=== PATIENT | female | born 1995 | race Caucasian/White ===

== ENCOUNTER → 2016-07-25 | Outpatient (CLI) | payer MEDICAID ==
[~2016-07-25] MED LIST: BUPR-42 PO; HYDR-3730 PO; HYDR-3812 PO; IBUP-30 PO
--- OUTSIDE RECORDS SUMMARY | 2016-07-25 13:53 | XMS REPORT ---
Author Author ROMYSCOOTER EMANUEL Organization [facility] Address [address] [place] [address] Care Team Providers Care Plumbing Mechanic Name Role Phone SCOOTER STANTON Unavailable PROBLEMS Type Condition ICD9-CM Code BGU08-RP Code Onset Dates Condition Status SNOMED Code Problem Severe episode of recurrent major depressive disorder, without psychotic features F33.2 Active 67958855 Assessment Severe episode of recurrent major depressive disorder, without psychotic features F33.2 Apr, Active [id number] Assessment STD exposure Z20.2 Apr, Active [id number] ALLERGIES Substance Reaction Event Type Date Status Amoxicillin Unknown Drug Allergy Apr, Active Pertussis, Acellular Unknown Non Drug Allergy Apr, Active SOCIAL HISTORY No smoking Hx information available PLAN OF CARE Activity Details Pending Test GC/CHLAM PROBE (STATE) 2 - 3 Days (Saturday),Reason: VITAL SIGNS Height 64 in 2016-04-27 Weight 148.4 lbs 2016-04-27 Heart Rate 74 bpm 2016-04-27 Respiratory Rate 16 2016-04-27 BMI 25.47 kg/m2 2016-04-27 Blood pressure systolic 121 mmHg 2016-04-27 Blood pressure diastolic 67 mmHg 2016-04-27 MEDICATIONS Medication Instructions Dosage Frequency Start Date End Date Duration Status Fluoxetine HCl 20 mg Orally Once a day 1 tablet in the morning 24h Apr, 30 day(s) Active Mirena 20 MCG/24HR as directed Feb, Active RESULTS Name Result Date Reference Range TRICHOMONAS (IN HOUSE) 2016-04-27 TRICHOMONAS Negative Control + Lot # [id number] Exp date BACTERIAL VAGINOSIS (IN HOUSE) 2016-04-27 RESULTS Negative Control + Lot # [id number] Exp date GC/CHLAM PROBE (STATE) 2016-04-27 CHLAMYDIA Neg GC Neg PROCEDURES Procedure Date Ordered Related Diagnosis Body Site No Charge Apr 27, 2016 LAB NOT BILLED BY [facility] Apr 27, 2016 Office Visit, Est Pt., Level 3 Apr 27, 2016 ANDRES VAG, DNA, DIR PROBE Apr 27, 2016 IMMUNIZATIONS No Known Immunizations
--- NOTE | 2016-07-25 20:37 | Diagnostic Imaging Report ---
INDICATION: Right breast mass. EXAMINATION: Ultrasound of the right breast. COMPARISON: No prior study is available for comparison. FINDINGS: By history, the patient has a palpable mass in the 6 o'clock position of the right breast. According to the patient, this has been there for approximately one year but is increasing in size. Ultrasound examination of the area of concern shows that there is a fairly well-circumscribed 3.3 x 1.6 x 1.9 cm solid mass. Just lateral to this mass, there is a much smaller 1.0 x 0.7 x 1.1 cm similar appearing solid mass. 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 If further evaluation is desired, then either ultrasound-guided biopsy or excisional biopsy would be recommended. No other abnormality is identified. According to patient, her mother was diagnosed with breast cancer at age 25. In my conversation with the patient, the patient stated that neither she nor her mother had been tested for breast cancer gene. I do feel it would be worthwhile for the patient to undergo testing for the breast cancer gene. Also, in lieu of a mammogram, a baseline MRI should also be performed. IMPRESSION: 1. There is a solid mass near the patient's palpable abnormality. There is a second much smaller mass in this same region. 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 Recommendations as above. 2. Given the patient's very strong family history for breast cancer, testing for the breast cancer Gene and a baseline MRI would also be recommended. 3. These results were were discussed with Dr. Lorraine Zhang.. ACR BI-RADS Category 4A: Low suspicion of malignancy. Result letter will be mailed to the patient. Note: At least 10% of breast cancer is not imaged by mammography. CRITICAL FINDINGS Dictated by: Dictated on workstation # [id number]
== END ==
LOC: RAD 13:50
PROVIDERS: ATTEND Nurse Practitioner Family
DX: N63 Unspecified lump in breast (principal)
CPT/HCPCS: 76641

== ENCOUNTER → 2016-08-02 | Outpatient (CLI) | payer MEDICAID ==
[~2016-08-02] MED LIST changes: +GADOBUTROL 7.5 MMOL/7.5 ML (GADAVIST) VIAL IV ONE
--- NOTE | 2016-08-06 13:50 | Diagnostic Imaging Report ---
TECHNIQUE: Utilizing 1.5 Alia magnet, patient was placed in a prone position with 8-channel dual breast coil utilized. Axial STIR precontrasted image and axial T1 fat-sat postcontrast high-resolution images obtained. Sagittal T2-weighted images precontrast, bilaterally, as well. Sagittal vibrant temporal images were obtained pre and post contrast with bolus technique utilized of gadolinium. Images are postcontrast immediately and subsequently for 7 minutes. Pre and post contrasted images are then evaluated with [employer] for evaluation of possible angiogenesis. INDICATION: Palpable abnormality, breast mass. COMPARISON: Ultrasound dated 07/25/2016. FINDINGS: The bilateral breasts demonstrate moderate background glandularity. The bilateral breasts demonstrate mild background enhancement. No significant axillary or internal mammary adenopathy. Visualized portions of the upper abdomen are unremarkable. There is a lobulated T2 hyperintense mass with internal low signal intensity septations within the right breast at 6 o'clock within the retroareolar region. This demonstrates progressive kinetics. This measures 2.7 x 1.9 1.7 cm. This corresponds to the sonographically visualized mass as well as the palpable abnormality. Additionally, within the middle to posterior depth of the right breast near 7 o'clock, there is an ovoid circumscribed mass which is T2 hyperintense which measures 1.2 x 1.0 cm. This demonstrates progressive kinetics. No additional suspicious mass or non-mass enhancement within the right breast. No suspicious mass or non-mass enhancement within the left breast. IMPRESSION: 1. 2.7 cm mass within the right retroareolar region at 6 o'clock corresponding to the palpable abnormality and corresponding to the previously noted sonographic mass is of low suspicion of malignancy. This likely relates to a fibroadenoma. However, given size and patient's family history, an ultrasound-guided biopsy is recommended. 2. Circumscribed T2 hyperintense mass within the right breast at 7 o'clock, corresponding to the additional sonographically visualized mass. This likely relates to a fibroadenoma. If the biopsy of the dominant mass within the right breast demonstrates a fibroadenoma, then a followup ultrasound in six months would be recommended for this mass. However, if the biopsy from the dominant mass within the right breast within the retroareolar region demonstrates malignancy or a high-risk lesion, then ultrasound-guided biopsy of this second mass should also be performed. BI-RADS category 4: Low suspicion of malignancy, ultrasound-guided biopsy is recommended. FOLLOWUP: 1. Ultrasound-guided biopsy of the dominant mass within the right breast at 6 o'clock within the retroareolar region is recommended. 2. Management of the second smaller mass within the right breast at 7 o'clock as described above. 3. Given provided family history of breast cancer, consideration for genetic counseling is recommended. Dictated by: Dictated on workstation # [id number]
== END ==
LOC: RAD 15:06
PROVIDERS: ATTEND Nurse Practitioner Family
DX: N63 Unspecified lump in breast (principal); Z80.3 Family history of malignant neoplasm of breast
CPT/HCPCS: 77059

== ENCOUNTER 2016-09-17 14:49 | Outpatient (CLI) | payer MEDICAID ==
[~2016-09-17] VITALS: Ht 165.1 cm; Wt 66.7 kg
[~2016-09-17 14:49] MED LIST changes: -GADOBUTROL 7.5 MMOL/7.5 ML (GADAVIST) VIAL IV ONE; -HYDR-3730 PO
[2016-09-17 14:55] VITALS: BP 114/66
[2016-09-20] MEDS ORDERED: HYDR-3730 PO (10:44)
== END 2016-09-17 15:05 | disposition home or self-care (01) ==
LOC: PREOP 14:49
PROVIDERS: ATTEND Surgery Pediatric Surgery
DX: Z01.812 Encounter for preprocedural laboratory examination (principal); Z11.2 Encounter for screening for other bacterial diseases; N63 Unspecified lump in breast
CPT/HCPCS: 84703; 87081

== ENCOUNTER 2016-09-20 08:45 | Day surgery (SDC) | payer MEDICAID ==
[~2016-09-20] VITALS: Ht 165.1 cm; Wt 66.7 kg
[2016-09-20] MEDS ORDERED: ceFAZolin 1,000 MG (ANCEF) VIAL ONE (09:08)
[2016-09-20] MEDS ORDERED: NS (IVPB) 50 ML ONE (09:09)
[2016-09-20 09:10] VITALS: BP 109/61
[2016-09-20] MEDS ORDERED: BUP/EPI 0.5% 1:200,000 (SENSORCAINE) 30 ML VIAL ONE (09:16)
[2016-09-20] MEDS ORDERED: DEXAMETHASONE PF 10 MG/ML (DECADRON) VIAL ONE (09:23)
[2016-09-20] MEDS ORDERED: fentaNYL INJECTION 100 MCG/2 ML AMP ONE (09:23)
[2016-09-20] MEDS ORDERED: LIDOCAINE PF 2% 10 ML (XYLOCAINE) AMP ONE (09:23)
[2016-09-20] MEDS ORDERED: proPOfol 200 MG/20 ML (DIPRIVAN) VIAL IV ONE (09:23)
[2016-09-20] MEDS ORDERED: SEVOFLURANE (ULTANE) 15 ML INHAL SOLN ONE (09:23)
[2016-09-20] MEDS ORDERED: ONDANSETRON 4 MG/2 ML (SDV) Z0FRAN ONE ×2 (09:23→11:07)
[2016-09-20] MEDS ORDERED: MIDAZOLAM 2 MG/2 ML (VERSED) VIAL ONE (09:23)
[2016-09-20] MEDS ORDERED: LACTATED RINGERS 1,000 ML IV PRN (09:24)
--- NOTE | 2016-09-20 09:29 | Progress Note-Pre Operative ---
Pre-Operative Progress Note H&P Reviewed The H&P was reviewed, patient examined and no changes noted. Date H&P Reviewed: September 20, 2016 Time H&P Reviewed: 09:20 Pre-Operative Diagnosis: symptomatic palpable right breast mass VANDANA SALAZAR MD September 20, 2016 9:29 am
[2016-09-20] MEDS ORDERED: ACETAMINOPHEN 325 MG TABLET/CAPLET (TYLENOL) PO PRN (09:30)
[2016-09-20] MEDS ORDERED: morphine INJ 10 MG/ML 1ML (SYR OR VIAL) IVP PRN ×2 (09:30→11:00)
[2016-09-20] MEDS ORDERED: HYDROcodone/APAP 5 MG/325 MG (LORTAB) TAB PO ONE (09:30)
[2016-09-20] MEDS ORDERED: ceFAZolin 1 GM/NS 50 ML IVPB IV ONE ×2 (09:30)
[2016-09-20] MEDS ORDERED: ONDANSETRON 4 MG/2 ML (SDV) Z0FRAN IVP PRN ×2 (09:30→11:00)
--- NOTE | 2016-09-20 10:42 | Progress Note-Post Operative ---
Post-Operative Progess Note Surgeon (s)/Wharf Tender Head (s) Surgeon VANDANA SALAZAR MD Wharf Tender Head: bean vigil APRN Pre-Operative Diagnosis symptomatic palpable right breast mass Post-Operative Diagnosis same Post-Op Procedure Note Date of Procedure: September 20, 2016 Name of Procedure Performed: excsional biopsy breast mass (4cm) Description of the Procedure: excsional biopsy breast mass (4cm) Findings of the Procedure . Anesthesia Type general LMA Estimated blood loss (mL): minimal Specimen(s) collected/removed right breast mass VANDANA SALAZAR MD September 20, 2016 10:42 am
[2016-09-20] MEDS ORDERED: HYDR-3730 PO (10:44)
--- NOTE | 2016-09-20 10:45 | Discharge Inst-Surgical ---
D/C Lap Instructions-MARIE New, Converted, or Re-Newed RX: RX on Chart Follow Up Appt in 2 weeks Activity as tolerated No driving for 24 hours No driving while on pain medications Regular Diet Symptoms to Report: Fever over 101 degree F, Nausea/Vomiting Infection Signs and Symptoms to report: Increased redness, Foul odor of wound, Increased drainage Bathing instructions: May shower Operative Area Clean/Dry; Keep incision clean/dry If any problems/questions: Contact your physician or go to Emergency Room VANDANA SALAZAR MD September 20, 2016 10:45 am
[2016-09-20] MEDS ORDERED: MEPERIDINE (DEMEROL) INJ 50 MG/ML IVP PRN (11:00)
[2016-09-20] MEDS ORDERED: morphine INJ 10 MG/ML 1ML (SYR OR VIAL) ONE (11:07)
[2016-09-20] MEDS ORDERED: MEPERIDINE (DEMEROL) INJ 50 MG/ML ONE (11:19)
[2016-09-20 11:50] VITALS: BP 103/78
[2016-09-20 12:20] VITALS: BP 103/68
[2016-09-20 12:50] VITALS: BP 108/71
--- NOTE | 2016-09-21 03:23 | OPERATIVE REPORT ---
DATE OF SERVICE: 09/20/2016 ATTENDING PRIMARY CARE PHYSICIAN: Dr. Lorraine Zhang. PREOPERATIVE DIAGNOSIS: Symptomatic palpable right breast lesion. POSTOPERATIVE DIAGNOSIS: Symptomatic palpable right breast lesion with the dimensions of the lesion approximately 4 cm in size. PROCEDURE: Excisional right breast biopsy. SURGEON: Dr. Salazar. PHARMACY OPERATIONS SPECIALIST: [place] APRN. ANESTHESIA: General laryngeal mask airway. ESTIMATED BLOOD LOSS: Minimal. 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 DISPOSITION: The patient tolerated the procedure well. INDICATION: The patient is a 21-year-old female who is referred over to us for a symptomatic right breast lesion. She reports that the lesion has been around for approximately one year and did notice this more after being and giving . Overall, this lesion has been noticeable for the past 2-1/2 years. She has noticed increase in the size of the lesion and the lesion has become painful. An ultrasound was performed, which did show a solid mass. She then underwent an MRI which did show approximately a 3 cm lesion as well as another lesion adjacent or connected to it. Upon further questioning, she reports that she began menarche at around age 12 and has been twice with one miscarriage and 1 live . She has not had any previous breast biopsies. She also does not report any breast changes including no asymmetries or skin dimpling as well as no abnormal nipple discharge. She does report a remote family history of breast cancer with her maternal grandmother having the disease. Her mother also had benign disease; however, did undergo what sounds to be a simple right mastectomy. DESCRIPTION OF PROCEDURE: The patient was brought to the operating room, laid supine on the table. After adequate IV pain and sedative medications and general laryngeal mask airway intubation, the chest and neck were prepped and draped in standard surgical fashion. Then, 0.5% Marcaine with epinephrine was used to anesthetize the overlying skin at the nipple areolar complex. A crescent-shaped skin incision along the nipple areolar complex was then made using a 15 blade. The lesion was then identified and completely dissected out. The lesion appeared to be well-encapsulated, large and very hard in consistency and easily movable. 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 The lesion was then completely excised with a rim of normal appearing tissue approximately 1 cm using electrocautery. Good hemostasis was observed. The specimen was sent to pathology. The breast tissue was then loosely approximated using interrupted 3-0 Vicryl sutures. The skin was closed using 4-0 Monocryl running subcuticular suture. The wound was then cleaned and covered with Dermabond. The patient tolerated the procedure well. We will start IV and oral pain medication as well as a clear liquid diet. Once she is tolerating clears and has good pain control with oral pain medications and ambulating well, we will discharge her home. We will have her follow up in the office as well. Job ID: [id number] DocumentID: [id number] Dictated Date: 09/20/2016 10:51:12 Program Management Analyst Date: 09/21/2016 00:08:22 Dictated By: VANDANA SALAZAR MD MTDD
== END 2016-09-20 13:00 | disposition home or self-care (01) ==
LOC: SDC 08:45
PROVIDERS: ATTEND Surgery Pediatric Surgery
DX: N60.91 Unspecified benign mammary dysplasia of right breast (principal); Z80.3 Family history of malignant neoplasm of breast; Z87.891 Personal history of nicotine dependence
CPT/HCPCS: 88305

== ENCOUNTER 2016-10-16 14:56 | Emergency (ER) | payer MEDICAID ==
[~2016-10-16] VITALS: Ht 165.1 cm; Wt 68.0 kg
[~2016-10-16 14:56] MED LIST changes: +HYDR-3730 PO
[2016-10-16 15:22] LABS: BILIRUBIN,URINE NEGATIVE (NEGATIVE); KETONES,URINE NEGATIVE (NEGATIVE); LEUKOCYTE ESTERASE ,URINE 1+ (NEGATIVE); NITRITE,URINE NEGATIVE (NEGATIVE); PH,URINE 6.5 (5-9); PROTEIN,URINE NEGATIVE (NEGATIVE); UROBILINOGEN,URINE NORMAL (NORMAL)
[2016-10-16 15:36] LABS: MEAN PLATELET VOLUME 9.5 FL (7.4-10.4); RED BLOOD COUNT 5.06 10^6/uL (4.35-5.85); WHITE BLOOD COUNT 7.7 10^3/uL (4.3-11.0)
--- NOTE | 2016-10-16 17:15 | ED GU-Female ---
General Chief Complaint: -Female Stated Complaint: CRAMPING/BLEEDING DURING Nursing Triage Note: PT STATED SHE IS APPROX 7 WEEKS AND APPROX 30 MIN AGO HAD HEAVY BLEEDING AND CRAMPING. Nursing Sepsis Screen: No Definite Risk Source: patient, old records Exam Limitations: no limitations History of Present Illness Time seen by provider: 15:05 Initial Comments This 21-year-old woman presents to the emergency room at an estimated 7 weeks gestational age with complaints of vaginal bleeding. LMP was September 01. She had a positive test at home and at Dr. HUDSON's office. She has some mild cramping pain associated with the bleeding. This started about 30 minutes prior to arrival. She denies any recent intercourse or anything else vaginally. She has had a thin whitish discharge last couple of days but nothing unusual. She denies any dysuria. She has no significant pain. Allergies and Home Medications Allergies Coded Allergies: amoxicillin (Unverified Allergy, Mild, rash, 09/20/16) pertussis vaccine,adsorbed (Unverified Allergy, Unknown, 10/14/15) Home Medications Hydrocodone/Acetaminophen 1 Each Tablet, 1-2 EACH PO Q6H, #35 Prescribed by: VANDANA SALAZAR on 09/20/16 1044 Constitutional: no symptoms reported EENTM: no symptoms reported Respiratory: no symptoms reported Cardiovascular: no symptoms reported Gastrointestinal: no symptoms reported Genitourinary: see HPI : Yes LMP: Sep 01, 2016 Musculoskeletal: no symptoms reported Skin: no symptoms reported Psychiatric/Neurological: No Symptoms Reported Endocrine: No Symptoms Reported Past Udrkhzq-Rsuags-Ymqtkj Hx Patient Social History Alcohol Use: Denies Use Recreational Drug Use: No Smoking Status: Never a Smoker 2nd Hand Smoke Exposure: No Recent Foreign Travel: No Contact w/Someone Who Travel: No Recent Infectious Disease Expo: No Recent Hopitalizations: Yes (September TUMOR REMOVAL ON BREAST) Immunizations Up To Date Tetanus Booster (TDap): More than 5yrs PED Vaccines UTD: No Seasonal Allergies Seasonal Allergies: No Surgeries HX Surgeries: Yes Surgeries: Breast (lumpectomy) Respiratory Hx Respiratory Disorders: No Cardiovascular Hx Cardiac Disorders: No Neurological Hx Neurological Disorders: No Reproductive System Hx Reproductive Disorders: No Sexually Transmitted Disease: Yes (chlamydia 02/2015) HIV/AIDS: No Genitourinary Hx Genitourinary Disorders: No Gastrointestinal Hx Gastrointestinal Disorders: Yes Gastrointestinal Disorders: Gastroesophageal Reflux Musculoskeletal Hx Musculoskeletal Disorders: No Endocrine Hx Endocrine Disorders: No HEENT HX ENT Disorders: No Cancer Hx Cancer: No Psychosocial Hx Psychiatric Problems: Yes Behavioral Health Disorders: Depression Integumentary HX Skin/Integumentary Disorder: No Blood Transfusions Hx Blood Disorders: No Adverse Reaction to a Blood Tr: No Family Medical History Family Medial History: Patient reports no known family medical history. Physical Exam Vital Signs Vital Sign - Last 12Hours 10/16/16 15:03 Temp 97.9 Pulse 94 Resp 20 B/P (MAP) 134/65 Pulse Ox 98 O2 Delivery Room Air Capillary Refill : Less Than 3 Seconds General Appearance: WD/WN, no apparent distress HEENT: PERRL/EOMI, normal ENT inspection Neck: normal inspection Cardiovascular: regular rate, rhythm, no edema, no murmur Respiratory: lungs clear, normal breath sounds, no respiratory distress, no accessory muscle use Gastrointestinal: normal bowel sounds, soft, tenderness (minimal in the suprapubic region) Extremities: normal inspection, no pedal edema Neurologic/Psychiatric: patient representative II-XII nml as tested, no motor/sensory deficits, alert, normal mood/affect, oriented x 3 Skin: normal color, warm/dry Progress/Results/Core Measures Results/Orders Lab Results My Orders Vital Signs/I&O Blood Pressure Mean: 88 Point of Care Testing Urine -Bedside: Positive Progress Note : Progress Note Viable could not be confirmed, likely due to early gestational age. Discharge instructions discussed with patient. Expectations reviewed. Patient instructed to follow-up with Dr. HUDSON. Diagnostic Imaging Diagonstic Imaging: Ultrasound Plain Films/CT/US/NM/MRI: pelvis Comments NAME: BETTY BERNAL [facility] REC#: [id number] PT STATUS: DEP ER : 1995 PHYSICIAN: ERNESTO TORRES MD ADMIT DATE: 10/16/16/ER Signed Date of Exam: 10/16/16 US OB<14 WKS SNGLE W/TRANSVAG INDICATION: . Vaginal bleeding. Cramping. COMPARISON: None. TECHNIQUE: Transpelvic and transvaginal sonogram was performed. FINDINGS: There is a single intrauterine gestational sac, which measures approximately 1.4 cm in diameter. Within the gestational sac, a yolk sac is identified. There is also suggestion of a small pole. Possible pole measures approximately 2 mm in length consistent with 5 weeks and 6 days old gestation. heartbeat cannot be identified, but this may be related to early gestation. Ovaries cannot be adequately identified on either side, but no adnexal masses or free fluid is seen. CLINICAL DATES: Gestational age 6 weeks and 3 days. MUSHTAQ is 06/08/2017. IMPRESSION: 1. Single intrauterine gestational sac containing a yolk sac and possible pole. Based on size measurements of the gestational sac and potential pole, estimated gestational age is 6 weeks and 0 days with estimated date delivery of 06/11/2017. 2. heartbeat cannot be identified. This however may be related to early gestation. Correlation with serial beta-hCG is recommended. If indicated, short interval sonographic follow-up could be performed. Dictated by: Dictated on workstation # [id number] Dict: 10/16/16 1727 Trans: 10/17/1612 Interpreted by: RUSS WEBB Electronically signed by: RUSS WEBB 10/17/16 09 Departure Impression Impression: Primary Impression: Threatened miscarriage in early Disposition: HOME, SELF-CARE Condition: Stable Departure-Patient Inst. Decision time for Depature: 17:05 Referrals: PARUL HUDSON DO (PCP/Family) Primary Care Physician Patient Instructions: Threatened Miscarriage Add. Discharge Instructions: Follow-up with Dr. HUDSON as soon as possible. Contact his office in the morning for further instructions. For pain and cramping you may take Tylenol ( acetaminophen) up to 1000 g every 6 hours as needed. Stay well-hydrated. You should observe vaginal rest (nothing vaginally) until cleared by Dr. HUDSON. Return to the ER if you develop additional symptoms such as severe pain, severe bleeding, or fever greater than 100. All discharge instructions reviewed with patient and/or family. Voiced understanding. Copy Copies To 1: PARUL HUDSON JOSHUA T MD October 16, 2016 17:15
--- NOTE | 2016-10-16 17:34 | Diagnostic Imaging Report ---
INDICATION: . Vaginal bleeding. Cramping. COMPARISON: None. TECHNIQUE: Transpelvic and transvaginal sonogram was performed. FINDINGS: There is a single intrauterine gestational sac, which measures approximately 1.4 cm in diameter. Within the gestational sac, a yolk sac is identified. There is also suggestion of a small pole. Possible pole measures approximately 2 mm in length consistent with 5 weeks and 6 days old gestation. heartbeat cannot be identified, but this may be related to early gestation. Ovaries cannot be adequately identified on either side, but no adnexal masses or free fluid is seen. CLINICAL DATES: Gestational age 6 weeks and 3 days. MUSHTAQ is 06/08/2017. IMPRESSION: 1. Single intrauterine gestational sac containing a yolk sac and possible pole. Based on size measurements of the gestational sac and potential pole, estimated gestational age is 6 weeks and 0 days with estimated date delivery of 06/11/2017. 2. heartbeat cannot be identified. This however may be related to early gestation. Correlation with serial beta-hCG is recommended. If indicated, short interval sonographic follow-up could be performed. Dictated by: Dictated on workstation # [id number]
[2016-10-16 17:42] VITALS: BP 111/55
== END 2016-10-16 17:42 | disposition home or self-care (01) ==
LOC: EDUNIT# 14:56 → ER 14:58
DX: O20.0 Threatened abortion (principal); Z3A.01 Less than 8 weeks gestation of pregnancy
CPT/HCPCS: 36415; 76801; 76817; 81000; 84702; 84703; 85027; 99282

== ENCOUNTER → 2017-01-23 | Outpatient (CLI) | payer MEDICAID ==
--- NOTE | 2017-01-23 19:35 | Diagnostic Imaging Report ---
INDICATION: survey. TECHNIQUE: Multiple real-time grayscale images were obtained over the gravid uterus. COMPARISON: 10/16/2016. FINDINGS: The previous OB ultrasound exam of 10/16/2016 suggested an intrauterine gestational sac and raised the question of a pole. The gestational sac measurements were felt to correspond to a 6 week +/- 1-1/2 week. On this exam, there is a single live fetus in transverse presentation. heart motion is noted and a rate of 155 bpm is recorded. There are no abnormalities visualized, but the four-chamber heart view is less than optimal due to lie. The growth parameters are fairly uniform and have progressed as expected since the prior exam. The placenta is anterior and there is no previa. The amniotic fluid volume is within normal limits. IMPRESSION: 1. There is single live fetus of approximately 20 weeks gestation +/- 1 week. The EDC is June 12, 2017. 2. There are no abnormalities identified, but the four-chamber heart view is less than optimal. A short-term (4-6 weeks) follow-up ultrasound exam will be recommended for further study. 3. The growth parameters are fairly uniform. Biometrical measurements are as follows: Biparietal 4.53 cm, age 19 weeks 5 days. Head circumference 17.3 cm, age 19 weeks 6 days. Abdominal circumference 14.14 cm, age 19 weeks 4 days. Femur length 3.32 cm, age 20 weeks 3 days. Sonographic estimate age: 20 weeks 0 days. Sonographic estimated date of delivery: 06/12/2017. Estimated Weight: 320 gm (+/- 47 gm). LMP percentile: 40%. heart rate: 155 beats per minute. number: 1 of 1. Dictated by: Dictated on workstation # [id number]
== END ==
LOC: RAD 13:02
PROVIDERS: ATTEND Obstetrics & Gynecology
DX: Z36 Encounter for antenatal screening of mother (principal); Z3A.20 20 weeks gestation of pregnancy
CPT/HCPCS: 76805

== ENCOUNTER 2017-02-12 09:50 | Outpatient (CLI) | payer MEDICAID ==
[~2017-02-12] VITALS: Ht 165.1 cm; Wt 72.1 kg
[2017-02-12 10:30] VITALS: BP 113/62
[2017-02-12 11:34] LABS: BILIRUBIN,URINE NEGATIVE (NEGATIVE); KETONES,URINE NEGATIVE (NEGATIVE); LEUKOCYTE ESTERASE ,URINE 1+ (NEGATIVE); NITRITE,URINE NEGATIVE (NEGATIVE); PH,URINE 7 (5-9); PROTEIN,URINE NEGATIVE (NEGATIVE); UROBILINOGEN,URINE NORMAL (NORMAL)
[2017-02-12 11:40] LABS: WBC,URINE RARE /HPF
--- NOTE | 2017-02-13 15:04 | Physician Query-Final Dx ---
CLEMENCIA DUEÑAS 02/13/17 1504: Clinic Account Progress/Dx Physician Query: Please give diagnosis Date of Service Feb 12, 2017 at 09:50 JOSE MARIA HANKINS DO 03/01/17 1834: Clinic Account Progress/Dx DIAGNOSIS: Diagnosis fall in CLEMENCIA DUEÑAS Feb 13, 2017 15:04 JOSE MARIA HANKINS DO Mar 01, 2017 18:34
== END 2017-02-12 11:35 | disposition home or self-care (01) ==
LOC: LDRP 09:50 → WSo 09:50
PROVIDERS: ATTEND Obstetrics & Gynecology
DX: Z33.1 Pregnant state, incidental (principal); W10.9XXA Fall (on) (from) unspecified stairs and steps, initial encounter; Y92.018 Other place in single-family (private) house as the place of occurrence of the external cause
CPT/HCPCS: 81000; 87088; 99212

== ENCOUNTER → 2017-02-25 | Outpatient (CLI) | payer MEDICAID | LOC: CARD 12:35 | PROVIDERS: ATTEND Internal Medicine Cardiovascular Disease | DX: O99.89 Other specified diseases and conditions complicating pregnancy, childbirth and the puerperium (principal); R55 Syncope and collapse | CPT/HCPCS: 93306 ==

== ENCOUNTER 2017-04-15 12:09 | Observation (INO) | payer MEDICAID ==
[2017-04-15 12:15] VITALS: BP 130/66
[2017-04-15] MEDS ORDERED: BETAMETHASONE ACE/NA PHOS 6 MG/ML (CELESTONE SOLUSPAN) ONE (13:23)
--- NOTE | 2017-04-15 13:29 | Diagnostic Imaging Report ---
INDICATION: Vaginal bleeding. TECHNIQUE: Multiple real-time grayscale images were obtained over the gravid uterus. COMPARISON: 01/23/2017. FINDINGS: There is a single living intrauterine in cephalic presentation. The biometry correlates with gestational age of 32 weeks 3 days. The placenta is anterior. There is no previa. There is no evidence of abruption. Amniotic fluid index is 8.3. Heart rate is 143 beats per minute. The anatomical survey is grossly unremarkable. Biometrical measurements are as follows: Biparietal 8.3 cm, age 33 weeks 4 days. Head circumference 29.0 cm, age 32 weeks 0 days. Abdominal circumference 28.3 cm, age 32 weeks 3 days. Femur length 6.0 cm, age 31 weeks 3 days. Sonographic estimate age: 32 weeks 3 days. Sonographic estimated date of delivery: 06/07/17. Estimated Weight: 1908 gm (+/- 279 gm). LMP percentile: 52%. heart rate: 143 beats per minute. number: 1 of 1. IMPRESSION: Single living intrauterine with sonographically estimated gestational age of 32 weeks 3 days and estimated date of confinement of 06/07/2017. Dictated by: Dictated on workstation # [id number]
[2017-04-15] MEDS ORDERED: INFLUENZA TRIvalent 2017-2018 0.5 ML/45 MCG SYR IM ONE (13:30)
[2017-04-15] MEDS ORDERED: MAGNESIUM 4 GM/100 ML IVPB 100 ML IV ONE (15:26)
[2017-04-15] MEDS ORDERED: MAGNESIUM SULFATE DRIP 500 ML IV ONE (15:26)
[2017-04-15] MEDS ORDERED: D5 LR IV SOLUTION 1,000 ML IV ONE (15:26)
[2017-04-15] MEDS ORDERED: D5 LR IV SOLUTION 1,000 ML IV SCH (15:29)
[2017-04-15] MEDS ORDERED: CALCIUM GLUC. 10% 4.65 MEQ/10 ML VIAL IV PRN (15:30)
[2017-04-15] MEDS ORDERED: MAGNESIUM 4 GM/100 ML IVPB 100 ML IV NR (15:30)
[2017-04-15 15:50] VITALS: BP 125/62
[2017-04-15] MEDS ORDERED: MAGNESIUM SULFATE DRIP 500 ML IV SCH (15:59)
--- OUTSIDE RECORDS SUMMARY | 2017-04-15 16:04 | XMS REPORT ---
Author Author MILADY NG Organization [facility] Address [address] [place] [address] Care Team Providers Care Medical Assistant Supervisor Name Role Phone MILADY NG Unavailable PROBLEMS Type Condition ICD9-CM Code [id number] Code Onset Dates Condition Status SNOMED Code Problem Dental examination Z01.20 Active 995076444 Problem Severe episode of recurrent major depressive disorder, without psychotic features F33.2 Active [id number] ALLERGIES Substance Reaction Event Type Date Status Amoxicillin Unknown Drug Allergy Jun, Active Pertussis, Acellular Unknown Non Drug Allergy Jun, Active SOCIAL HISTORY Never Assessed PLAN OF CARE Activity Details Follow Up F/U mammogram, sooner prn Reason: VITAL SIGNS Height 64 in 2016-07-17 Weight 140.5 lbs 2016-07-17 Temperature 98.6 degrees Fahrenheit 2016-07-17 Heart Rate 68 bpm 2016-07-17 Respiratory Rate 18 2016-07-17 BMI 24.11 kg/m2 2016-07-17 Blood pressure systolic 112 mmHg 2016-07-17 Blood pressure diastolic 72 mmHg 2016-07-17 MEDICATIONS Medication Instructions Dosage Frequency Start Date End Date Duration Status Fluoxetine HCl 40 MG Orally Once a day 1 capsule in the morning 24h Apr 30 days Active Mirena 20 MCG/24HR as directed Feb, Active RESULTS No Results PROCEDURES No Known procedures IMMUNIZATIONS No Known Immunizations MEDICAL (GENERAL) HISTORY Type Description Date Medical History Depression Medical History Jun 12 2017 due date for this Hospitalization History child 2016
--- OUTSIDE RECORDS SUMMARY | 2017-04-15 16:04 | XMS REPORT ---
Author Author SCOOTER STANTON Organization [facility] Address [address] [place] [address] Care Team Providers Care Fan Engine Engineer Name Role Phone SCOOTER STANTON Unavailable PROBLEMS Type Condition ICD9-CM Code [id number] Code Onset Dates Condition Status SNOMED Code Problem Dental examination Z01.20 Active [id number] Problem Severe episode of recurrent major depressive disorder, without psychotic features F33.2 Active [id number] ALLERGIES Substance Reaction Event Type Date Status Amoxicillin Unknown Drug Allergy May, Active Pertussis, Acellular Unknown Non Drug Allergy May, Active SOCIAL HISTORY No smoking Hx information available PLAN OF CARE Activity Details Follow Up 6 Months Reason:Depression VITAL SIGNS Height 64 in 2016-05-24 Weight 145 lbs 2016-05-24 Temperature 98.3 degrees Fahrenheit 2016-05-24 Heart Rate 70 bpm 2016-05-24 Respiratory Rate 20 2016-05-24 BMI 24.89 kg/m2 2016-05-24 Blood pressure systolic 118 mmHg 2016-05-24 Blood pressure diastolic 76 mmHg 2016-05-24 MEDICATIONS Medication Instructions Dosage Frequency Start Date End Date Duration Status Mirena 20 MCG/24HR as directed Feb, Active Fluoxetine HCl 40 MG Orally Once a day 1 capsule in the morning 24h Apr 30 days Active RESULTS No Results PROCEDURES Procedure Date Ordered Related Diagnosis Body Site Office Visit, Est Pt., Level 3 May 24, 2016 IMMUNIZATIONS No Known Immunizations
--- OUTSIDE RECORDS SUMMARY | 2017-04-15 16:04 | XMS REPORT ---
Author Author SCOOTER STANTON [facility] Address [address] [place] [address] Care Team Providers Care Cake Decorator Name Role Phone SCOOTER STANTON Unavailable PROBLEMS Type Condition ICD9-CM Code [id number]-SD Code Onset Dates Condition Status SNOMED Code Problem Dental examination Z01.20 Active 609340244 Problem Severe episode of recurrent major depressive disorder, without psychotic features F33.2 Active [id number] ALLERGIES No Information SOCIAL HISTORY Never Assessed PLAN OF CARE VITAL SIGNS MEDICATIONS No Known Medications RESULTS No Results PROCEDURES No Known procedures IMMUNIZATIONS No Known Immunizations MEDICAL (GENERAL) HISTORY Type Description Date Medical History Depression Medical History Jun 12 2017 due date for this Hospitalization History child 2016
--- OUTSIDE RECORDS SUMMARY | 2017-04-15 16:04 | XMS REPORT ---
Author Author JEREMIAS RESENDIZ Organization [facility] Address [address] [place] [address] Care Team Providers Care Outside Rigger Name Role Phone JEREMIAS RESENDIZ Unavailable PROBLEMS Type Condition ICD9-CM Code YXZ75-DS Code Onset Dates Condition Status SNOMED Code Problem Dental examination Z01.20 Active [id number] Problem Severe episode of recurrent major depressive disorder, without psychotic features F33.2 Active 09004948 ALLERGIES Substance Reaction Event Type Date Status Amoxicillin Unknown Drug Allergy May, Active Pertussis, Acellular Unknown Non Drug Allergy May, Active SOCIAL HISTORY No smoking Hx information available PLAN OF CARE Activity Details Follow Up 2 - 3 Days, prn Reason: VITAL SIGNS Height 64 in 2016-06-05 Weight 141.3 lbs 2016-06-05 Temperature 98.5 degrees Fahrenheit 2016-06-05 Heart Rate 66 bpm 2016-06-05 Respiratory Rate 20 2016-06-05 Oximetry 96 % 2016-06-05 BMI 24.25 kg/m2 2016-06-05 Blood pressure systolic 102 mmHg 2016-06-05 Blood pressure diastolic 68 mmHg 2016-06-05 MEDICATIONS Medication Instructions Dosage Frequency Start Date End Date Duration Status Robitussin Chest Congestion 100 MG/5ML Orally every 4 hrs 10 ml as needed 4h May, Active Fluoxetine HCl 40 MG Orally Once a day 1 capsule in the morning 24h Apr 30 days Active PredniSONE 10 mg Orally twice a day 1 tablet 12h May, May, 05 days Active Mirena 20 MCG/24HR as directed Feb, Active RESULTS No Results PROCEDURES Procedure Date Ordered Related Diagnosis Body Site MEASURE BLOOD OXYGEN LEVEL Jun 05, 2016 Office Visit, Est Pt., Level 3 Jun 05, 2016 IMMUNIZATIONS No Known Immunizations
--- OUTSIDE RECORDS SUMMARY | 2017-04-15 16:04 | XMS REPORT ---
Author Author SCOOTER STANTON [facility] Address [address] [place] [address] Care Team Providers Care Applied Computer Science Professor Name Role Phone SCOOTER TSANTON Unavailable PROBLEMS Type Condition ICD9-CM Code [id number] Code Onset Dates Condition Status SNOMED Code Problem Dental examination Z01.20 Active 509745579 Problem Severe episode of recurrent major depressive disorder, without psychotic features F33.2 Active 83254559 ALLERGIES No Known Allergies SOCIAL HISTORY No smoking Hx information available PLAN OF CARE VITAL SIGNS MEDICATIONS Medication Instructions Dosage Frequency Start Date End Date Duration Status Fluoxetine HCl 40 MG Orally Once a day 1 capsule in the morning 24h Apr 30 days Active RESULTS No Results PROCEDURES No Known procedures IMMUNIZATIONS No Known Immunizations
--- OUTSIDE RECORDS SUMMARY | 2017-04-15 16:05 | XMS REPORT ---
Author Author MILADY NG [facility] Address [address] [place] [address] Care Team Providers Care Asphalt Spreader Name Role Phone MILADY NG Unavailable PROBLEMS Type Condition ICD9-CM Code QOO47-AV Code Onset Dates Condition Status SNOMED Code Problem Dental examination Z01.20 Active 183705485 Problem Severe episode of recurrent major depressive disorder, without psychotic features F33.2 Active [id number] ALLERGIES No Information SOCIAL HISTORY Never Assessed PLAN OF CARE VITAL SIGNS MEDICATIONS No Known Medications RESULTS Name Result Date Reference Range MRI : Breast, Bilateral 2016-08-02 PROCEDURES No Known procedures IMMUNIZATIONS No Known Immunizations MEDICAL (GENERAL) HISTORY Type Description Date Medical History Depression Medical History Jun 12 2017 due date for this Hospitalization History child 2015
[2017-04-15 16:15] VITALS: BP 120/62
[2017-04-15 16:30] VITALS: BP 106/59
[2017-04-15 16:40] VITALS: BP 116/66
--- NOTE | 2017-04-15 16:40 | History & Physical-OB ---
OB - Chief Complaint & HPI Date/Time Date of Admission: Date of Admission: Apr 15, 2017 at 3:00 pm Time Seen by Provider: 15:00 Chief Complaint/History OB-Reason for Admission/Chief: Labor Hx : 3 Hx Para: 1 Expected Date of Delivery: Jun 12, 2017 Gestational Age in Weeks: 31 Gestational Age in Days: 5 Other reason for admission: Patient presents with light vaginal bleeding and found to make cervical change Admission Nurse Assessment Rev: Yes History of Labs Apos Antibody neg RI RPR NR HBsAg NR HIV NR GC neg GBS unknown Allergies and Home Medications Allergies Coded Allergies: amoxicillin (Unverified Allergy, Mild, rash, 09/20/16) pertussis vaccine,adsorbed (Unverified Allergy, Unknown, 10/14/15) Home Medications No Active Prescriptions or Reported Meds OB - History Hx of Present Care: Yes Ultrasounds: Normal mid trimester US Obstetrical Complications: None Medical Complications: None Obstetrical History Hx Termination: Yes Hx Multiple Gestation: No Hx Stillbirth: No Hx Complication: No Hx Induced Hypertens: No Hx Maternal Gestational Diabet: No Delivery History Hx Dystocia: No Hx Large For Gestational Age I: No Hx Small for Gestational Age I: No Hx Section: No Hx Vaginal Delivery Post C-Sec: No Hx Blood Disorders: No Adverse Rxn to Tranfusion: No Patient Past Medical History PMHx: depression Social History/Family History HIV/AIDS: No Recent Infectious Disease Expo: No Sexually Transmitted Disease: Yes (chlamydia 02/2015) 2nd Hand Smoke Exposure: No Immunizations Hepatitis A: Yes Hepatitis B: Yes Tetanus Booster (TDap): More than 5yrs OB - Admission Exam Physical Exam Vitals: Vital Signs 04/15/17 16:15 Temp 98.0 Pulse 89 Resp 18 B/P (MAP) 120/62 O2 Delivery Room Air HEENT: NCAT Heart: Rhythm Normal Lungs: Clear Abdomen: Gravid Extremities: Normal Reflexes: Normal Cervical Dilatation: 4cm Effacement: 75% Station: -2 Membranes: Intact Heart Rate: 130's Accelerations: Accelerations Present Decelerations: Variable Decelerations Short Term Variability: Present Pneumatic Jacketer Variability: Average (6-25) Contractions on Admission: 6-10 Minutes Apart Intensity: Moderate Labs Laboratory Tests Test 04/15/17 16:00 Range/Units Magnesium Level 2.3 1.8-2.4 MG/DL OB - Assessment/Plan/Diagnosis Assessment Assessment: labor Plan Other Plan Spoke with Dr. Jones at [place] who accepted transfer due to PTL Starting MgSO4 for tocolysis Ancef given for GBS prophylaxis(PCN allergy) Transfer pending Discharge Diagnosis Diagnosis: 21 yo @ 31.5 labor GBS unknown PARUL HUDSON DO Apr 15, 2017 4:40 pm
[2017-04-15] MEDS ORDERED: ceFAZolin INJECTION 1,000 MG in NS (IVPB) 50 ML IV SCH (18:00)
[2017-04-16] MEDS ORDERED: BETAMETHASONE ACE/NA PHOS 6 MG/ML (CELESTONE SOLUSPAN) IM SCH (13:30)
== END 2017-04-15 16:55 | disposition designated cancer center or children's hospital (05) ==
LOC: WSo 12:09 → LDRP 12:10 → WSo 15:00
PROVIDERS: ADMIT Obstetrics & Gynecology; ATTEND Obstetrics & Gynecology
DX: O60.03 Preterm labor without delivery, third trimester (principal); Z3A.31 31 weeks gestation of pregnancy
CPT/HCPCS: 36415; 76816; 83735

== ENCOUNTER 2017-04-29 20:50 | Outpatient (CLI) | payer MEDICAID ==
[~2017-04-29] VITALS: Ht 165.1 cm; Wt 76.4 kg
[2017-04-29 21:30] VITALS: BP 128/62
[2017-04-29 22:00] VITALS: BP 118/57
--- NOTE | 2017-04-29 22:07 | Discharge Instructions ---
JOSEFA SAXENA MD Apr 29, 2017 10:07 pm
[2017-04-29 22:15] VITALS: BP 127/67
[2017-04-29 22:17] LABS: BASOPHILS % (AUTO) 0 % (0-10); EOSINOPHILS # (AUTO) 0.1 10^3/uL (0.0-0.3); EOSINOPHILS % (AUTO) 1 % (0-10); LYMPHOCYTES # (AUTO) 2.4 X 10^3 (1.0-4.0); LYMPHOCYTES % (AUTO) 21 % (12-44); MEAN CORPUSCULAR HEMOGLOBIN 29 PG (25-34); MEAN CORPUSCULAR HGB CONC 35 G/DL (32-36); MEAN CORPUSCULAR VOLUME 82 FL (80-99); MEAN PLATELET VOLUME 9.9 FL (7.4-10.4); MONOCYTES % (AUTO) 9 % (0-12); NEUTROPHILS # (AUTO) 7.7 X 10^3 (1.8-7.8); NEUTROPHILS % (AUTO) 69 % (42-75); PLATELET COUNT 203 10^3/uL (130-400); RED BLOOD COUNT 4.25 10^6/uL (4.35-5.85); RED CELL DISTRIBUTION WIDTH 13.6 % (10.0-14.5); WHITE BLOOD COUNT 11.2 10^3/uL (4.3-11.0)
--- NOTE | 2017-04-29 22:21 | History & Physical ---
History and Physical Date Seen by Provider: Apr 29, 2017 Time Seen by Provider: 22:10 THIS NOTE WILL SERVE ADMIT H&P, DISCHARGE AND TRANSFER NOTE this patient is a 21-year-old white female patient of Dr. Brand. She is currently 33-5/7 weeks gestation. She has had 1 prior vaginal delivery at 39 weeks gestation. Her history is unclear as to other she has had somewhere between 2 and 4 or 5 miscarriages all before 12 weeks gestation. She complains of spontaneous rupture membranes at 8 p.m. today with a large gush of clear fluid and has continued to leak fluid. She reports no contractions. She reports no bleeding. Indicates that one week ago she was evaluated for some vaginal bleeding and was found to be for half centimeters dilated. She apparently was given betamethasone on April 15 and April 16. She also apparently was treated with magnesium for some period of time as well. She does feel baby moving.. Patient was evaluated on presentation and found to be grossly ruptured. Cervix is 5 cm to 5-1/2 cm dilated and is stable over 45 minutes. The monitor shows no contractions and shows a normal heart rate pattern. Patient is afebrile. I have discussed the plan for stabilization with IV magnesium IV antibiotics oral antibiotics and IM steroids and plan for transfer to the have access to a NICU for her baby which likely would deliver in the short-term. Patient understands and agrees. I have discussed this patient's status with Dr. Lee at [facility] except the patient and transfer. Allergies are to amoxicillin which causes a rash Medications are none Past medical history, past surgical history, obstetric history, family history, and social histories are per the antepartum record. HEENT exam is normal Neck is supple with no lymphadenopathy or thyromegaly Abdomen is gravid soft nontender nondistended Extremities show no clubbing or cyanosis. There is no Homans sign pelvic exam per the labor and delivery nurse shows a cervix 5-5-1/2 cm dilated on presentation. Gross rupture membranes. Nitrazine positive. Vertex presentation. Recheck of the cervix after approximately 45 minutes shows no change. monitor shows no contractions monitor shows normal heart rate pattern with accelerations and no decelerations and better than average variability Lab work is pending including CBC and a UA and UDS Assessment and plan 33-5/7 weeks' gestation in patient with P PROM - Dr. Lee has agreed to accept this patient in transfer. She will be shipped via ground ambulance to [facility]. Patient has been started on IV magnesium with a 4 g bolus and then we'll run it 2 g an hour, she has a CBC pending she has a UDS pending she has a UA pending, she has been started on Ancef 2 g IV for empiric coverage. And a Escobar catheter has been placed. she has also been given an oral dose of azithromycin 500 mg and an IM dose of betamethasone [address] Brand is aware of this patient and agrees with her transfer as well. PPROM at 33-5/7 weeks' gestation Allergies and Home Medications Allergies Coded Allergies: amoxicillin (Unverified Allergy, Mild, rash, 09/20/16) pertussis vaccine,adsorbed (Unverified Allergy, Unknown, 10/14/15) Home Medications No Active Prescriptions or Reported Meds JOSEFA SAXENA MD Apr 29, 2017 10:21 pm
[2017-04-29 22:27] LABS: ALANINE AMINOTRANSFERASE 12 U/L (0-55); ALBUMIN 3.2 GM/DL (3.2-4.5); ANION GAP 13 MMOL/L (5-14); ASPARTATE AMINO TRANSFERASE 15 U/L (5-34); BILIRUBIN,TOTAL 0.3 MG/DL (0.1-1.0); BLOOD UREA NITROGEN 9 MG/DL (7-18); BUN/CREATININE RATIO 16; CALCIUM 8.9 MG/DL (8.5-10.1); CARBON DIOXIDE 16 MMOL/L (21-32); CHLORIDE 108 MMOL/L (98-107); CREATININE SERUM 0.55 MG/DL (0.60-1.30); GFR ESTIMATED > 60; GLUCOSE 108 MG/DL (70-105); POTASSIUM 3.6 MMOL/L (3.6-5.0); SODIUM 137 MMOL/L (135-145); TOTAL PROTEIN 5.7 GM/DL (6.4-8.2)
[2017-04-29 22:27] LABS: BILIRUBIN,URINE NEGATIVE (NEGATIVE); KETONES,URINE NEGATIVE (NEGATIVE); LEUKOCYTE ESTERASE ,URINE NEGATIVE (NEGATIVE); NITRITE,URINE NEGATIVE (NEGATIVE); PH,URINE 6.5 (5-9); PROTEIN,URINE NEGATIVE (NEGATIVE); UROBILINOGEN,URINE NORMAL (NORMAL)
[2017-04-29 22:30] VITALS: BP 109/58
[2017-04-30] MEDS ORDERED: BETAMETHASONE ACE/NA PHOS 6 MG/ML (CELESTONE SOLUSPAN) IM SCH (02:00)
[2017-04-30] MEDS ORDERED: MAGNESIUM 4 GM/100 ML IVPB 100 ML IV ONE (02:00)
[2017-04-30] MEDS ORDERED: AZITHROMYCIN 250 MG TAB (ZITHROMAX) PO ONE (02:00)
[2017-04-30] MEDS ORDERED: ceFAZolin 2 GM/50 ML NS 50 ML IV ONE (02:00)
[2017-04-30] MEDS ORDERED: MAGNESIUM SULFATE DRIP 500 ML IV SCH (02:00)
[2017-04-30] MEDS ORDERED: D5 LR IV SOLUTION 1,000 ML IV SCH (02:15)
[2017-04-30] MEDS ORDERED: INFLUENZA TRIvalent 2017-2018 0.5 ML/45 MCG SYR IM ONE (07:00)
== END 2017-04-29 22:57 | disposition short-term general hospital (02) ==
LOC: WSo 20:50 → LDRP 20:50 → WSo 22:57
PROVIDERS: ATTEND Obstetrics & Gynecology
DX: O42.913 Preterm premature rupture of membranes, unspecified as to length of time between rupture and onset of labor, third trimester (principal); Z3A.33 33 weeks gestation of pregnancy
CPT/HCPCS: 36415; 80053; 80306; 81000; 85025

== ENCOUNTER 2017-05-28 16:20 | Observation (INO) | payer MEDICAID ==
[~2017-05-28 16:20] MED LIST changes: +ACHD5005 PO; -HYDR-3812 PO
[2017-05-28] MEDS ORDERED: ACET325T38 PO (17:12)
[2017-05-28] MEDS ORDERED: VENlafaxine XR 75 MG (EFFEXOR XR) CAP PO NR (18:00)
[2017-05-28 19:20] VITALS: BP 121/73
[2017-05-29 04:00] VITALS: BP 117/75
[2017-05-29] MEDS ORDERED: VENL75CA PO (09:15)
--- OUTSIDE RECORDS SUMMARY | 2017-05-29 11:37 | XMS REPORT | Continuity of Care Document ---
Author Author [facility] Address Unknown Phone Unavailable Allergies Active Description Code Type Severity Reaction Onset Reported/Identified Relationship to Patient Clinical Status Yes pertussis, acellular Drug Allergy 05/25/2011 Yes pertussis vaccine,adsorbed [id number] Drug Allergy Unknown N/A 2015 Yes amoxicillin [id number] Drug Allergy Mild rash 09/20/2016 Medications There is no data. Problems Date Dx Coded Attending Type Code Diagnosis Diagnosed By 04/10/2010 726.90 ENTHESOPATHY OF UNSPECIFIED SITE 04/10/2010 726.90 ENTHESOPATHY OF UNSPECIFIED SITE 04/10/2010 726.90 ENTHESOPATHY OF UNSPECIFIED SITE 04/10/2010 AUDREY RITTER APRN 726.90 ENTHESOPATHY OF UNSPECIFIED SITE 04/10/2010 726.90 ENTHESOPATHY OF UNSPECIFIED SITE 05/14/2010 Ot 462 ACUTE PHARYNGITIS 06/13/2010 V05.8 GARDASIL 06/13/2010 V05.8 GARDASIL 06/13/2010 V05.8 GARDASIL 06/13/2010 AUDREY RITTER APRN V05.8 GARDASIL 06/13/2010 V05.8 GARDASIL 05/25/2011 078.19 WARTS, COMMON 05/25/2011 078.19 WARTS, COMMON 05/25/2011 078.19 WARTS, COMMON 05/25/2011 AUDREY RITTER APRN 078.19 WARTS, COMMON 05/25/2011 078.19 WARTS, COMMON 04/17/2012 V25.09 CONTRACEPTIVE COUNSELING - GENERAL 04/17/2012 V25.09 CONTRACEPTIVE COUNSELING - GENERAL 04/17/2012 V25.09 CONTRACEPTIVE COUNSELING - GENERAL 04/17/2012 AUDREY RITTER APRN V25.09 CONTRACEPTIVE COUNSELING - GENERAL 04/17/2012 V25.09 CONTRACEPTIVE COUNSELING - GENERAL 07/02/2012 V25.49 CONTRACEPTION SURVEILLANCE (REPEAT RX) 07/02/2012 V25.49 CONTRACEPTION SURVEILLANCE (REPEAT RX) 07/02/2012 V25.49 CONTRACEPTION SURVEILLANCE (REPEAT RX) 07/02/2012 ANGIE RITTER APRNIDI Rober V25.49 CONTRACEPTION SURVEILLANCE (REPEAT RX) 04/20/2013 ANGIE RITTER APRNIDI Rober 611.71 MASTODYNIA 04/20/2013 ANGIE RITTER APRNIDI Rober 611.72 LUMP OR MASS IN BREAST 04/20/2013 ANGIE RITTER APRNIDI Rober V25.9 CONTRACEPTION MANAGEMENT 04/20/2013 ANGIE RITTER APRNIDI Rober V74.5 STD SCREEN 10/16/2015 SCOOTER STANTON MD Ot F17.210 NICOTINE DEPENDENCE, CIGARETTES, UNCOMPL 10/16/2015 SCOOTER STANTON MD, Ot O32.6XX0 MATERNAL CARE FOR COMPOUND PRESENTATION, 10/16/2015 SCOOTER STANTON MD Ot O70.0 FIRST DEGREE PERINEAL LACERATION DURING 10/16/2015 SCOOTER STANTON MD Ot O71.82 OTHER SPECIFIED TRAUMA TO PERINEUM AND V 10/16/2015 SCOOTER STANTON MD Ot O76 ABNLT IN HEART RATE AND RHYTHM COM 10/16/2015 SCOOTER STANTON MD Ot O99.334 SMOKING (TOBACCO) COMPLICATING CHILDBIRT 10/16/2015 SCOOTER STANTON MD Ot O99.344 OTHER MENTAL DISORDERS COMPLICATING CHIL 10/16/2015 SCOOTER STANTON MD Ot Z37.0 SINGLE LIVE 10/16/2015 SCOOTER STANTON MD Ot Z3A.39 39 WEEKS GESTATION OF 07/26/2016 MILADY NG FOUR SLIDE MACHINE SETTER Ot N63 UNSPECIFIED LUMP IN BREAST 07/27/2016 MILADY NG FOUR SLIDE MACHINE SETTER Ot N63 UNSPECIFIED LUMP IN BREAST 08/02/2016 MILADY NG FOUR SLIDE MACHINE SETTER Ot N63 UNSPECIFIED LUMP IN BREAST 08/02/2016 MILADY NG FOUR SLIDE MACHINE SETTER Ot N63 UNSPECIFIED LUMP IN BREAST 08/02/2016 MILADY NG FOUR SLIDE MACHINE SETTER Ot Z80.3 FAMILY HISTORY OF MALIGNANT NEOPLASM OF 08/03/2016 MILADY NG FOUR SLIDE MACHINE SETTER Ot N63 UNSPECIFIED LUMP IN BREAST 08/03/2016 MILADY NG L FOUR SLIDE MACHINE SETTER Ot Z80.3 FAMILY HISTORY OF MALIGNANT NEOPLASM OF 08/08/2016 CHARLES NGCY L FOUR SLIDE MACHINE SETTER Ot N63 UNSPECIFIED LUMP IN BREAST 08/08/2016 CHARLES NGCY L FOUR SLIDE MACHINE SETTER Ot Z80.3 FAMILY HISTORY OF MALIGNANT NEOPLASM OF 08/09/2016 MILADY NG L FOUR SLIDE MACHINE SETTER Ot N63 UNSPECIFIED LUMP IN BREAST 08/16/2016 CHARLES NGCY L FOUR SLIDE MACHINE SETTER Ot N63 UNSPECIFIED LUMP IN BREAST 08/16/2016 MILADY NG L FOUR SLIDE MACHINE SETTER Ot Z80.3 FAMILY HISTORY OF MALIGNANT NEOPLASM OF 09/17/2016 VANDANA SALAZAR MD, Ot N63 UNSPECIFIED LUMP IN BREAST 09/17/2016 VANDANA SALAZAR MD, Ot Z01.812 ENCOUNTER FOR PREPROCEDURAL LABORATORY E 09/17/2016 VANDANA SALAZAR MD, Ot Z11.2 ENCOUNTER FOR SCREENING FOR OTHER BACTER 09/20/2016 VANDANA SALAZAR MD, Ot N60.91 UNSPECIFIED BENIGN MAMMARY DYSPLASIA OF 09/20/2016 VANDANA SALAZAR MD, Ot Z80.3 FAMILY HISTORY OF MALIGNANT NEOPLASM OF 09/20/2016 VANDANA SALAZAR MD, Ot Z87.891 PERSONAL HISTORY OF NICOTINE DEPENDENCE 09/24/2016 VANDANA SALAZAR MD, Ot N60.91 UNSPECIFIED BENIGN MAMMARY DYSPLASIA OF 09/24/2016 VANDANA SALAZAR MD, Ot Z80.3 FAMILY HISTORY OF MALIGNANT NEOPLASM OF 09/24/2016 VANDANA SALAZAR MD, Ot Z87.891 PERSONAL HISTORY OF NICOTINE DEPENDENCE 10/16/2016 ERNESTO TORRES MD Ot O20.0 THREATENED 10/16/2016 ERNESTO TORRES MD Ot Z3A.01 LESS THAN 8 WEEKS GESTATION OF 01/23/2017 MILADY NG FOUR SLIDE MACHINE SETTER Ot N63 UNSPECIFIED LUMP IN BREAST 01/23/2017 MILADY NG FOUR SLIDE MACHINE SETTER Ot N63 UNSPECIFIED LUMP IN BREAST 01/23/2017 MILADY NG FOUR SLIDE MACHINE SETTER Ot Z80.3 FAMILY HISTORY OF MALIGNANT NEOPLASM OF 02/07/2017 PARUL HUDSON DO Ot Z36 ENCOUNTER FOR SCREENING OF MOT 02/07/2017 PARUL HUDSON DO Ot Z3A.20 20 WEEKS GESTATION OF 02/12/2017 PARUL HUDSON DO Ot W10.9XXA FALL (ON) (FROM) UNSPECIFIED STAIRS AND 02/12/2017 PARUL HUDSON DO Ot Y92.[address] IN SINGLE-FAMILY (PRIVATE) KATIE 02/12/2017 PARUL HUDSON DO Ot Z33.1 STATE, INCIDENTAL 03/06/2017 PARUL HUDSON DO Ot W10.9XXA FALL (ON) (FROM) UNSPECIFIED STAIRS AND 03/06/2017 PARUL HUDSON DO Ot Y92.[address] IN SINGLE-FAMILY (PRIVATE) KATIE 03/06/2017 PARUL HUDSON DO Ot Z33.1 STATE, INCIDENTAL 03/14/2017 DANIEL BRITT MD Ot O99.89 OTH DISEASES AND CONDITIONS COMPL PREG/C 03/14/2017 DANIEL BRITT MD Ot R55 SYNCOPE AND COLLAPSE 04/15/2017 PARUL HUDSON DO Ot O60.03 LABOR WITHOUT DELIVERY, THIRD TR 04/15/2017 PARUL HUDSON DO Ot Z3A.31 31 WEEKS GESTATION OF 04/29/2017 JOSEFA SAXENA MD, Ot O42.913 PRETRM PADMINI ROM, UNSP TIME BETW RUPT AND 04/29/2017 JOSEFA SAXENA MD, Ot Z3A.33 33 WEEKS GESTATION OF Procedures Code Description [place] [address] THERAPUTIC INJ SQ/IM 04/17/2012 J1055 DEPO-PROVERA INJ 150 MG 04/17/2012 81636 URINE TEST (IN- HOUSE) 04/17/2012 45384 URINE TEST (IN- HOUSE) 07/02/2012 J1055 DEPO-PROVERA INJ 150 MG 07/02/2012 78845 THERAPUTIC INJ SQ/IM 07/02/2012 19954 THERAPUTIC INJ SQ/IM 09/29/2012 J1050 DEPO PROVERA 09/29/2012 20330 URINE TEST (IN- HOUSE) 09/29/2012 01984 URINE TEST (IN- HOUSE) 12/29/2012 J1050 DEPO PROVERA 12/29/2012 03818 GC/CHLAM URINE (STATE) 04/20/2013 79447 URINE TEST (IN- HOUSE) 04/20/2013 J1050 DEPO PROVERA 04/20/2013 69112 THERAPUTIC INJ SQ/IM 04/20/2013 [id number] INTRODUCE OTH THERAP SUBST IN PERIPH VEI 10/14/2015 [id number] REPAIR PERINEUM SKIN, EXTERNAL APPROACH 10/15/2015 [id number] REPAIR VULVA, EXTERNAL APPROACH 10/15/2015 [id number] DELIVERY OF PRODUCTS OF CONCEPTION, EXTE 10/15/2015 Results Test Result Range Methicillin resistant Staphylococcus aureus (MRSA) screening culture - 15:00 Methicillin resistant Staphylococcus aureus (MRSA) screening culture NEG NRG Urine beta human chorionic gonadotropin (hCG) measurement - 09/17/16 15:01 Urine beta human chorionic gonadotropin (hCG) measurement NEGATIVE NEGATIVE Complete urinalysis with reflex to culture - 10/16/16 15:03 Urine color determination YELLOW NRG Urine clarity determination CLEAR NRG Urine pH measurement by test strip 6.5 5-9 Specific gravity of urine by test strip 1.015 1.016- 1.022 Urine protein assay by test strip, semi-quantitative NEGATIVE NEGATIVE Urine glucose detection by automated test strip NEGATIVE NEGATIVE Erythrocytes detection in urine sediment by light microscopy 5+ NEGATIVE Urine ketones detection by automated test strip NEGATIVE NEGATIVE Urine nitrite detection by test strip NEGATIVE NEGATIVE Urine total bilirubin detection by test strip NEGATIVE NEGATIVE Urine urobilinogen measurement by automated test strip (mass/volume) NORMAL NORMAL Urine leukocyte esterase detection by dipstick 1+ NEGATIVE Automated urine sediment erythrocyte count by microscopy (number/high power field) [HPF] NRG Automated urine sediment leukocyte count by microscopy (number/high power field ) [HPF] NRG Bacteria detection in urine sediment by light microscopy TRACE NRG Squamous epithelial cells detection in urine sediment by light microscopy 10-25 NRG Crystals detection in urine sediment by light microscopy NONE NRG Casts detection in urine sediment by light microscopy NONE NRG Mucus detection in urine sediment by light microscopy NEGATIVE NRG Complete urinalysis with reflex to culture NO NRG Automated blood complete blood count (hemogram) panel - 10/16/16 15:19 Blood leukocytes automated count (number/volume) 7.7 10*3/uL 4.3-11.0 Blood erythrocytes automated count (number/volume) 5.06 10*6/uL 4.35-5.85 Venous blood hemoglobin measurement (mass/volume) 14.1 g/dL 11.5-16.0 Blood hematocrit (volume fraction) 41 % 35-52 Automated erythrocyte mean corpuscular volume 81 [foz_us] 80-99 Automated erythrocyte mean corpuscular hemoglobin (mass per erythrocyte) 28 pg 25-34 Automated erythrocyte mean corpuscular hemoglobin concentration measurement ( mass/volume) 35 g/dL 32-36 Automated erythrocyte distribution width ratio 13.0 % 10.0-14.5 Automated blood platelet count (count/volume) 263 10*3/uL 130-400 Automated blood platelet mean volume measurement 9.5 [foz_us] 7.4-10.4 Serum or plasma choriogonadotropin measurement (units/volume) - 10/16/16 15:19 Serum or plasma choriogonadotropin measurement (units/volume) 33978 m[iU]/mL <5 Complete urinalysis with reflex to culture - 02/12/17 11:00 Urine color determination YELLOW NRG Urine clarity determination CLEAR NRG Urine pH measurement by test strip 7 5-9 Specific gravity of urine by test strip 1.010 1.016- 1.022 Urine protein assay by test strip, semi-quantitative NEGATIVE NEGATIVE Urine glucose detection by automated test strip 1+ NEGATIVE Erythrocytes detection in urine sediment by light microscopy NEGATIVE NEGATIVE Urine ketones detection by automated test strip NEGATIVE NEGATIVE Urine nitrite detection by test strip NEGATIVE NEGATIVE Urine total bilirubin detection by test strip NEGATIVE NEGATIVE Urine urobilinogen measurement by automated test strip (mass/volume) NORMAL NORMAL Urine leukocyte esterase detection by dipstick 1+ NEGATIVE Automated urine sediment erythrocyte count by microscopy (number/high power field) NONE NRG Automated urine sediment leukocyte count by microscopy (number/high power field ) RARE NRG Bacteria detection in urine sediment by light microscopy NEGATIVE NRG Squamous epithelial cells detection in urine sediment by light microscopy 10-25 NRG Crystals detection in urine sediment by light microscopy NONE NRG Casts detection in urine sediment by light microscopy NONE NRG Mucus detection in urine sediment by light microscopy NEGATIVE NRG Complete urinalysis with reflex to culture NO NRG Bacterial urine culture - 02/12/17 11:00 URINE CULTURE RESULTS <10,000/ML NRG Magnesium - 04/15/17 16:00 Magnesium 2.3 mg/dL 1.8-2.4 Complete blood count (CBC) with automated white blood cell (WBC) differential - 04/29/17 21:20 Blood leukocytes automated count (number/volume) 11.2 10*3/uL 4.3-11.0 Blood erythrocytes automated count (number/volume) 4.25 10*6/uL 4.35-5.85 Venous blood hemoglobin measurement (mass/volume) 12.1 g/dL 11.5-16.0 Blood hematocrit (volume fraction) 35 % 35-52 Automated erythrocyte mean corpuscular volume 82 [foz_us] 80-99 Automated erythrocyte mean corpuscular hemoglobin (mass per erythrocyte) 29 pg 25-34 Automated erythrocyte mean corpuscular hemoglobin concentration measurement ( mass/volume) 35 g/dL 32-36 Automated erythrocyte distribution width ratio 13.6 % 10.0-14.5 Automated blood platelet count (count/volume) 203 10*3/uL 130-400 Automated blood platelet mean volume measurement 9.9 [foz_us] 7.4-10.4 Automated blood neutrophils/100 leukocytes 69 % 42-75 Automated blood lymphocytes/100 leukocytes 21 % 12-44 Blood monocytes/100 leukocytes 9 % 0-12 Automated blood eosinophils/100 leukocytes 1 % 0-10 Automated blood basophils/100 leukocytes 0 % 0-10 Blood neutrophils automated count (number/volume) 7.7 10*3 1.8-7.8 Blood lymphocytes automated count (number/volume) 2.4 10*3 1.0-4.0 Blood monocytes automated count (number/volume) 1.0 10*3 0.0-1.0 Automated eosinophil count 0.1 10*3/uL 0.0-0.3 Automated blood basophil count (count/volume) 0.0 10*3/uL 0.0-0.1 [id number] - 04/29/17 21:20 [id number] SPECIMEN AVAILABLE [facility] Comprehensive metabolic panel - 04/29/17 21:20 Serum or plasma sodium measurement (moles/volume) 137 mmol/L 135-145 Serum or plasma potassium measurement (moles/volume) 3.6 mmol/L 3.6-5.0 Serum or plasma chloride measurement (moles/volume) 108 mmol/L 98-107 Carbon dioxide 16 mmol/L 21-32 Serum or plasma anion gap determination (moles/volume) 13 mmol/L 5-14 Serum or plasma urea nitrogen measurement (mass/volume) 9 mg/dL 7-18 Serum or plasma creatinine measurement (mass/volume) 0.55 mg/dL 0.60-1.30 Serum or plasma urea nitrogen/creatinine mass ratio 16 NRG Serum or plasma creatinine measurement with calculation of estimated glomerular filtration rate > NRG Serum or plasma glucose measurement (mass/volume) 108 mg/dL 70-105 Serum or plasma calcium measurement (mass/volume) 8.9 mg/dL 8.5-10.1 Serum or plasma total bilirubin measurement (mass/volume) 0.3 mg/dL 0.1-1.0 Serum or plasma alkaline phosphatase measurement (enzymatic activity/volume) 107 U/L 40-136 Serum or plasma aspartate aminotransferase measurement (enzymatic activity/ volume) 15 U/L 5-34 Serum or plasma alanine aminotransferase measurement (enzymatic activity/volume ) 12 U/L 0-55 Serum or plasma protein measurement (mass/volume) 5.7 g/dL 6.4-8.2 Serum or plasma albumin measurement (mass/volume) 3.2 g/dL 3.2-4.5 Complete urinalysis with reflex to culture - 04/29/17 22:20 Urine color determination YELLOW NRG Urine clarity determination CLEAR NRG Urine pH measurement by test strip 6.5 5-9 Specific gravity of urine by test strip 1.020 1.016- 1.022 Urine protein assay by test strip, semi-quantitative NEGATIVE NEGATIVE Urine glucose detection by automated test strip NEGATIVE NEGATIVE Erythrocytes detection in urine sediment by light microscopy 1+ NEGATIVE Urine ketones detection by automated test strip NEGATIVE NEGATIVE Urine nitrite detection by test strip NEGATIVE NEGATIVE Urine total bilirubin detection by test strip NEGATIVE NEGATIVE Urine urobilinogen measurement by automated test strip (mass/volume) NORMAL NORMAL Urine leukocyte esterase detection by dipstick NEGATIVE NEGATIVE Automated urine sediment erythrocyte count by microscopy (number/high power field) [HPF] NRG Automated urine sediment leukocyte count by microscopy (number/high power field ) NONE NRG Bacteria detection in urine sediment by light microscopy NONE NRG Crystals detection in urine sediment by light microscopy PRESENT NRG Casts detection in urine sediment by light microscopy NONE NRG Mucus detection in urine sediment by light microscopy NEGATIVE NRG Complete urinalysis with reflex to culture NO NRG Amorphous sediment detection in urine sediment by light microscopy FEW NAVEEN URATES NRG Urine drug screening test - 04/29/17 22:20 Urine phencyclidine detection by screening method NEGATIVE NEGATIVE Urine benzodiazepines detection by screening method NEGATIVE NEGATIVE Urine cocaine detection NEGATIVE NEGATIVE Urine amphetamines detection by screening method NEGATIVE NEGATIVE Urine methamphetamine detection by screening method NEGATIVE NEGATIVE Urine cannabinoids detection by screening method NEGATIVE NEGATIVE Urine opiates detection by screening method NEGATIVE NEGATIVE Urine barbiturates detection NEGATIVE NEGATIVE Screening urine tricyclic antidepressants detection NEGATIVE NEGATIVE Urine methadone detection by screening method NEGATIVE NEGATIVE Urine oxycodone detection NEGATIVE NEGATIVE Urine propoxyphene detection NEGATIVE NEGATIVE Encounters ACCT No. Visit Date/Time Discharge Status Pt. Type Provider Facility Loc./Unit Complaint [id number] 04/20/2013 17:28:00 04/20/2013 23:59:59 CLS Outpatient AUDREY RITTER APRN [id number] 07/02/2012 12:00:00 07/02/2012 23:59:59 CLS Outpatient [id number] 04/17/2012 14:54:00 04/17/2012 23:59:59 CLS Outpatient [id number] 12/29/2012 16:29:00 Document Registration [id number] 09/29/2012 12:52:00 Document Registration [id number] 04/29/2017 20:50:00 04/29/2017 22:57:00 DIS Outpatient HEMANTH AVALOS, JOSEFA Mak [facility] WSo LEAKING FLUID [id number] 04/15/2017 12:05:00 04/15/2017 16:42:00 DIS Inpatient PARUL HUDSON DO [facility] LDRP LABOR 31 WEEKS [id number] 02/25/2017 12:35:00 02/25/2017 23:59:59 CLS Outpatient LORENZA AVALOS, DANIEL Linda [facility] CARD SYNCOPE R55, Z33.1 [id number] 02/12/2017 09:50:00 02/12/2017 11:35:00 DIS Outpatient PARUL HUDSON DO [facility] WSo FELL AT HOME [id number] 01/23/2017 13:02:00 01/23/2017 23:59:59 CLS Outpatient TRISTAN WATERS PARUL Adalgisa [facility] RAD ANATOMY SCAN [id number] 10/16/2016 14:58:00 10/16/2016 17:42:00 DIS Emergency BRIAN AVALOS, ERNESTO Edgar [facility] ER CRAMPING/BLEEDING DURING [id number] 09/20/2016 08:45:00 09/20/2016 13:00:00 DIS Outpatient VANDANA SALAZAR MD [facility] RIGHT BREAST MASS [id number] 09/17/2016 14:49:00 09/17/2016 15:05:00 DIS Outpatient VANDANA SALAZAR MD [facility] PREOP RIGHT BREAST MASS [id number] 08/02/2016 15:06:00 08/02/2016 23:59:59 CLS Outpatient MILADY NG [facility] RAD RT BREAST LUMP, FAM HX BREAST CA [id number] 07/25/2016 13:50:00 07/25/2016 23:59:59 CLS Outpatient MILADY NG [facility] RAD MASS OF RIGHT BREAST [id number] 10/14/2015 07:14:00 10/16/2015 11:10:00 DIS Inpatient SCOOTER STANTON MD [facility] LDRP LABOR INDUCTION [id number] 05/14/2010 11:15:00 Document Registration
== END 2017-05-29 09:14 | disposition home or self-care (01) ==
LOC: LDRP 16:20
PROVIDERS: ADMIT Obstetrics & Gynecology; ATTEND Obstetrics & Gynecology
DX: F53 Mental and behavioral disorders associated with the puerperium, not elsewhere classified (principal)
CPT/HCPCS: 99211; G0378

== ENCOUNTER 2018-06-30 03:16 | Emergency (ER) | payer MEDICAID ==
[~2018-06-30] VITALS: Ht 165.1 cm; Wt 79.4 kg
[~2018-06-30 03:16] MED LIST changes: +ACET325T38 PO; +VENL75CA PO
--- NOTE | 2018-06-30 03:33 | NUR ---
pt refused straight cath.
[2018-06-30 03:42] LABS: BILIRUBIN,URINE NEGATIVE (NEGATIVE); CLARITY,URINE SLIGHTLY CLOUDY; COLOR,URINE YELLOW; GLUCOSE, URINE (UA) NEGATIVE (NEGATIVE); KETONES,URINE NEGATIVE (NEGATIVE); LEUKOCYTE ESTERASE ,URINE 2+ (NEGATIVE); NITRITE,URINE NEGATIVE (NEGATIVE); PH,URINE 8 (5-9); PROTEIN,URINE 1+ (NEGATIVE); UROBILINOGEN,URINE NORMAL (NORMAL)
[2018-06-30 03:57] LABS: BACTERIA,URINE MODERATE /HPF
[2018-06-30] MEDS ORDERED: NS IV 1000 ML 1,000 ML IV ONE (04:14)
[2018-06-30] MEDS ORDERED: ONDANSETRON 4 MG/2 ML (SDV) Z0FRAN IVP ONE (04:15)
[2018-06-30 04:26] LABS: BASOPHILS % (AUTO) 0 % (0-10); EOSINOPHILS % (AUTO) 0 % (0-10); HEMATOCRIT 39 % (35-52); HEMOGLOBIN 13.6 G/DL (11.5-16.0); LYMPHOCYTES # (AUTO) 1.3 X 10^3 (1.0-4.0); LYMPHOCYTES % (AUTO) 10 % (12-44); MEAN CORPUSCULAR HEMOGLOBIN 28 PG (25-34); MEAN CORPUSCULAR HGB CONC 35 G/DL (32-36); MEAN CORPUSCULAR VOLUME 80 FL (80-99); MEAN PLATELET VOLUME 9.4 FL (7.4-10.4); MONOCYTES # (AUTO) 0.9 X 10^3 (0.0-1.0); MONOCYTES % (AUTO) 7 % (0-12); NEUTROPHILS # (AUTO) 10.5 X 10^3 (1.8-7.8); NEUTROPHILS % (AUTO) 82 % (42-75); PLATELET COUNT 225 10^3/uL (130-400); RED CELL DISTRIBUTION WIDTH 13.2 % (10.0-14.5); WHITE BLOOD COUNT 12.7 10^3/uL (4.3-11.0)
--- NOTE | 2018-06-30 04:32 | ED General ---
General Chief Complaint: -Female Stated Complaint: VAGINAL BLEEDING,POSS Nursing Triage Note: pt presents to ed with complaints of lower abdominal cramping starting 1 hr ago and spotting and vomiting starting yesterday. pt lmp was 04/03/18. pt has had positive preg test at home but has not seen her ob yet. Nursing Sepsis Screen: No Definite Risk Source of Information: Patient Exam Limitations: Other (PT CHANGES STORY DURING COURSE OF HISTORY AND DURING ER STAY--BECOMES MORE ELABORATE WITH TIME) History of Present Illness Date Seen by Provider: Jun 30, 2018 Time Seen by Provider: 03:24 Initial Comments PT ARRIVES VIA POV FROM HOME INITIALLY PRESENTED STATING SHE WAS HAVING VAGINAL BLEEDING AND "THOUGHT SHE MIGHT BE " AND NO HOME TEST STORY THEN CHANGES TO : KNOWN LMP OF 04/03/18 AND HAD POSITIVE HOME TEST THE FIRST PART OF APRIL, AND HAS FIRST OB APPOINTMENT WITH DR. HUDSON THIS Saturday07/02/18 PT INITIALLY STATED SHE WAS HAVING ALOT OF BLEEDING, THEN STATES "I'M NOT REALLY EVEN BLEEDING--JUST A LITTLE SPOTTING" --STATES BLOOD ON TISSUE WITH WIPING, AND HAS NOT USED A FULL PANTY LINER STATES SPOTTING BEGAN AT 1700 YESTERDAY AFTERNOON STATES SHE BEGAN HAVING LOWER ABDOMINAL CRAMPING 2 HOURS AGO PT LATER STATES SHE IS "PUKING BLOOD" "ALL DAY" --THEN STATES IT ALSO BEGAN AT 1700 CLAIMS SHE HAS VOMITED "TOO MANY TIMES TO COUNT" AND WHEN ASKED HOW MUCH BLOOD SHE WAS VOMITING, SHE COULD NOT STATE. ON FURTHER QUESTIONING TO WHETHER IT WAS FLECKS OR SMALL SPECKS OF BLOOD OR CLOTS --SHE STATES SHE DID NOT UNDERSTAND WHAT "FLECKS OR SPECKS" OF BLOOD WAS, AND THEN I DIRECTLY ASKED HER IF SHE WAS THROWING UP CLOTS, AND HAD TO EXPLAIN WHAT CLOTS WERE, AND SHE STATED SHE WAS THROWING UP CLOTS. NO UPPER ABDOMINAL PAIN NO DIARRHEA NO PAIN ON URINATION AND IS VOIDING FREQUENTLY ON DIRECT QUESTIONING IF SHE HAS HAD FEVER, SHE STATES "YES" AND WHEN ASKED HOW HIGH, SHE REPORTS "102" THEN ASKED HER IF SHE TOOK ANYTHING FOR HER FEVER, SHE CLAIMS SHE TOOK TYLENOL AT 2000 TONIGHT FOR THIS FEVER--PT DOES NOT VOLUNTEER ANY OF THIS INFORMATION/DID NOT MENTION ANY OF IT UNTIL DIRECTLY QUESTIONED DURING REVIEW OF SYSTEMS. PT CLAIMS SHE IS AB 8 DELIVERED 04/2017. NO CONTROL PCP: ANA SECURITY FLEX UTILITY OFFICER: DR. HUDSON Allergies and Home Medications Allergies Coded Allergies: amoxicillin (Unverified Allergy, Mild, rash, 09/20/16) pertussis vaccine,adsorbed (Unverified Allergy, Unknown, 10/14/15) Home Medications Acetaminophen 325 Mg Tablet, 325 MG PO PRN, (Reported) Doxylamine/Pyridoxine HCl 1 Each Tablet.dr, 2 EACH PO HS Prescribed by: PATTI SHIPMAN on 06/30/18521 Nitrofurantoin Monohyd/M-Cryst 100 Mg Capsule, 100 MG PO BID Prescribed by: PATTI SHIPMAN on 06/30/18521 Sucralfate 1 Gm Tablet, 1 GM PO QIDACHS Prescribed by: PATTI SHIPMAN on 06/30/18521 Venlafaxine HCl 75 Mg Cap.er.24h, 75 MG PO DAILY Prescribed by: OLIMPIA PULLIAM on 05/29/17 0915 Patient Home Medication List Home Medication List Reviewed: Yes Review of Systems Review of Systems Constitutional: see HPI, fever Respiratory: No cough Cardiovascular: No chest pain Gastrointestinal: abdominal pain; No constipation, No diarrhea; hematemesis, nausea, vomiting Genitourinary: frequency : Yes LMP: Apr 03, 2018 Musculoskeletal: No back pain Psychiatric/Neurological: No Symptoms Reported Hematologic/Lymphatic: See HPI Past Wzgqdwm-Eqqztb-Yldgna Hx Patient Social History Alcohol Use: Occasionally Uses (IN PAST) Recreational Drug Use: No Smoking Status: Never a Smoker 2nd Hand Smoke Exposure: No Recent Foreign Travel: No Contact w/Someone Who Travel: No Recent Infectious Disease Expo: No Recent Hopitalizations: Yes (September TUMOR REMOVAL ON BREAST) Physical Abuse: No Sexual Abuse: No Mistreated: No Fear: No Immunizations Up To Date Tetanus Booster (TDap): More than 5yrs PED Vaccines UTD: No Seasonal Allergies Seasonal Allergies: No Past Medical History Surgeries: Yes (RIGHT BREAST BIOPSY) Breast Respiratory: No Cardiac: No Neurological: No : Yes Last Menstrual Period: Apr 03, 2018 Hx : 11 Hx Para: 2 Hx Total # of Abortions (Sp): 8 Reproductive Disorders: Yes Sexually Transmitted Disease: Yes (chlamydia 02/2015) HIV/AIDS: No Genitourinary: No Gastrointestinal: Yes Gastroesophageal Reflux Musculoskeletal: No Endocrine: No HEENT: No Cancer: No Psychosocial: Yes Anxiety, Depression Integumentary: No Blood Disorders: No Adverse Reaction/Blood Tranf: No Family Medical History Patient reports no known family medical history. Physical Exam Vital Signs Vital Signs - First Documented 06/30/18 03:26 Temp 97.8 Pulse 113 Resp 20 B/P (MAP) 110/73 (85) Pulse Ox 98 Capillary Refill : Less Than 3 Seconds Height, Weight, BMI Height: 5'5.00" Weight: 175lbs. 6.0oz. [id number]; 28.0 BMI Method:Stated General Appearance: No Apparent Distress, WD/WN, Other (SMILING, SITTING BURKINAN - STYLE DURING EXAM) HEENT: PERRL/EOMI Neck: Normal Inspection Respiratory: Normal Breath Sounds, No Accessory Muscle Use, No Respiratory Distress Cardiovascular: Regular Rate, Rhythm, No Edema, No JVD, No Murmur, Normal Peripheral Pulses Gastrointestinal: Normal Bowel Sounds, No Organomegaly, No Pulsatile Mass, Non Tender, Soft Genital/Rectal: Normal Genital Exam, Normal Vaginal Exam, Other (NO BLOOD IN VAGINAL CANAL OR FROM CERVIX--NO EVIDENCE OF ANY RECENT BLEEDING ) Extremity: Normal Range of Motion, No Pedal Edema Neurologic/Psychiatric: Alert, Oriented x3, No Motor/Sensory Deficits, Normal Mood/Affect, carousel attendant II-XII Norm as Tested Skin: Normal Color, Warm/Dry, Tattoos/Piercings (MULTIPLE TATTOOS) Progress/Results/Core Measures Suspected Sepsis Recent Fever Within 48 Hours: No Infection Criteria Present: None New/Unexplained Altered Menta: No Sepsis Screen: No Definite Risk SIRS Temperature:97.8 Pulse: 113 Respiratory Rate: 20 Laboratory Tests 06/30/18 04:08: White Blood Count 12.7H Blood Pressure 110 /73 Mean: 85 Laboratory Tests 06/30/18 04:08: Creatinine 0.65, INR Comment 1.1, Platelet Count 225, Total Bilirubin 0.8 Results/Orders Lab Results Laboratory Tests Test 06/30/18 03:36 06/30/18 03:39 06/30/18 04:08 Range/Units Urine Color YELLOW Urine Clarity SLIGHTLY CLOUDY Urine pH 8 5-9 Urine Specific [place] 1.010 L 1.016-1.022 Urine Protein 1+ H NEGATIVE Urine Glucose (UA) NEGATIVE NEGATIVE Urine Ketones NEGATIVE NEGATIVE Urine Nitrite NEGATIVE NEGATIVE Urine Bilirubin NEGATIVE NEGATIVE Urine Urobilinogen NORMAL NORMAL MG/DL Urine Leukocyte Esterase 2+ H NEGATIVE Urine RBC (Auto) 1+ H NEGATIVE Urine RBC NONE /HPF Urine WBC 2-5 /HPF Urine Squamous Epithelial Cells 10-25 H /HPF Urine Crystals NONE /LPF Urine Bacteria MODERATE H /HPF Urine Casts NONE /LPF Urine Mucus NEGATIVE /LPF Urine Culture Indicated YES Urine Opiates Screen NEGATIVE NEGATIVE Urine Oxycodone Screen NEGATIVE NEGATIVE Urine Methadone Screen NEGATIVE NEGATIVE Urine Propoxyphene Screen NEGATIVE NEGATIVE Urine Barbiturates Screen NEGATIVE NEGATIVE Ur Tricyclic Antidepressants Screen NEGATIVE NEGATIVE Urine Phencyclidine Screen NEGATIVE NEGATIVE Urine Amphetamines Screen NEGATIVE NEGATIVE Urine Methamphetamines Screen NEGATIVE NEGATIVE Urine Benzodiazepines Screen NEGATIVE NEGATIVE Urine Cocaine Screen NEGATIVE NEGATIVE Urine Cannabinoids Screen NEGATIVE NEGATIVE Urine Test POSITIVE NEGATIVE White Blood Count 12.7 H 4.3-11.0 10^3/uL Red Blood Count 4.84 4.35-5.85 10^6/uL Hemoglobin 13.6 11.5-16.0 G/DL Hematocrit 39 35-52 % Mean Corpuscular Volume 80 80-99 FL Mean Corpuscular Hemoglobin 28 25-34 PG Mean Corpuscular Hemoglobin Concent 35 32-36 G/DL Red Cell Distribution Width 13.2 10.0-14.5 % Platelet Count 225 130-400 10^3/uL Mean Platelet Volume 9.4 7.4-10.4 FL Neutrophils (%) (Auto) 82 H 42-75 % Lymphocytes (%) (Auto) 10 L 12-44 % Monocytes (%) (Auto) 7 0-12 % Eosinophils (%) (Auto) 0 0-10 % Basophils (%) (Auto) 0 0-10 % Neutrophils # (Auto) 10.5 H 1.8-7.8 X 10^3 Lymphocytes # (Auto) 1.3 1.0-4.0 X 10^3 Monocytes # (Auto) 0.9 0.0-1.0 X 10^3 Eosinophils # (Auto) 0.0 0.0-0.3 10^3/uL Basophils # (Auto) 0.0 0.0-0.1 10^3/uL Prothrombin Time 14.4 12.2-14.7 SEC INR Comment 1.1 0.8-1.4 Activated Partial Thromboplast Time 40 H 24-35 SEC Sodium Level 137 135-145 MMOL/L Potassium Level 3.9 3.6-5.0 MMOL/L Chloride Level 107 98-107 MMOL/L Carbon Dioxide Level 19 L 21-32 MMOL/L Anion Gap 11 5-14 MMOL/L Blood Urea Nitrogen 7 7-18 MG/DL Creatinine 0.65 0.60-1.30 MG/DL Estimat Glomerular Filtration Rate > 60 BUN/Creatinine Ratio 11 Glucose Level 108 H 70-105 MG/DL Calcium Level 8.8 8.5-10.1 MG/DL Corrected Calcium 8.8 8.5-10.1 MG/DL Magnesium Level 2.3 1.8-2.4 MG/DL Total Bilirubin 0.8 0.1-1.0 MG/DL Aspartate Amino Transf (AST/SGOT) 15 5-34 U/L Alanine Aminotransferase (ALT/SGPT) 14 0-55 U/L Alkaline Phosphatase 57 40-136 U/L Total Protein 6.3 L 6.4-8.2 GM/DL Albumin 4.0 3.2-4.5 GM/DL Amylase Level 47 25-125 U/L Lipase 20 8-78 U/L Human Chorionic Gonadotropin, Quant 85442 H <5 MIU/ML Acetaminophen Level < 10 L 10-30 UG/ML Serum Alcohol < 10 <10 MG/DL My Orders Orders - PATTI SHIPMAN DO Urine Bedside (06/30/18 03:24) Straight Cath For Spec.-Adult (06/30/18 03:24) Ua Culture If Indicated (06/30/18 03:24) Urine Culture (06/30/18 03:36) Hcg,Qualitative Urine (06/30/18 04:01) Cbc With Automated Diff (06/30/18 04:04) Hcg,Quantitative (06/30/18 04:04) Acetaminophen (06/30/18 04:14) Alcohol (06/30/18 04:14) Amylase (06/30/18 04:14) Comprehensive Metabolic Panel (06/30/18 04:14) Drug Screen Stat (Urine) (06/30/18 04:14) Lipase (06/30/18 04:14) Magnesium (06/30/18 04:14) Protime With Inr (06/30/18 04:14) Partial Thromboplastin Time (06/30/18 04:14) Ondansetron Injection (Zofran Injectio (06/30/18 04:15) Saline Lock/Iv-Start (06/30/18 04:14) Ns Iv 1000 Ml (Sodium Chloride 0.9%) (06/30/18 04:14) Medications Given in ED Current Medications Medications Dose Ordered Sig/Fouzia Route Start Time Stop Time Status Last Admin Dose Admin Ondansetron HCl 4 mg ONCE ONCE IVP 06/30/18 04:15 06/30/18 04:17 DC 06/30/18 04:24 4 MG Sodium Chloride 1,000 ml @ 0 mls/hr Q0M ONCE IV 06/30/18 04:14 06/30/18 04:17 DC 06/30/18 04:24 0 MLS/HR Vital Signs/I&O 06/30/18 03:26 Temp 97.8 Pulse 113 Resp 20 B/P (MAP) 110/73 (85) Pulse Ox 98 Capillary Refill : Less Than 3 Seconds Blood Pressure Mean: 85 Progress Note : Progress Note NO ULTRASOUND AVAILABLE HERE AT THIS TIME. PT HAD NO BLEEDING, NO NAUSEA OR VOMITING, OR ANY ABDOMINAL PAIN OR CRAMPING AND NO FEVER AT ANY TIME DURING ER STAY BLOOD TYPE IS A+ Departure Impression Primary Impression: Urinary tract infection Additional Impressions: Threatened in early Nausea and vomiting during prior to 22 weeks gestation REPORTED HEMATEMESIS Disposition: 01 HOME, SELF-CARE Condition: Stable Departure-Patient Inst. Referrals: PARUL HUDSON DO [facility] [place] Instructions: Avoiding Infections in , Bleeding With (DC), Nausea and Vomiting of (DC), Threatened Miscarriage ( DC), Urinary Tract Infection, Adult (DC) Add. Discharge Instructions: CLEAR LIQUIDS--WATER, BROTH, JELLO, GATORADE WHEN YOUR NAUSEA IS BETTER, ADD BRATS DIET TO CLEAR LIQUIDS--BANANAS, RICE, APPLESAUCE, TOAST, SALTINES FOLLOW UP WITH DR. HUDSON THIS WEEK SCHEDULED. All discharge instructions reviewed with patient and/or family. Voiced understanding. Scripts Sucralfate (Carafate) 1 Gm Tablet 1 GM PO QIDACHS, #60 TAB Prov: PATTI SHIPMAN DO 06/30/18 Doxylamine/Pyridoxine HCl (Nathalie Andrade 10-10 mg Tablet) 1 Each Tablet.dr 2 EACH PO HS, #14 TAB Prov: PATTI SHIPMAN DO 06/30/18 Nitrofurantoin Monohyd/M-Cryst (Macrobid 100 mg Capsule) 100 Mg Capsule 100 MG PO BID, #20 CAP Prov: PATTI SHIPMAN DO 06/30/18 PATTI SHIPMAN DO Jun 30, 2018 04:32
[2018-06-30 04:43] LABS: AMPHETAMINE SCREEN, URINE NEGATIVE (NEGATIVE); BARBITURATE SCREEN URINE NEGATIVE (NEGATIVE); BENZODIAZEPINES SCREEN URINE NEGATIVE (NEGATIVE); CANNABINOID SCREEN, URINE NEGATIVE (NEGATIVE); COCAINE SCREEN URINE NEGATIVE (NEGATIVE); METHADONE STAT NEGATIVE (NEGATIVE); METHAMPHETAMINE SCREEN URINE S NEGATIVE (NEGATIVE); OPIATE SCREEN URINE NEGATIVE (NEGATIVE); OXYCODONE STAT NEGATIVE (NEGATIVE); PROPOXYPHENE STAT NEGATIVE (NEGATIVE); TRICYCLIC ANTIDEPRESSANTS SCRE NEGATIVE (NEGATIVE)
[2018-06-30 04:47] LABS: ALANINE AMINOTRANSFERASE 14 U/L (0-55); ALKALINE PHOSPHATASE 57 U/L (40-136); AMYLASE 47 U/L (25-125); BILIRUBIN,TOTAL 0.8 MG/DL (0.1-1.0); BUN/CREATININE RATIO 11; CALCIUM 8.8 MG/DL (8.5-10.1); CARBON DIOXIDE 19 MMOL/L (21-32); CHLORIDE 107 MMOL/L (98-107); CREATININE SERUM 0.65 MG/DL (0.60-1.30); GFR ESTIMATED > 60; GLUCOSE 108 MG/DL (70-105); LIPASE 20 U/L (8-78); MAGNESIUM 2.3 MG/DL (1.8-2.4); POTASSIUM 3.9 MMOL/L (3.6-5.0); SODIUM 137 MMOL/L (135-145); TOTAL PROTEIN 6.3 GM/DL (6.4-8.2)
[2018-06-30 04:49] LABS: INR 1.1 (0.8-1.4); PROTHROMBIN TIME PATIENT 14.4 SEC (12.2-14.7)
[2018-06-30 04:52] LABS: ACETAMINOPHEN < 10 UG/ML (10-30)
[2018-06-30] MEDS ORDERED: DOXY1TAB3 PO ×2 (05:17→05:22)
[2018-06-30] MEDS ORDERED: NITR-65 PO ×2 (05:17→05:22)
[2018-06-30] MEDS ORDERED: SUCR1TAB36 PO ×2 (05:17→05:22)
[2018-06-30 05:25] VITALS: BP 102/69
== END 2018-06-30 05:25 | disposition home or self-care (01) ==
LOC: EDUNIT# 03:16 → ER 03:18
DX: O20.0 Threatened abortion (principal); O23.42 Unspecified infection of urinary tract in pregnancy, second trimester; O99.612 Diseases of the digestive system complicating pregnancy, second trimester; K21.9 Gastro-esophageal reflux disease without esophagitis; O99.342 Other mental disorders complicating pregnancy, second trimester; F41.9 Anxiety disorder, unspecified; F32.9 Major depressive disorder, single episode, unspecified; Z88.0 Allergy status to penicillin; Z88.7 Allergy status to serum and vaccine; Z98.890 Other specified postprocedural states; Z86.19 Personal history of other infectious and parasitic diseases; Z3A.22 22 weeks gestation of pregnancy
CPT/HCPCS: 36415; 80053; 80306; 80320; 80329; 81000; 82150; 83690; 83735; 84702; 84703; 85025; 85610; 85730; 87088

== ENCOUNTER → 2018-09-17 | Outpatient (CLI) | payer MEDICAID ==
[~2018-09-17] MED LIST changes: +DOXY1TAB3 PO; +NITR-65 PO; +SUCR1TAB36 PO
--- NOTE | 2018-09-17 17:20 | Diagnostic Imaging Report ---
INDICATION: Anatomical survey. TECHNIQUE: Multiple real-time grayscale images were obtained over the gravid uterus. COMPARISON: None. FINDINGS: Mckoy gestation is in cephalic position. The amniotic fluid volume appeared normal. The placenta is posterior. There is no abruption or previa. The measurements correlate with an age of 18 weeks 1 day. Heart rate is 158 beats per minute. The cervix is 4 cm, nondilated. No abnormality at the anatomical survey. Biometrical measurements are as follows: Biparietal 3.92 cm, age 18 weeks 0 days. Head circumference 14.94 cm, age 18 weeks 1 days. Abdominal circumference 12.29 cm, age 18 weeks 0 days. Femur length 2.69 cm, age 18 weeks 2 days. Sonographic estimate age: 18 weeks 1 days. Sonographic estimated date of delivery: 02/17/2019. Estimated Weight: 222 gm (+/- 32 gm). LMP percentile: 58%. heart rate: 158 beats per minute. number: 1 of 1. IMPRESSION: Mckoy viable IUP measures 18 weeks 1 day. Sonographic date of confinement 02/17/2019 with no pathological finding revealed. Dictated by: Dictated on workstation # [id number]
== END ==
LOC: RAD 10:20
PROVIDERS: ATTEND Obstetrics & Gynecology
DX: Z36.89 Encounter for other specified antenatal screening (principal); Z3A.18 18 weeks gestation of pregnancy
CPT/HCPCS: 76805

== ENCOUNTER 2019-01-16 20:08 | Inpatient (IN) | payer MEDICAID ==
[~2019-01-16] VITALS: Ht 165.1 cm; Wt 83.6 kg
[2019-01-16] VITALS (10 sets, daily range): BP systolic 108–151; BP diastolic 55–82
--- NOTE | 2019-01-16 20:10 | NUR ---
BETTY RUIZ presented to unit via ambulation from home, by self, with c/o spotting. BETTY RUIZ weighed, gowned, voided, and to bed. EFHM and TOCO applied, VS taken. EBTTY RUIZ oriented to bed controls, call light, TV, heat, and A/C controls. Pt. called prior to arrival.
[2019-01-16] MEDS ORDERED: D5 LR IV SOLUTION 1,000 ML IV ONE (20:41)
[2019-01-16] MEDS ORDERED: D5 LR IV SOLUTION 1,000 ML IV SCH (20:42)
[2019-01-16 20:50] LABS: BASOPHILS % (AUTO) 0 % (0-10); EOSINOPHILS # (AUTO) 0.1 10^3/uL (0.0-0.3); EOSINOPHILS % (AUTO) 1 % (0-10); HEMATOCRIT 34 % (35-52); HEMOGLOBIN 11.3 G/DL (11.5-16.0); LYMPHOCYTES # (AUTO) 2.4 X 10^3 (1.0-4.0); LYMPHOCYTES % (AUTO) 21 % (12-44); MEAN CORPUSCULAR HEMOGLOBIN 26 PG (25-34); MEAN CORPUSCULAR HGB CONC 34 G/DL (32-36); MEAN CORPUSCULAR VOLUME 78 FL (80-99); MEAN PLATELET VOLUME 9.7 FL (7.4-10.4); MONOCYTES # (AUTO) 0.9 X 10^3 (0.0-1.0); MONOCYTES % (AUTO) 8 % (0-12); NEUTROPHILS % (AUTO) 71 % (42-75); PLATELET COUNT 197 10^3/uL (130-400); RED CELL DISTRIBUTION WIDTH 14.2 % (10.0-14.5); WHITE BLOOD COUNT 11.4 10^3/uL (4.3-11.0)
[2019-01-16] MEDS ORDERED: SUFENTA 0.6MCG/ML BUPIVA 0.125 100 ML ONE (21:00)
[2019-01-16] MEDS ORDERED: LIDOCAINE/EPI 2% 1:200,00 (XYLOCAINE) 10 ML VIAL ONE (21:00)
[2019-01-16] MEDS ORDERED: OXYTOCIN/NORMAL SALINE 500 ML IV ONE (21:01)
[2019-01-16] MEDS ORDERED: BUPIVACAINE 0.25% 30 ML (SENSORCAINE) VIAL ONE (21:55)
[2019-01-16] MEDS ORDERED: fentaNYL INJECTION 100 MCG/2 ML AMP ONE (21:55)
[2019-01-16] MEDS ORDERED: CATHETER FLUSH 10 ML SYR IV SCH (22:00)
--- NOTE | 2019-01-16 22:13 | History & Physical-OB ---
OB - Chief Complaint & HPI Date/Time Date of Admission: Date of Admission: Jan 16, 2019 at 20:26 Date seen by a Provider: Jan 16, 2019 Time Seen by a Provider: 21:00 Chief Complaint/History OB-Reason for Admission/Chief: Labor Hx : 4 Hx Para: 2 Expected Date of Delivery: Feb 19, 2019 Gestational Age in Weeks: 35 Gestational Age in Days: 1 Admission Nurse Assessment Rev: Yes History of Labs GBS neg Allergies and Home Medications Allergies Coded Allergies: amoxicillin (Unverified Allergy, Mild, rash, 09/20/16) pertussis vaccine,adsorbed (Unverified Allergy, Unknown, 10/14/15) Home Medications Acetaminophen 325 Mg Tablet, 325 MG PO PRN, (Reported) Doxylamine/Pyridoxine HCl 1 Each Tablet.dr, 2 EACH PO HS Prescribed by: PATTI SHIPMAN on 06/30/18521 Nitrofurantoin Monohyd/M-Cryst 100 Mg Capsule, 100 MG PO BID Prescribed by: PATTI SHIPMAN on 06/30/18521 Sucralfate 1 Gm Tablet, 1 GM PO QIDACHS Prescribed by: PATTI SHIPMAN on 06/30/18521 Venlafaxine HCl 75 Mg Cap.er.24h, 75 MG PO DAILY Prescribed by: OLIMPIA PULLIAM on 05/29/17 0915 Patient Home Medication List Home Medication List Reviewed: Yes OB - History Hx of Present Care: Yes Ultrasounds: Normal mid trimester US Obstetrical Complications: None Medical Complications: None Obstetrical History Hx Termination: Yes Hx Multiple Gestation: No Hx Stillbirth: No Hx Complication: No Hx Induced Hypertens: No Hx Maternal Gestational Diabet: No Delivery History Hx Dystocia: No Hx Large For Gestational Age I: No Hx Small for Gestational Age I: No Hx Section: No Hx Vaginal Delivery Post C-Sec: No Hx Blood Disorders: No Adverse Rxn to Tranfusion: No Patient Past Medical History PMHx: depression Social History/Family History HIV/AIDS: No Recent Infectious Disease Expo: No Sexually Transmitted Disease: Yes (chlamydia 02/2015) Alcohol Use: Denies Use Recreational Drug Use: No 2nd Hand Smoke Exposure: No Immunizations Hepatitis A: Yes Hepatitis B: Yes Tetanus Booster (TDap): More than 5yrs OB - Admission Exam Physical Exam HEENT: NCAT Heart: Rhythm Normal Lungs: Clear Abdomen: Gravid Extremities: Normal Reflexes: Normal Cervical Dilatation: 7cm Effacement: 75% Station: -1 Membranes: Intact Heart Rate: 130's Accelerations: Accelerations Present Decelerations: No Decelerations Short Term Variability: Present Staff Mine Warfare Officer Variability: Average (6-25) Contractions on Admission: < 5 Minutes Apart Labs Laboratory Tests Test 01/16/19 20:35 Range/Units White Blood Count 11.4 H 4.3-11.0 10^3/uL Red Blood Count 4.34 L 4.35-5.85 10^6/uL Hemoglobin 11.3 L 11.5-16.0 G/DL Hematocrit 34 L 35-52 % Mean Corpuscular Volume 78 L 80-99 FL Mean Corpuscular Hemoglobin 26 25-34 PG Mean Corpuscular Hemoglobin Concent 34 32-36 G/DL Red Cell Distribution Width 14.2 10.0-14.5 % Platelet Count 197 130-400 10^3/uL Mean Platelet Volume 9.7 7.4-10.4 FL Neutrophils (%) (Auto) 71 42-75 % Lymphocytes (%) (Auto) 21 12-44 % Monocytes (%) (Auto) 8 0-12 % Eosinophils (%) (Auto) 1 0-10 % Basophils (%) (Auto) 0 0-10 % Neutrophils # (Auto) 8.0 H 1.8-7.8 X 10^3 Lymphocytes # (Auto) 2.4 1.0-4.0 X 10^3 Monocytes # (Auto) 0.9 0.0-1.0 X 10^3 Eosinophils # (Auto) 0.1 0.0-0.3 10^3/uL Basophils # (Auto) 0.0 0.0-0.1 10^3/uL OB - Assessment/Plan/Diagnosis Assessment Assessment: labor Admission Dx 23 yo @ 35 weeks labor GBS neg Admission Status: Inpatient Order (span 2 midnights) Reason for Inpatient Admission: labor 35 weeks Impending delivery Plan Plan: Expectant Management PARUL HUDSON DO Jan 16, 2019 22:13
[2019-01-16] MEDS ORDERED: DIBUCAINE (NUPERCAINAL) 1% OINT 30 GM TOP PRN (22:30)
[2019-01-16] MEDS ORDERED: MEASLES,MUMPS,RUBELLA 1 EA INJ SQ ONE (22:30)
[2019-01-16] MEDS: OXYTOCIN/NORMAL SALINE 500 ML IV SCH (22:32)
[2019-01-16] MEDS ORDERED: LACTATED RINGERS 1,000 ML IV SCH (22:33)
[2019-01-16] MEDS ORDERED: diphenhydrAMINE 50 MG/ML INJ (BENADRYL) IV PRN (22:45)
[2019-01-16] MEDS ORDERED: EPIDURAL (SUFENTA 0.6MCG/ML BUPIVA 0.125%) 100 ML BAG EPI PRN (22:45)
[2019-01-16] MEDS ORDERED: NALOXONE 0.4 MG/ML 1 ML (NARCAN) VIAL IV PRN ×2 (22:45)
[2019-01-16] MEDS ORDERED: ONDANSETRON 4 MG/2 ML (SDV) Z0FRAN IV PRN (22:45)
[2019-01-16] MEDS ORDERED: METOCLOPRAMIDE INJ 10 MG/2 ML (REGLAN) IV PRN (22:45)
[2019-01-16] MEDS ORDERED: CALCIUM CARBONATE 500 MG (TUMS) TAB.CHEW ONE (23:08)
[2019-01-17] VITALS (20 sets, daily range): BP systolic 97–135; BP diastolic 52–80
[2019-01-17] MEDS: OXYTOCIN/NORMAL SALINE 500 ML IV SCH (01:30)
[2019-01-17] MEDS ORDERED: CALCIUM CARBONATE 500 MG (TUMS) TAB.CHEW PO PRN (03:15)
--- NOTE | 2019-01-17 03:18 | NUR ---
EPIDURAL CATH REMOVED, TIP IN TACT, SITE WNL, ASYMPTOMATIC PER PT REPORT. SITE LEFT O/A.
--- NOTE | 2019-01-17 04:00 | NUR ---
Pt up standby to bathroom per Roger nogueira, first void since delivery. Pericare assist, pt to for transfer to pp unit room 309, oriented to call system info packet and surroundings. Will cont to monitor.
[2019-01-17] MEDS ORDERED: CATHETER FLUSH 10 ML SYR IV SCH (06:00)
[2019-01-17] MEDS: IBUPROFEN 600 MG (MOTRIN) TAB PO SCH ×5 (06:29→23:30)
[2019-01-17] MEDS: WITCH HAZEL(TUCKS) 40 EA JAR TOP PRN (06:36)
[2019-01-17] MEDS: BENZOCAINE/MENTHOL (DERMOPLAST) 56 ML CAN TP PRN (06:36)
[2019-01-17 06:46] LABS: BASOPHILS % (AUTO) 0 % (0-10); EOSINOPHILS # (AUTO) 0.1 10^3/uL (0.0-0.3); EOSINOPHILS % (AUTO) 0 % (0-10); HEMATOCRIT 31 % (35-52); HEMOGLOBIN 10.5 G/DL (11.5-16.0); LYMPHOCYTES # (AUTO) 2.2 X 10^3 (1.0-4.0); LYMPHOCYTES % (AUTO) 17 % (12-44); MEAN CORPUSCULAR HEMOGLOBIN 26 PG (25-34); MEAN CORPUSCULAR HGB CONC 34 G/DL (32-36); MEAN CORPUSCULAR VOLUME 78 FL (80-99); MEAN PLATELET VOLUME 10.2 FL (7.4-10.4); MONOCYTES # (AUTO) 0.9 X 10^3 (0.0-1.0); MONOCYTES % (AUTO) 7 % (0-12); NEUTROPHILS # (AUTO) 9.5 X 10^3 (1.8-7.8); NEUTROPHILS % (AUTO) 75 % (42-75); PLATELET COUNT 184 10^3/uL (130-400); RED CELL DISTRIBUTION WIDTH 14.2 % (10.0-14.5); WHITE BLOOD COUNT 12.8 10^3/uL (4.3-11.0)
--- NOTE | 2019-01-17 09:23 | OB Labor & Delivery Record ---
L&D History Date of Service Date of Service: Jan 17, 2019 History Expected Date of Delivery: Feb 19, 2019 Gestational Age in Weeks: 35 Hx : 4 Hx Para: 2 Complications Events: Labor <37 wks Operative Indications (Cesarea: N/A-Vaginal Delivery Intrapartal Events: None L&D Stage1 Stage One Onset of Labor - Date: Jan 17, 2019 Monitors and Tracing Monitor Mode: External Heart Rate: 120 Monitor Accelerations: Uniform Monitor Decelerations: None Station: -1 Wire Walker Variability: Average (6-10) Short Term Variability: Present Presentation: Vertex Vital Signs VS - Last 72 Hours, by Label 01/16/19 01/16/19 01/16/19 01/16/19 20:20 22:05 22:08 22:11 Temp 99.2 Pulse 78 113 100 91 Resp 18 18 18 18 B/P (MAP) 136/76 (96) 143/81 (101) 139/80 (99) 118/82 (94) Pulse Ox 100 100 100 98 O2 Delivery Room Air Room Air Room Air Room Air 01/16/19 01/16/19 01/16/19 01/16/19 22:16 22:18 22:23 22:25 Temp 99.0 Pulse 118 117 99 99 Resp 18 18 18 18 B/P (MAP) 151/60 (90) 139/68 (91) 120/55 (76) 108/59 (75) Pulse Ox 100 100 100 100 O2 Delivery Room Air Room Air Room Air Room Air 01/16/19 01/16/19 01/17/19 01/17/19 22:28 22:31 00:00 00:15 Pulse 91 82 75 78 Resp 18 18 18 18 B/P (MAP) 114/64 (81) 119/61 (80) 122/61 (81) 131/60 (83) Pulse Ox 100 100 100 100 O2 Delivery Room Air Room Air Room Air Room Air 01/17/19 01/17/19 01/17/19 01/17/19 00:30 00:45 01:00 01:15 Temp 98.8 Pulse 82 87 96 92 Resp 18 18 18 18 B/P (MAP) 129/80 (96) 134/57 (82) 135/69 (91) Pulse Ox 100 100 O2 Delivery Room Air Room Air Room Air Room Air 01/17/19 01/17/19 01/17/19 01/17/19 01:30 01:45 01:59 02:15 Temp 97.7 98.0 Pulse 81 78 68 72 Resp 18 18 18 18 B/P (MAP) 123/58 (79) 120/58 (78) 116/58 (77) 104/57 (73) O2 Delivery Room Air Room Air Room Air Room Air 01/17/19 01/17/19 01/17/19 01/17/19 02:30 02:44 02:59 03:15 Pulse 68 72 70 75 Resp 18 18 18 18 B/P (MAP) 97/52 (67) 99/53 (68) 101/56 (71) 101/54 (70) O2 Delivery Room Air Room Air Room Air Room Air 01/17/19 01/17/19 01/17/19 03:29 03:45 06:42 Temp 98.0 Pulse 71 87 68 Resp 18 18 18 B/P (MAP) 104/57 (73) 116/53 (74) 115/73 (87) Pulse Ox 99 O2 Delivery Room Air Room Air Room Air Rupture of Membranes Spontaneous Ruture of Membrane: No Amniotic Membrane Rupture Time: 2218 Amniotic Membrane Fluid Desc.: Clear Vaginal Bleeding Description: Normal Show Induction/Anesthesia Epidural Cath Placement - Time: 2207 Progress/Notes Patient presented 7 cm dilatation, AROM performed and low dose pitocin used and patient progressed to complete and +2 station L&D Stage2 Stage Two Stage II Date: Jan 17, 2019 Monitors and Tracing Monitor Mode: External Heart Rate: 120 Monitor Accelerations: Uniform Monitor Decelerations: Variable Wire Walker Variability: Average (6-10) Short Term Variability: Present Position: Right Occiput Anterior Presentation: Vertex Cord Descript/Complications Cord Vessel Description: 3 Vessels Delivery Type Delivery Method: Spontaneous Vaginal Anterior Shoulder: Right Episiotomy/Perineal Laceration Laceraction(s)/Extensions: Yes Episiotomy Description: Midline Degree (describe repair) midline episiotomy repaired using 30 rapide in usual fashion Condition of Infant Delivery 1 minute Comment: 9 5 minute Comment: 10 Notes Live male infant weight 6lbs 5 oz Condition of Condition of : Living Exam: No Observed Abnormalities Resuscitation Resuscitation: N/A - Spontaneous Resp L&D Stage3 Stage Three Stage III Date: Jan 17, 2019 Pictocin Pitocin Administration mu/min: 10 Pitocin ml/hr: 10 Pitocin Administration Comment: 30 mu wide open at delivery of placenta Placenta Delivery Placenta Delivery: Spontaneous Delivery Summary Summary Estimated blood loss (mL): 300 Attending at delivery: Parul Hudson DO Condition of Delivery Examined: Cervix Examined, Uterus Explored Post Hemorrhage: No Condition of Mother stable Condition of (s) stable PARUL HUDSON DO Jan 17, 2019 09:23
[2019-01-17] MEDS ORDERED: DOCU100C37 PO (09:26)
[2019-01-17] MEDS ORDERED: FERR325T18 PO (09:26)
[2019-01-17] MEDS ORDERED: IBUP-844 PO (09:26)
[2019-01-17] MEDS ORDERED: DIBU30OI TOP (09:26)
[2019-01-17] MEDS ORDERED: ACHD5005 PO (09:26)
[2019-01-17] MEDS ORDERED: Benzocaine/Menthol TP (09:26)
--- NOTE | 2019-01-17 09:28 | Discharge Inst-Women's Service ---
Discharge Inst-Women's Serv Depart Medication/Instructions New, Converted or Re-Newed RX: RX on Chart Final Diagnosis PPD 1 NVD Problems Reviewed?: Yes Consults/Follow Up Additional Follow Up: Yes Orders/Referrals Dr. Hudson in 6 weeks Activity Activity: Activity as Tolerated Driving Instructions: No Driving for 1 Week NO SMOKING: NO SMOKING Nothing Inside Vagina: No Douching, No [place], No Tampons Diet Discharge Diet: No Restrictions Symptoms to Report to : Bleeding Excessive, Pain Increased, Fever Over 101 Degrees F, Vaginal Bleeding Increase, Questions/Concerns For Any Problems or Questions: Contact Your Physician PARUL HUDSON DO Jan 17, 2019 09:28
[2019-01-17] MEDS: HYDROcodone/APAP 5 MG/325 MG (LORTAB) TAB PO PRN ×2 (09:31→16:31)
[2019-01-17] MEDS: PRENATAL VITAMIN 1 EA TAB PO SCH (09:31)
[2019-01-17] MEDS: FERROUS SULF 325 MG (IRON) TAB PO SCH (09:31)
[2019-01-17] MEDS: DOCUSATE SODIUM 100 MG (COLACE) CAP PO SCH ×2 (09:31→19:40)
--- NOTE | 2019-01-17 09:35 | NUR ---
PT IN BED. MEDS GIVEN PO; SEE EMAR FOR FURTHER. VS OBTAINED. WILL RETURN SHORTLY FOR ASSESSMENT AND TO DC IV PER REQUEST.
--- NOTE | 2019-01-17 10:20 | NUR ---
PT IN BED. INITIAL SHIFT ASSESSMENT COMPLETED; SEE INTERVENTION FOR FURTHER. IV DC'D. GAUZE AND BAND AID APPLIED. VISITORS AT THE BEDSIDE. CALL LIGHT WITHIN REACH.
--- NOTE | 2019-01-17 12:58 | NUR ---
PT IN BED, RESTING. VS OBTAINED. ROUTINE MOTRIN GIVEN PO; SEE EMAR FOR FURTHER. NO NEEDS VOICED. S/O AT THE BEDSIDE.
--- NOTE | 2019-01-17 13:30 | Anesthesia-Regional Post-Op ---
Regional Patient Condition Mental Status: Alert, Oriented x3 Circulation: Same as Pre-Op Headache: Absent Sensation: Full Recovery Motor Block: Absent Post Op Complications Complications None Follow Up Care/Instructions Patient Instructions None needed. Anesthesia/Patient Condition Patient is doing well, no complaints, stable vital signs, no apparent adverse anesthesia problems. No complications reported per nursing. MADDI STACK CRNA Jan 17, 2019 13:30
--- NOTE | 2019-01-17 15:40 | NUR ---
PT INFANT, VISITORS AT THE BEDSIDE. PT INFORMED THIS RN THAT SHE WAS SUPPOSE TO LET NURSERY RN KNOW WHEN SHE WAS FEEDING AGAIN. Syed HERNANDEZ, NURSERY RN NOTIFIED.
--- NOTE | 2019-01-17 16:31 | NUR ---
PT IN BED, VISITORS AT THE BEDSIDE. VS OBTAINED. PT C/O PAIN. (1) LORTAB GIVEN; SEE EMAR FOR FURTHER. NO FURTHER NEEDS VOICED.
--- NOTE | 2019-01-17 18:43 | NUR ---
PT SITTING UP IN BED. VISITORS AT THE BEDSIDE. ROUTINE MOTRIN GIVEN PO; SEE EMAR FOR FURTHER. NO NEEDS OR QUESTIONS VOICED AT THIS TIME.
--- NOTE | 2019-01-17 19:46 | NUR ---
Pt sitting up in bed. assessment completed. family/friends at bedside. pt denies any needs at this time. will continue to monitor.
[2019-01-18 01:33] VITALS: BP 113/68
--- NOTE | 2019-01-18 01:34 | NUR ---
Pt put video production specialist light requesting nb go to [facility]. Explained to mother that [facility]sy rn was in a delivery at this time and that we would take nb to [facility] as soon as we could. mother verbalized understanding.
--- NOTE | 2019-01-18 09:00 | NUR ---
ROOM SERVICE DELIVERING BREAKFAST TO ROOM.
--- NOTE | 2019-01-18 09:27 | Postpartum Progress Note ---
Note Note Day # 1 Subjective: Patient is without complaints. Ambulating, voiding. Tolerating a regular diet without nausea or vomiting. Normal lochia. Pain is well controlled with oral pain medications. Objective: Physical Exam: General - Alert and oriented, no apparent distress Abdomen - Soft, appropriately tender to palpation, non-distended, fundus firm at umbilicus Extremities - no edema, negative Blade's bilaterally Assessment: PPD 1 NVD Acute blood loss anemia PTL/Delivery Plan: Routine care. Encourage breast feeding. Encourage ambulation. Ferrous sulfate supplementation. Plan for discharge today Vitals - Labs Vital Signs - I&O Vital Signs Date Time Temp Pulse Resp B/P (MAP) Pulse Ox O2 Delivery O2 Flow Rate FiO2 01/18/19 01:33 97.6 71 18 113/68 (83) 98 Room Air 01/17/19 19:44 98.0 65 18 109/68 (82) 98 Room Air 01/17/19 16:27 98.2 72 18 114/78 (90) 98 Room Air 01/17/19 12:57 97.6 58 18 115/67 (83) 98 Room Air 01/17/19 09:33 97.9 78 18 102/78 (86) 98 Room Air PARUL HUDSON DO Jan 18, 2019 09:27
--- NOTE | 2019-01-18 09:29 | NUR ---
DR. HUDSON HERE, TO PT'S BEDSIDE.
[2019-01-18] MEDS: FERROUS SULF 325 MG (IRON) TAB PO SCH (09:44)
[2019-01-18] MEDS: PRENATAL VITAMIN 1 EA TAB PO SCH (09:44)
[2019-01-18] MEDS: DOCUSATE SODIUM 100 MG (COLACE) CAP PO SCH (09:44)
[2019-01-18] MEDS: IBUPROFEN 600 MG (MOTRIN) TAB PO SCH ×2 (09:44→16:05)
[2019-01-18 09:46] VITALS: BP 116/73
--- NOTE | 2019-01-18 09:47 | NUR ---
PT SITTING UP ON THE SIDE OF THE BED. MEDS GIVEN PO; SEE EMAR FOR FURTHER. VS OBTAINED. INITIAL SHIFT ASSESSMENT COMPLETED; SEE INTERVENTION FOR FURTHER. PLAN TO DISCHARGE PT TO BOARDER STATUS. PT DENIES ANY NEEDS OR QUESTIONS AT THIS TIME. S/O AT THE BEDSIDE.
--- NOTE | 2019-01-18 13:00 | NUR ---
PT SITTING IN BED, TENDING TO INFANT. VISITORS AT THE BEDSIDE. NO NEEDS VOICED.
--- NOTE | 2019-01-18 14:04 | NUR ---
DISCHARGE PAPERS PROVIDED AND REVIEWED WITH PT AND S/O; UNDERSTANDING VERBALIZED. QUESTIONS ANSWERED. PAPER SIGNED. PRESCRIPTIONS AND BOARDER MOM INFO ALSO PROVIDED AT THIS TIME.
[2019-01-18 16:04] VITALS: BP 119/66
[2019-01-18] MEDS: WITCH HAZEL(TUCKS) 40 EA JAR TOP PRN (16:06)
[2019-01-18] MEDS: BENZOCAINE/MENTHOL (DERMOPLAST) 56 ML CAN TP PRN (16:06)
--- NOTE | 2019-01-18 16:10 | NUR ---
PT DISCHARGED FROM -[facility] TO [facility] STATUS IN STABLE CONDITION. S/O AT PT'S BEDSIDE.
== END 2019-01-18 16:10 | disposition home or self-care (01) | DRG 806 ==
LOC: LDRP 20:08 → WSo 20:08 → LDRP 20:26
PROVIDERS: ADMIT Obstetrics & Gynecology; ATTEND Obstetrics & Gynecology
PROC: 10E0XZZ Delivery of Products of Conception, External Approach (ICD-10-PCS; principal; 2019-01-17)
PROC: 0W8NXZZ Division of Female Perineum, External Approach (ICD-10-PCS; 2019-01-17)
DX: O60.14X0 Preterm labor third trimester with preterm delivery third trimester, not applicable or unspecified (principal); O90.81 Anemia of the puerperium; D62 Acute posthemorrhagic anemia; Z37.0 Single live birth; Z3A.35 35 weeks gestation of pregnancy
CPT/HCPCS: 36415; 85025; 86850; 86900; 86901; 99212

== ENCOUNTER 2019-06-04 16:09 | Outpatient (RCR) | payer MEDICAID ==
[~2019-06-04 16:09] MED LIST changes: +Benzocaine/Menthol TP; +DIBU30OI TOP; +DOCU100C37 PO; +FERR325T18 PO; +IBUP-844 PO
== END 2019-06-09 | disposition home or self-care (01) ==
PROVIDERS: ATTEND Obstetrics & Gynecology
DX: Z39.2 Encounter for routine postpartum follow-up (principal); M53.3 Sacrococcygeal disorders, not elsewhere classified; R32 Unspecified urinary incontinence

== ENCOUNTER 2019-06-22 15:54 | Outpatient (RCR) | payer MEDICAID | END 2019-07-17 15:51 | disposition home or self-care (01) | PROVIDERS: ATTEND Obstetrics & Gynecology | DX: M53.3 Sacrococcygeal disorders, not elsewhere classified (principal); R32 Unspecified urinary incontinence; F32.9 Major depressive disorder, single episode, unspecified; Z98.890 Other specified postprocedural states ==

== ENCOUNTER 2019-08-14 20:21 | Emergency (ER) | payer MEDICAID ==
[~2019-08-14] VITALS: Ht 165 cm; Wt 77.2 kg
--- NOTE | 2019-08-14 21:05 | ED General ---
General Chief Complaint: Fever-Adult/Adol Stated Complaint: SOB,FEVER Nursing Triage Note: PT TO ED W/ C/O SOB ET FEVER ONSET X3 DAYS. PT REPORTS HER SON ATTENDS THE SAME PRESCHOOL A CHILD RECENTLY DX W/ COVID 19 Nursing Sepsis Screen: No Definite Risk Source of Information: Patient Exam Limitations: No Limitations History of Present Illness Date Seen by Provider: Aug 14, 2019 Time Seen by Provider: 20:18 Initial Comments This 24-year-old young lady presents to the emergency room with complaints of fever up to 102 at home, and a tickle in her throat, and shortness of breath. This is day number 3 of her illness. She reports her son and are both ill with cough. Her son reportedly attends preschool with a 4-year-old who recently tested positive for COVID-19. She denies any recent travel. She denies any use of medications or significant health history. She does not smoke and has no history of respiratory problems. She is tachycardic and visibly dyspneic. Allergies and Home Medications Allergies Coded Allergies: amoxicillin (Unverified Allergy, Mild, rash, 09/20/16) pertussis vaccine,adsorbed (Unverified Allergy, Unknown, 10/14/15) Home Medications Dibucaine 30 Gm Oint, 0 GM TOP UD PRN for PAIN- SEE INSTRUCTIONS Prescribed by: PARUL HUDSON on 01/17/19925 Docusate Sodium 100 Mg Capsule, 100 MG PO BID Prescribed by: PARUL HUDSON on 01/17/19925 Ferrous Sulfate 325 Mg Tablet, 325 MG PO DAILY Prescribed by: PARUL HUDSON on 01/17/19925 Hydrocodone Bit/Acetaminophen 1 Tab Tab, 1 TAB PO Q4H PRN for PAIN-MODERATE Prescribed by: PARUL HUDSON on 01/17/19925 Ibuprofen 600 Mg Tablet, 600 MG PO Q6HR Prescribed by: PARUL HUDSON on 01/17/19925 [Benzocaine/Menthol] 56 ML AEROSOL, 56 ML TP UD PRN for PAIN- SEE INSTRUCTIONS EXTERNAL USE ONLY Prescribed by: PARUL HUDSON on 01/17/19925 Patient Home Medication List Home Medication List Reviewed: Yes Review of Systems Review of Systems Constitutional: see HPI EENTM: see HPI Respiratory: see HPI Cardiovascular: see HPI Gastrointestinal: no symptoms reported Genitourinary: no symptoms reported : No Musculoskeletal: no symptoms reported Skin: no symptoms reported Psychiatric/Neurological: No Symptoms Reported Hematologic/Lymphatic: No Symptoms Reported Immunological/Allergic: no symptoms reported Past Qvwrsyo-Xpbzzn-Tjpviq Hx Past Med/Social Hx: Reviewed Nursing Past Med/Soc Hx Patient Social History Alcohol Use: Occasionally Uses Recreational Drug Use: No Smoking Status: Never a Smoker 2nd Hand Smoke Exposure: No Recent Foreign Travel: No Contact w/Someone Who Travel: No Recent Infectious Disease Expo: No Recent Hopitalizations: No Immunizations Up To Date Tetanus Booster (TDap): More than 5yrs PED Vaccines UTD: No Seasonal Allergies Seasonal Allergies: No Past Medical History Surgeries: Yes (RIGHT BREAST BIOPSY) Breast Respiratory: No Cardiac: No Neurological: No : No Reproductive Disorders: Yes Sexually Transmitted Disease: Yes (chlamydia 02/2015) HIV/AIDS: No Genitourinary: No Gastrointestinal: Yes Gastroesophageal Reflux Musculoskeletal: No Endocrine: No HEENT: No Cancer: No Psychosocial: Yes Anxiety, Depression Integumentary: No Blood Disorders: No Adverse Reaction/Blood Tranf: No Family Medical History Patient reports no known family medical history. Physical Exam-Suspected Sepsis Physical Exam Vital Signs Vital Signs - First Documented 08/14/19 20:35 Temp 37.8 Pulse 100 Resp 20 B/P (MAP) 127/83 (98) Pulse Ox 98 O2 Delivery Room Air Capillary Refill : Less Than 3 Seconds Blood Pressure Mean: 98 Height, Weight, BMI Height: 5'5.00" Weight: 184lbs. 6.0oz. 83.516995ax; 28.00 BMI Method:Stated General Appearance: WD/WN, Anxious HEENT: PERRL/EOMI, TMs Normal, Normal ENT Inspection, Pharynx Normal Neck: Normal Inspection Respiratory: Lungs Clear, Normal Breath Sounds, No Accessory Muscle Use, No Respiratory Distress, Other (mildly tachypneic and dyspneic) Cardiovascular: No Edema, No Murmur, Tachycardia Gastrointestinal: Normal Bowel Sounds, Non Tender, Soft Extremity: Normal Inspection, Non Tender, No Calf Tenderness, No Pedal Edema Neurologic/Psychiatric: Alert, Oriented x3, No Motor/Sensory Deficits, Normal Mood/Affect, research executive II-XII Norm as Tested Skin: normal color, warm/dry Focused Exam Lactate Level 08/14/19 20:53: Lactic Acid Level 1.25 Lactic Acid Level Progress/Results/Core Measures Suspected Sepsis Recent Fever Within 48 Hours: No Infection Criteria Present: None New/Unexplained Altered Menta: No Sepsis Screen: No Definite Risk SIRS Temperature: Pulse: 100 Respiratory Rate: 20 Laboratory Tests 08/14/19 20:53: White Blood Count 8.3 Blood Pressure 127 /83 Mean: 98 08/14/19 20:53: Lactic Acid Level 1.25 Laboratory Tests 08/14/19 20:53: Creatinine 0.78, INR Comment 0.9, Platelet Count 265, Total Bilirubin 0.3 Results/Orders Lab Results Laboratory Tests Test 08/14/19 20:43 08/14/19 20:53 08/14/19 21:08 Range/Units Group A Streptococcus Screen NEGATIVE NEGATIVE White Blood Count 8.3 4.3-11.0 10^3/uL Red Blood Count 5.50 4.35-5.85 10^6/uL Hemoglobin 15.2 11.5-16.0 G/DL Hematocrit 43 35-52 % Mean Corpuscular Volume 78 L 80-99 FL Mean Corpuscular Hemoglobin 28 25-34 PG Mean Corpuscular Hemoglobin Concent 35 32-36 G/DL Red Cell Distribution Width 13.1 10.0-14.5 % Platelet Count 265 130-400 10^3/uL Mean Platelet Volume 9.5 7.4-10.4 FL Neutrophils (%) (Auto) 54 42-75 % Lymphocytes (%) (Auto) 32 12-44 % Monocytes (%) (Auto) 11 0-12 % Eosinophils (%) (Auto) 3 0-10 % Basophils (%) (Auto) 1 0-10 % Neutrophils # (Auto) 4.5 1.8-7.8 X 10^3 Lymphocytes # (Auto) 2.6 1.0-4.0 X 10^3 Monocytes # (Auto) 0.9 0.0-1.0 X 10^3 Eosinophils # (Auto) 0.3 0.0-0.3 10^3/uL Basophils # (Auto) 0.0 0.0-0.1 10^3/uL Prothrombin Time 13.0 12.2-14.7 SEC INR Comment 0.9 0.8-1.4 Activated Partial Thromboplast Time 37 H 24-35 SEC Sodium Level 139 135-145 MMOL/L Potassium Level 3.5 L 3.6-5.0 MMOL/L Chloride Level 105 98-107 MMOL/L Carbon Dioxide Level 21 21-32 MMOL/L Anion Gap 13 5-14 MMOL/L Blood Urea Nitrogen 20 H 7-18 MG/DL Creatinine 0.78 0.60-1.30 MG/DL Estimat Glomerular Filtration Rate > 60 BUN/Creatinine Ratio 26 Glucose Level 75 70-105 MG/DL Lactic Acid Level 1.25 0.50-2.00 MMOL/L Calcium Level 9.2 8.5-10.1 MG/DL Corrected Calcium 8.5-10.1 MG/DL Total Bilirubin 0.3 0.1-1.0 MG/DL Aspartate Amino Transf (AST/SGOT) 26 5-34 U/L Alanine Aminotransferase (ALT/SGPT) 29 0-55 U/L Alkaline Phosphatase 106 40-136 U/L C-Reactive Protein High Sensitivity 0.52 H 0.00-0.50 MG/DL Total Protein 7.9 6.4-8.2 GM/DL Albumin 4.7 H 3.2-4.5 GM/DL Serum Test, Qualitative NEGATIVE NEGATIVE Urine Color YELLOW Urine Clarity SL CLOUDY Urine pH 6.0 5-9 Urine Specific [place] >=1.030 1.016-1.022 Urine Protein NEGATIVE NEGATIVE Urine Glucose (UA) NEGATIVE NEGATIVE Urine Ketones NEGATIVE NEGATIVE Urine Nitrite NEGATIVE NEGATIVE Urine Bilirubin NEGATIVE NEGATIVE Urine Urobilinogen 0.2 < = 1.0 MG/DL Urine Leukocyte Esterase NEGATIVE NEGATIVE Urine RBC (Auto) 1+ H NEGATIVE Urine RBC 5-10 H /HPF Urine WBC 2-5 /HPF Urine Squamous Epithelial Cells 2-5 /HPF Urine Crystals PRESENT H /LPF Urine Calcium Oxalate Crystals FEW H /LPF Urine Bacteria TRACE /HPF Urine Casts NONE /LPF Urine Mucus MODERATE H /LPF Urine Culture Indicated NO Micro Results Microbiology 08/14/19 Influenza Types A,B Antigen (VAUGHN) - Final, Complete My Orders Orders - ERNESTO TORRES MD Cbc With Automated Diff (08/14/19 20:48) Comprehensive Metabolic Panel (08/14/19 20:48) Blood Culture (08/14/19 20:48) Sputum Culture (08/14/19 20:48) Urinalysis (08/14/19 20:48) Urine Culture (08/14/19 20:48) Protime With Inr (08/14/19 20:48) Partial Thromboplastin Time (08/14/19 20:48) Chest 1 View, Ap/Pa Only (08/14/19 20:48) Ed Iv/Invasive Line Start (08/14/19 20:48) Ed Iv/Invasive Line Start (08/14/19 20:48) Vital Signs Adult Sepsis Patie Q15M (08/14/19 20:48) O2 (08/14/19 20:48) Remove Rings In Anticipation O (08/14/19 20:48) Lactic Acid Analyzer (08/14/19 20:48) Influenza A And B Antigens (08/14/19 20:48) Rapid Strep A Screen (08/14/19 20:48) Hs C Reactive Protein (08/14/19 20:48) Hcg,Qualitative Serum (08/14/19 20:48) Vital Signs/I&O 08/14/19 08/15/19 20:35 00:30 Temp 37.8 37.8 Pulse 100 111 Resp 20 20 B/P (MAP) 127/83 (98) 128/81 (98) Pulse Ox 98 95 O2 Delivery Room Air Room Air Capillary Refill : Less Than 3 Seconds Blood Pressure Mean: 98 Progress Note : Progress Note Workup was unremarkable. Vital signs were stable and patient exhibited no hypo idalia. Given respiratory illness in the other family members, she likely has a viral syndrome as well. Influenza and rapid strep screening were negative. [place] virus testing was therefore performed. Patient was dismissed home with instructions for home quarantine for all family members. We discussed the discharge instructions at length. Diagnostic Imaging Diagonstic Imaging: Xray Plain Films/CT/US/NM/MRI: chest Comments Chest x-ray viewed by me and report not yet available. No acute abnormalities appreciated. Departure Impression Primary Impression: Febrile illness Additional Impression: Dyspnea Qualified Codes: R06.02 - Shortness of breath Disposition: HOME, SELF-CARE Condition: Stable Departure-Patient Inst. Decision time for Depature: 23:55 Referrals: PARUL HUDSON DO (PCP) Primary Care Physician Patient Instructions: COVID19, Shortness of Breath (Dyspnea) Add. Discharge Instructions: Drink plenty of clear liquids to stay well-hydrated. You may take Tylenol (acetaminophen) up to 1000 mg every 6 hours as needed for fever or pain. Home isolated your entire family until otherwise instructed by the health department because of your recent exposures and symptoms. Please contact the [facility] Department on Saturday at [phone]. If you need more urgent information please call the emergency room or the [facility] at [phone]. If you need urgent care for you or any family members, please either return to the emergency room or call 911. If you call 911, please clearly state to the dispatcher that you are under investigation for possible coronavirus. If you presented to the emergency room, call ahead and state the same. All discharge instructions reviewed with patient and/or family. Voiced understanding. ERNESTO TORRES MD Aug 14, 2019 21:05
[2019-08-14 21:13] LABS: BASOPHILS % (AUTO) 1 % (0-10); EOSINOPHILS # (AUTO) 0.3 10^3/uL (0.0-0.3); EOSINOPHILS % (AUTO) 3 % (0-10); HEMATOCRIT 43 % (35-52); HEMOGLOBIN 15.2 G/DL (11.5-16.0); LYMPHOCYTES # (AUTO) 2.6 X 10^3 (1.0-4.0); LYMPHOCYTES % (AUTO) 32 % (12-44); MEAN CORPUSCULAR HEMOGLOBIN 28 PG (25-34); MEAN CORPUSCULAR HGB CONC 35 G/DL (32-36); MEAN CORPUSCULAR VOLUME 78 FL (80-99); MEAN PLATELET VOLUME 9.5 FL (7.4-10.4); MONOCYTES # (AUTO) 0.9 X 10^3 (0.0-1.0); MONOCYTES % (AUTO) 11 % (0-12); NEUTROPHILS # (AUTO) 4.5 X 10^3 (1.8-7.8); NEUTROPHILS % (AUTO) 54 % (42-75); PLATELET COUNT 265 10^3/uL (130-400); RED CELL DISTRIBUTION WIDTH 13.1 % (10.0-14.5); WHITE BLOOD COUNT 8.3 10^3/uL (4.3-11.0)
[2019-08-14 21:16] LABS: BILIRUBIN,URINE NEGATIVE (NEGATIVE); CLARITY,URINE SL CLOUDY; COLOR,URINE YELLOW; GLUCOSE, URINE (UA) NEGATIVE (NEGATIVE); KETONES,URINE NEGATIVE (NEGATIVE); LEUKOCYTE ESTERASE ,URINE NEGATIVE (NEGATIVE); NITRITE,URINE NEGATIVE (NEGATIVE); PROTEIN,URINE NEGATIVE (NEGATIVE)
[2019-08-14 21:31] LABS: INR 0.9 (0.8-1.4)
[2019-08-14 21:39] LABS: ALANINE AMINOTRANSFERASE 29 U/L (0-55); ALBUMIN 4.7 GM/DL (3.2-4.5); ALKALINE PHOSPHATASE 106 U/L (40-136); BILIRUBIN,TOTAL 0.3 MG/DL (0.1-1.0); BUN/CREATININE RATIO 26; CALCIUM 9.2 MG/DL (8.5-10.1); CARBON DIOXIDE 21 MMOL/L (21-32); CHLORIDE 105 MMOL/L (98-107); CREATININE SERUM 0.78 MG/DL (0.60-1.30); GFR ESTIMATED > 60; GLUCOSE 75 MG/DL (70-105); POTASSIUM 3.5 MMOL/L (3.6-5.0); SODIUM 139 MMOL/L (135-145); TOTAL PROTEIN 7.9 GM/DL (6.4-8.2)
[2019-08-14 22:01] LABS: BACTERIA,URINE TRACE /HPF; CALCIUM OXALATE CRYSTALS,UR FEW /LPF
[2019-08-15 00:30] VITALS: BP 128/81
--- NOTE | 2019-08-15 06:12 | Diagnostic Imaging Report ---
EXAM: CHEST 1 VIEW, AP/PA ONLY INDICATION: Shortness of breath. Fever. COMPARISON: None. FINDINGS: Normal heart size and pulmonary vascularity. No dense consolidation, pleural effusion or pneumothorax. No acute osseous findings. IMPRESSION: No acute cardiopulmonary findings. Dictated by: Dictated on workstation # [id number]
== END 2019-08-15 00:32 | disposition home or self-care (01) ==
LOC: EDUNIT# 20:21 → ER 20:22
DX: R50.9 Fever, unspecified (principal); R06.02 Shortness of breath; R05 Cough; K21.9 Gastro-esophageal reflux disease without esophagitis; F41.9 Anxiety disorder, unspecified; F32.9 Major depressive disorder, single episode, unspecified
CPT/HCPCS: 36415; 71045; 80053; 81000; 83605; 84703; 85025; 85610; 85730; 86141; 87040; 87088; 87430; 87635; 87804

== ENCOUNTER 2020-09-19 13:55 | Outpatient (CLI) | payer MEDICAID ==
[~2020-09-19] VITALS: Ht 165 cm; Wt 78.5 kg
[2020-09-19 14:00] VITALS: BP 143/86
[2020-09-19 15:00] VITALS: BP 143/86
--- NOTE | 2020-09-19 16:25 | Diagnostic Imaging Report ---
INDICATION: Ruptured membranes. TECHNIQUE: Multiple real-time grayscale images were obtained over the gravid uterus. COMPARISON: None FINDINGS: There are no prior studies available for comparison. There is a single live fetus in breech presentation. heart motion was noted and a rate of 169 bpm was recorded. However there is virtually no amniotic fluid present. There does seem to be at least a moderate amount of fluid in the cervix. There are no obvious abnormalities identified. The placenta is anterior and there is no clear evidence for previa. growth parameters are fairly uniform. Biometrical measurements are as follows: Biparietal 3.43 cm, age 16 weeks 5 days. Head circumference 13.12 cm, age 16 weeks 6 days. Abdominal circumference 11.76 cm, age 17 weeks 4 days. Femur length 2.42 cm, age 17 weeks 3 days. Sonographic estimate age: 17 weeks 1 days. Sonographic estimated date of delivery: 02/26/2021. Estimated Weight: 190 gm (+/- 28 gm). LMP percentile: 65%. heart rate: 169 beats per minute. number: 1 of 1. IMPRESSION: 1. There is a single live fetus in breech presentation approximately 17 weeks 1 day gestation +/- 1 week. The EDC is 02/26/2021. 2. There is virtually no amniotic fluid present. This does suggest premature rupture of membranes. Also, there does seem to be at least a moderate amount of fluid in the cervix. 3. There are no obvious abnormalities identified. 4. These results were called to Dr. Dallas Phan. Dictated by: Dictated on workstation # [id number]
[2020-09-19] MEDS ORDERED: D5 LR IV SOLUTION 1,000 ML IV SCH (16:30)
[2020-09-19] MEDS ORDERED: ACETAMINOPHEN 500 MG TAB (TYLENOL) PO ONE (16:30)
[2020-09-19 16:50] LABS: BASOPHILS % (AUTO) 0 % (0-10); EOSINOPHILS % (AUTO) 0 % (0-10); HEMATOCRIT 38 % (35-52); HEMOGLOBIN 12.9 g/dL (11.5-16.0); LYMPHOCYTES # (AUTO) 1.5 10^3/uL (1.0-4.0); LYMPHOCYTES % (AUTO) 16 % (12-44); MEAN CORPUSCULAR HEMOGLOBIN 28 pg (25-34); MEAN CORPUSCULAR HGB CONC 34 g/dL (32-36); MEAN CORPUSCULAR VOLUME 82 fL (80-99); MEAN PLATELET VOLUME 9.6 fL (9.0-12.2); MONOCYTES # (AUTO) 0.4 10^3/uL (0.0-1.0); MONOCYTES % (AUTO) 4 % (0-12); NEUTROPHILS # (AUTO) 7.6 10^3/uL (1.8-7.8); NEUTROPHILS % (AUTO) 79 % (42-75); PLATELET COUNT 241 10^3/uL (130-400); WHITE BLOOD COUNT 9.6 10^3/uL (4.3-11.0)
[2020-09-19 17:29] LABS: BAND NEUTROPHILS 1 %; EOSINOPHILS % (MANUAL) 1 %; LYMPHOCYTES % (MANUAL) 16 %; MONOCYTES % (MANUAL) 6 %; NEUTROPHILS % (MANUAL) 76 %
[2020-09-19 17:30] LABS: RBC MORPH NORMAL
--- NOTE | 2020-09-19 17:32 | History & Physical ---
History and Physical Date Seen by Provider: September 19, 2020 Time Seen by Provider: 17:23 This patient is a 25-year-old multigravid white female patient of Dr. Hudson for whom I am covering. She presents at 17 weeks gestation with complaint of rupture membranes since noon today. She also reports a 2-week history of cramps pain and pressure. She reports spotting off and on for about a week. She reports that her 3 children were all born early. She denies fever or chills. She denies bowel or bladder complaints. Initial evaluation on labor and delivery was equivocal for rupture membranes however swab from the vagina showed fern positive eventually another swab showed nitrazine positive and an ultrasound shows no amniotic fluid with a breech presentation fetus that is viable. Allergies are to amoxicillin and the pertussis vaccine Medications are vitamins Medical social and surgical history is are per Dr. Hudson's records HEENT exam is normal. Patient is tearful Neck is supple with no lymphadenopathy no thyromegaly Abdomen is soft nontender nondistended Extremities show no clubbing or cyanosis. There is no Homans' sign. Pelvic exam is deferred Pelvic exam per the nurse showed a cervix that was closed and thick. Initial nitrazine and follow-up studies are as noted above essentially confirming rupture membranes. Lab work is as follows Laboratory Tests Test 09/19/20 15:25 09/19/20 16:04 Range/Units Amniotic Fluid Ferning Test POSITIVE NEGATIVE White Blood Count 9.6 4.3-11.0 10^3/uL Red Blood Count 4.66 3.80-5.11 10^6/uL Hemoglobin 12.9 11.5-16.0 g/dL Hematocrit 38 35-52 % Mean Corpuscular Volume 82 80-99 fL Mean Corpuscular Hemoglobin 28 25-34 pg Mean Corpuscular Hemoglobin Concent 34 32-36 g/dL Red Cell Distribution Width 13.4 10.0-14.5 % Platelet Count 241 130-400 10^3/uL Mean Platelet Volume 9.6 9.0-12.2 fL Immature Granulocyte % (Auto) 1 % Neutrophils (%) (Auto) 79 H 42-75 % Lymphocytes (%) (Auto) 16 12-44 % Monocytes (%) (Auto) 4 0-12 % Eosinophils (%) (Auto) 0 0-10 % Basophils (%) (Auto) 0 0-10 % Neutrophils # (Auto) 7.6 1.8-7.8 10^3/uL Lymphocytes # (Auto) 1.5 1.0-4.0 10^3/uL Monocytes # (Auto) 0.4 0.0-1.0 10^3/uL Eosinophils # (Auto) 0.0 0.0-0.3 10^3/uL Basophils # (Auto) 0.0 0.0-0.1 10^3/uL Immature Granulocyte # (Auto) 0.1 0.0-0.1 10^3/uL Neutrophils % (Manual) 76 % Lymphocytes % (Manual) 16 % Monocytes % (Manual) 6 % Eosinophils % (Manual) 1 % Band Neutrophils 1 % Blood Morphology Comment NORMAL Ultrasound report is in the chart Essentially viable fetus In a breech presentation with no significant amniotic fluid Assessment and plan 17-week with PPROM . We had a lengthy discussion regarding the survival implications for a at this point. Patient understands that a baby born at 17 weeks would have no chance for survival. We discussed management options being observation both inpatient and at home versus inpatient observation in Trendelenburg position for hope of fluid leak sealing and fluid reaccumulating. Patient is adamant and that she feels that the is already lost and wishes no supportive intervention at all including Trendelenburg or IV fluids or other management. Patient is asserting that she would prefer to go home and let things happen at home. I have indicated to the patient that I would advise against that however if that is her decision we would have her sign AMA and would be available for her care management should she decide to return regardless of the situation at that time. Patient indicated that she may have issues with transportation at which I suggested that if she is at home and has a problem 911 would get her here. Patient is considering her options at this point I have made Dr. Hudson aware of this patient 17-week with P PROM Allergies and Home Medications Allergies Coded Allergies: amoxicillin (Verified Allergy, Mild, rash, 09/19/20) pertussis vaccine,adsorbed (Verified Allergy, Unknown, 09/19/20) Home Medications Dibucaine 30 Gm Oint, 0 GM TOP UD PRN for PAIN- SEE INSTRUCTIONS Prescribed by: PARUL HUDSON on 01/17/19 0926 Docusate Sodium 100 Mg Capsule, 100 MG PO BID Prescribed by: PARUL HUDSON on 01/17/19925 Ferrous Sulfate 325 Mg Tablet, 325 MG PO DAILY Prescribed by: PARUL HUDSON on 01/17/19925 Hydrocodone Bit/Acetaminophen 1 Tab Tab, 1 TAB PO Q4H PRN for PAIN-MODERATE Prescribed by: PAURL HUDSON on 01/17/19925 Ibuprofen 600 Mg Tablet, 600 MG PO Q6HR Prescribed by: PARUL HUDSON on 01/17/19925 [Benzocaine/Menthol] 56 ML AEROSOL, 56 ML TP UD PRN for PAIN- SEE INSTRUCTIONS EXTERNAL USE ONLY Prescribed by: PARUL HUDSON on 01/17/19925 Patient Home Medication List Home Medication List Reviewed: Yes JOSEFA SAXENA MD September 19, 2020 17:32
[2020-09-21] MEDS ORDERED: ACET-93 PO (08:14)
[2020-09-21] MEDS ORDERED: METR500T PO (08:14)
[2020-09-21] MEDS ORDERED: DCS100C PO (08:14)
[2020-09-21] MEDS ORDERED: IBUP-844 PO (08:14)
[2020-09-21] MEDS ORDERED: CEPH500T PO (08:14)
[2020-09-21] MEDS ORDERED: ALPR0.25 PO (08:27)
[2020-09-21] MEDS ORDERED: VENL75CA93 PO (08:27)
== END 2020-09-19 18:00 | disposition home or self-care (01) ==
LOC: WSo 13:55 → LDRP 13:56 → WSo 18:00 → LDRP 19:25 → WSo 19:25
PROVIDERS: ATTEND Obstetrics & Gynecology
DX: O42.912 Preterm premature rupture of membranes, unspecified as to length of time between rupture and onset of labor, second trimester (principal); Z3A.17 17 weeks gestation of pregnancy
CPT/HCPCS: 76805; 85007; 85027; 87070; 87075; 87205; Q0114; 36415; 89060

== ENCOUNTER 2020-09-20 07:48 | Inpatient (IN) | payer MEDICAID ==
[~2020-09-20] VITALS: Ht 165.1 cm; Wt 78.0 kg
[2020-09-20] VITALS (30 sets, daily range): BP systolic 72–154; BP diastolic 35–61
[2020-09-20] MEDS ORDERED: ONDANSETRON 4 MG/2 ML (SDV) Z0FRAN IVP ONE (08:00)
[2020-09-20] MEDS ORDERED: LACTATED RINGERS 1,000 ML IV ONE (08:00)
--- NOTE | 2020-09-20 08:06 | ED GU-Female ---
General Chief Complaint: OB > 20 WEEKS Stated Complaint: CONTRACTIONS Source: patient Exam Limitations: no limitations History of Present Illness Date Seen by Provider: September 20, 2020 Time Seen by Provider: 07:48 Initial Comments Patient presents ER by EMS from home with chief complaint she is continuing to have some contractions little bloody show and had a spontaneous rupture of membranes yesterday. She was seen and admitted by Dr. Phan but decided to leave AMA. She decided her contractions were worse so she want to come back and to help manage them. She is been having nausea and vomiting all day. She is not sure how far apart her contractions are they are mostly in her low back. EMS reports normal vital signs and she was able to walk to the cot. Allergies and Home Medications Allergies Coded Allergies: amoxicillin (Verified Allergy, Mild, rash, 09/19/20) pertussis vaccine,adsorbed (Verified Allergy, Unknown, 09/19/20) Home Medications Dibucaine 30 Gm Oint, 0 GM TOP UD PRN for PAIN- SEE INSTRUCTIONS Prescribed by: PARUL HUDSON on 01/17/19925 Docusate Sodium 100 Mg Capsule, 100 MG PO BID Prescribed by: PARUL HUDSON on 01/17/19925 Ferrous Sulfate 325 Mg Tablet, 325 MG PO DAILY Prescribed by: PARUL HUDSON on 01/17/19925 Hydrocodone Bit/Acetaminophen 1 Tab Tab, 1 TAB PO Q4H PRN for PAIN-MODERATE Prescribed by: PARUL HUDSON on 01/17/19925 Ibuprofen 600 Mg Tablet, 600 MG PO Q6HR Prescribed by: PARUL HUDSON on 01/17/19925 [Benzocaine/Menthol] 56 ML AEROSOL, 56 ML TP UD PRN for PAIN- SEE INSTRUCTIONS EXTERNAL USE ONLY Prescribed by: PARUL HUDSON on 01/17/19925 Patient Home Medication List Home Medication List Reviewed: Yes Review of Systems Review of Systems Constitutional: No chills, No malaise Respiratory: No cough, No short of breath Cardiovascular: No chest pain, No Hx of Intervention Gastrointestinal: abdominal pain; No constipation, No diarrhea; nausea, vomiting : Yes Musculoskeletal: back pain; No joint pain All Other Systemes Reviewed Negative Unless Noted: Yes Past Fczwrpp-Lyvmdy-Vqlowr Hx Patient Social History Alcohol Use: Denies Use Smoking Status: Never a Smoker 2nd Hand Smoke Exposure: No Recent Hopitalizations: No Immunizations Up To Date Tetanus Booster (TDap): More than 5yrs PED Vaccines UTD: No Seasonal Allergies Seasonal Allergies: No Past Medical History Surgeries: Yes (RIGHT BREAST BIOPSY) Breast Respiratory: No Cardiac: No Neurological: No Reproductive Disorders: Yes Sexually Transmitted Disease: Yes (chlamydia 02/2015) HIV/AIDS: No Genitourinary: No Gastrointestinal: Yes Gastroesophageal Reflux Musculoskeletal: No Endocrine: No HEENT: No Cancer: No Psychosocial: Yes Anxiety, Depression Integumentary: No Blood Disorders: No Adverse Reaction/Blood Tranf: No Family Medical History Patient reports no known family medical history. Physical Exam Vital Signs Capillary Refill : Height, Weight, BMI Height: 5'5.00" Weight: 184lbs. 6.0oz. 83.353723ja; 28.83 BMI Method:Stated General Appearance: WD/WN, mild distress HEENT: PERRL/EOMI; No pharynx normal (Oropharynx mild dry) Neck: full range of motion, normal inspection Cardiovascular: normal peripheral pulses, regular rate, rhythm Respiratory: no respiratory distress, no accessory muscle use Gastrointestinal: soft, other (Gravid) Neurologic/Psychiatric: alert, normal mood/affect, oriented x 3 Skin: normal color, warm/dry Progress/Results/Core Measures Suspected Sepsis SIRS Temperature: Pulse: Respiratory Rate: Blood Pressure / Mean: Results/Orders My Orders Orders - PARKER MCRAE Cbc With Automated Diff (09/20/20 07:52) Basic Metabolic Panel (09/20/20 07:52) Lactated Ringers (Lr 1000 Ml Iv Solution (09/20/20 08:00) Ed Iv/Invasive Line Start (09/20/20 07:52) Abo Rh Type (09/20/20 07:52) Ondansetron Injection (Zofran Injectio (09/20/20 08:00) Vital Signs/I&O Capillary Refill : Progress Note : Time: 08:02 Progress Note Discussed case with Dr. Hudson her primary OB provider and he agrees to observe the patient and help her manage her miscarriage. We will give her ondansetron 4 mg and a liter of lactated Ringer's and check some basic labs. Departure Communication (Admissions) Time/Spoke to Admitting Phy: 07:[address] Hudson and he agrees to observe the patient. Impression Primary Impression: 17 weeks gestation of Additional Impressions: Spontaneous rupture of membranes Incomplete miscarriage Disposition: 01 HOME, SELF-CARE Condition: Stable Admissions Decision to Admit Reason: Admit from ER (General) Decision to Admit/Date: September 20, 2020 Time/Decision to Admit Time: 07:50 Departure-Patient Inst. Referrals: PARUL HUDSON DO (PCP/Family) Primary Care Physician PARKER MCRAE September 20, 2020 08:05
[2020-09-20 08:13] LABS: BASOPHILS % (AUTO) 0 % (0-10); EOSINOPHILS % (AUTO) 0 % (0-10); HEMATOCRIT 35 % (35-52); HEMOGLOBIN 12.3 g/dL (11.5-16.0); LYMPHOCYTES # (AUTO) 0.6 10^3/uL (1.0-4.0); LYMPHOCYTES % (AUTO) 4 % (12-44); MEAN CORPUSCULAR HEMOGLOBIN 28 pg (25-34); MEAN CORPUSCULAR HGB CONC 35 g/dL (32-36); MEAN CORPUSCULAR VOLUME 80 fL (80-99); MEAN PLATELET VOLUME 9.2 fL (9.0-12.2); MONOCYTES # (AUTO) 0.9 10^3/uL (0.0-1.0); MONOCYTES % (AUTO) 6 % (0-12); NEUTROPHILS # (AUTO) 14.2 10^3/uL (1.8-7.8); NEUTROPHILS % (AUTO) 89 % (42-75); PLATELET COUNT 203 10^3/uL (130-400); WHITE BLOOD COUNT 15.9 10^3/uL (4.3-11.0)
[2020-09-20 08:20] LABS: CHLORIDE 106 MMOL/L (98-107); POTASSIUM 3.4 MMOL/L (3.6-5.0); SODIUM 135 MMOL/L (135-145)
[2020-09-20 08:21] LABS: CALCIUM 8.5 MG/DL (8.5-10.1)
[2020-09-20 08:22] LABS: GLUCOSE 103 MG/DL (70-105)
[2020-09-20 08:23] LABS: CARBON DIOXIDE 18 MMOL/L (21-32)
[2020-09-20 08:26] LABS: BUN/CREATININE RATIO 16; CREATININE SERUM 0.64 MG/DL (0.60-1.30); GFR ESTIMATED > 60
[2020-09-20 08:38] LABS: BAND NEUTROPHILS 4 %; BASOPHILS % (MANUAL) 0 %; EOSINOPHILS % (MANUAL) 0 %; LYMPHOCYTES % (MANUAL) 4 %; MONOCYTES % (MANUAL) 4 %; NEUTROPHILS % (MANUAL) 88 %; RBC MORPH NORMAL
[2020-09-20] MEDS ORDERED: AZITHROMYCIN INJECTION 500 MG in NS (IVPB) 250 ML IV SCH (09:00)
[2020-09-20] MEDS: ceFAZolin 2 GM IV Premixed 50 ML IV SCH ×2 (09:16→17:07)
[2020-09-20] MEDS ORDERED: D5 LR IV SOLUTION 1,000 ML IV SCH (10:15)
--- NOTE | 2020-09-20 10:15 | Diagnostic Imaging Report ---
INDICATION: Oligohydramnios. No heart tone recorded today. FINDINGS: There is intrauterine fetus which is in breech presentation. There is no amniotic fluid. Real-time imaging shows no cardiac activity. M-mode shows no evidence of cardiac waveform. Cervical length is 3.9 cm. Maternal adnexa not visualized. IMPRESSION: Limited exam showing demise. Dictated by: Dictated on workstation # [id number]
[2020-09-20] MEDS ORDERED: ACETAMINOPHEN 500 MG TAB (TYLENOL) PO PRN (10:30)
[2020-09-20] MEDS: HYDROmorphone 2 MG/ML VIAL (DILAUDID) IV PRN ×2 (10:45→13:58)
[2020-09-20] MEDS ORDERED: OXYTOCIN PRE-MIX DRIP 500 ML IV ONE ×2 (14:39→15:00)
--- NOTE | 2020-09-20 15:36 | History & Physical-OB ---
OB - Chief Complaint & HPI Date/Time Date of Admission: Date of Admission: September 20, 2020 at 08:00 Date seen by a Provider: September 20, 2020 Time Seen by a Provider: 15:00 Chief Complaint/History Hx : 10 Hx Para: 3 Expected Date of Delivery: Feb 26, 2021 Gestational Age in Weeks: 17 Gestational Age in Days: 2 Other reason for admission: Patient presented yesterday with SROM at 17 weeks, was admitted for Observation, however left ama. At time of yesterday evaluation, heart activity was noted. Today on readmission, no cardiac activity noted. She also report chills, and cramping. Admission Nurse Assessment Rev: Yes Allergies and Home Medications Allergies Coded Allergies: amoxicillin (Verified Allergy, Mild, rash, 09/19/20) pertussis vaccine,adsorbed (Verified Allergy, Unknown, 09/19/20) Home Medications Dibucaine 30 Gm Oint, 0 GM TOP UD PRN for PAIN- SEE INSTRUCTIONS Prescribed by: PARUL HUDSON on 01/17/19925 Docusate Sodium 100 Mg Capsule, 100 MG PO BID Prescribed by: PARUL HUDSON on 01/17/19925 Ferrous Sulfate 325 Mg Tablet, 325 MG PO DAILY Prescribed by: PARUL HUDSON on 01/17/19925 Hydrocodone Bit/Acetaminophen 1 Tab Tab, 1 TAB PO Q4H PRN for PAIN-MODERATE Prescribed by: PARUL HUDSON on 01/17/19925 Ibuprofen 600 Mg Tablet, 600 MG PO Q6HR Prescribed by: PARUL HUDSON on 01/17/19925 [Benzocaine/Menthol] 56 ML AEROSOL, 56 ML TP UD PRN for PAIN- SEE INSTRUCTIONS EXTERNAL USE ONLY Prescribed by: PARUL HUDSON on 01/17/19925 Patient Home Medication List Home Medication List Reviewed: Yes OB - History Hx of Present Care: Yes Obstetrical Complications: None Medical Complications: None Obstetrical History Hx : 10 Hx Para: 3 Hx Termination: Yes Hx Multiple Gestation: No Hx Stillbirth: No Hx Complication: No Hx Induced Hypertens: No Hx Maternal Gestational Diabet: No Delivery History Hx Dystocia: No Hx Large For Gestational Age I: No Hx Small for Gestational Age I: No Hx Section: No Hx Vaginal Delivery Post C-Sec: No Hx Blood Disorders: No Adverse Rxn to Tranfusion: No Patient Past Medical History PMHx: depression Social History/Family History Alcohol Use: Denies Use Recreational Drug Use: No 2nd Hand Smoke Exposure: No Immunizations Hepatitis A: Yes Hepatitis B: Yes Tetanus Booster (TDap): More than 5yrs OB - Admission Exam Physical Exam Vitals: Vital Signs 09/20/20 12:37 Temp 39.2 Pulse 123 Resp 22 B/P (MAP) 121/55 (77) Pulse Ox 100 O2 Delivery Room Air HEENT: NCAT Heart: Rhythm Normal Lungs: Clear Abdomen: Gravid Extremities: Normal Reflexes: Normal Cervical Dilatation: 1cm Effacement: 50% Station: -3 Membranes: Ruptured Amniotic Fluid: Clear Labs Laboratory Tests Test 09/20/20 08:00 Range/Units White Blood Count 15.9 H 4.3-11.0 10^3/uL Red Blood Count 4.38 3.80-5.11 10^6/uL Hemoglobin 12.3 11.5-16.0 g/dL Hematocrit 35 35-52 % Mean Corpuscular Volume 80 80-99 fL Mean Corpuscular Hemoglobin 28 25-34 pg Mean Corpuscular Hemoglobin Concent 35 32-36 g/dL Red Cell Distribution Width 13.2 10.0-14.5 % Platelet Count 203 130-400 10^3/uL Mean Platelet Volume 9.2 9.0-12.2 fL Immature Granulocyte % (Auto) 1 % Neutrophils (%) (Auto) 89 H 42-75 % Lymphocytes (%) (Auto) 4 L 12-44 % Monocytes (%) (Auto) 6 0-12 % Eosinophils (%) (Auto) 0 0-10 % Basophils (%) (Auto) 0 0-10 % Neutrophils # (Auto) 14.2 H 1.8-7.8 10^3/uL Lymphocytes # (Auto) 0.6 L 1.0-4.0 10^3/uL Monocytes # (Auto) 0.9 0.0-1.0 10^3/uL Eosinophils # (Auto) 0.0 0.0-0.3 10^3/uL Basophils # (Auto) 0.0 0.0-0.1 10^3/uL Immature Granulocyte # (Auto) 0.1 0.0-0.1 10^3/uL Neutrophils % (Manual) 88 % Lymphocytes % (Manual) 4 % Monocytes % (Manual) 4 % Eosinophils % (Manual) 0 % Basophils % (Manual) 0 % Band Neutrophils 4 % Blood Morphology Comment NORMAL Sodium Level 135 135-145 MMOL/L Potassium Level 3.4 L 3.6-5.0 MMOL/L Chloride Level 106 98-107 MMOL/L Carbon Dioxide Level 18 L 21-32 MMOL/L Anion Gap 11 5-14 MMOL/L Blood Urea Nitrogen 10 7-18 MG/DL Creatinine 0.64 0.60-1.30 MG/DL Estimat Glomerular Filtration Rate > 60 BUN/Creatinine Ratio 16 Glucose Level 103 70-105 MG/DL Calcium Level 8.5 8.5-10.1 MG/DL OB - Assessment/Plan/Diagnosis Assessment Admission Dx 25 yo @ 17.2 demise Acute chorioamnionitis Admission Status: Observation Reason for Inpatient Admission: 17.2 week demise Plan Other Plan Patient admitted for delivery of stillbirth 17 weeks Started on Ancef and Azithromycin Cytotec started PARUL HUDSON DO September 20, 2020 15:36
--- NOTE | 2020-09-20 15:43 | OB Labor & Delivery Record ---
L&D History Date of Service Date of Service: September 20, 2020 History Expected Date of Delivery: Feb 26, 2021 Gestational Age in Weeks: 17 Hx : 10 Hx Para: 3 Complications Operative Indications (Cesarea: demise Intrapartal Events: None L&D Stage1 Stage One Onset of Labor - Date: September 20, 2020 Monitors and Tracing Heart Rate: 0 Vital Signs VS - Last 72 Hours, by Label 09/20/20 09/20/20 09/20/20 09/20/20 07:48 08:19 08:33 08:33 Temp 36.5 38.5 38.5 Pulse 102 110 120 120 Resp 18 18 24 24 B/P (MAP) 133/81 (98) 104/45 98/54 (69) Pulse Ox 98 98 100 100 O2 Delivery Room Air Room Air Room Air Room Air 09/20/20 09/20/20 09/20/20 09/20/20 09:20 10:44 10:56 11:11 Temp 38.1 39.0 Pulse 121 113 112 Resp 24 22 22 B/P (MAP) 104/54 (71) 95/50 (65) 112/55 (74) Pulse Ox 100 O2 Delivery Room Air Room Air Room Air 09/20/20 09/20/20 09/20/20 09/20/20 11:31 11:46 11:49 12:00 Temp 39.4 Pulse 122 117 117 122 Resp 24 24 24 24 B/P (MAP) 102/50 (67) 93/44 (60) 97/51 (66) 102/51 (68) Pulse Ox 100 100 100 O2 Delivery Room Air Room Air Room Air Room Air 09/20/20 09/20/20 09/20/20 12:33 12:34 12:37 Temp 39.2 Pulse 114 122 123 Resp 24 24 22 B/P (MAP) 72/35 (47) 86/43 (57) 121/55 (77) Pulse Ox 100 O2 Delivery Room Air Room Air Room Air Rupture of Membranes Spontaneous Ruture of Membrane: Yes Vaginal Bleeding Description: Normal Show Progress/Notes Patient given 600 mcg PO misoprostol which ilicited cramping/contracton pattern to allow for vaginal delivery of intact demised 17 week fetus. L&D Stage2 Episiotomy/Perineal Laceration Laceraction(s)/Extensions: No Condition of Infant Condition of Condition of : Stillborn L&D Stage3 Stage Three Stage III Date: September 20, 2020 Pictocin Pitocin Administration Comment: 30 mu wide open IV pitocin started. Placenta Delivery Placenta Delivery: Spontaneous Delivery Summary Summary Estimated blood loss (mL): 150 Attending at delivery: Parul Hudson DO Condition of Delivery Examined: Cervix Examined, Uterus Explored Post Hemorrhage: No Condition of Mother stable PARUL HUDSON DO September 20, 2020 15:43
[2020-09-20] MEDS ORDERED: MEASLES,MUMPS,RUBELLA 1 EA INJ SQ ONE (15:45)
[2020-09-20] MEDS ORDERED: BENZOCAINE/MENTHOL (DERMOPLAST) 56 ML CAN TP PRN (15:45)
[2020-09-20] MEDS ORDERED: KETOROLAC 30 MG/ML VIAL ONE (16:17)
[2020-09-20] MEDS: KETOROLAC 30 MG/ML VIAL IVP SCH ×2 (16:28→23:02)
[2020-09-20] MEDS: ACETAMINOPHEN 500 MG TAB (TYLENOL) PO SCH (20:56)
[2020-09-20] MEDS: DOCUSATE SODIUM 100 MG (COLACE) CAP PO SCH (20:56)
[2020-09-20] MEDS ORDERED: ZOLPIDEM 5 MG (AMBIEN) TAB PO SCH (21:00)
[2020-09-20] MEDS ORDERED: CATHETER FLUSH 10 ML SYR IV SCH (22:00)
[2020-09-21] MEDS: ceFAZolin 2 GM IV Premixed 50 ML IV SCH (00:51)
[2020-09-21 00:55] VITALS: BP 107/55
[2020-09-21 05:01] VITALS: BP 86/49
[2020-09-21] MEDS: KETOROLAC 30 MG/ML VIAL IVP SCH (05:01)
[2020-09-21 06:15] LABS: BASOPHILS % (AUTO) 0 % (0-10); EOSINOPHILS # (AUTO) 0.1 10^3/uL (0.0-0.3); EOSINOPHILS % (AUTO) 1 % (0-10); HEMATOCRIT 32 % (35-52); HEMOGLOBIN 10.7 g/dL (11.5-16.0); LYMPHOCYTES # (AUTO) 1.7 10^3/uL (1.0-4.0); LYMPHOCYTES % (AUTO) 10 % (12-44); MEAN CORPUSCULAR HEMOGLOBIN 28 pg (25-34); MEAN CORPUSCULAR HGB CONC 34 g/dL (32-36); MEAN CORPUSCULAR VOLUME 84 fL (80-99); MEAN PLATELET VOLUME 9.5 fL (9.0-12.2); MONOCYTES # (AUTO) 0.8 10^3/uL (0.0-1.0); MONOCYTES % (AUTO) 5 % (0-12); NEUTROPHILS # (AUTO) 13.8 10^3/uL (1.8-7.8); NEUTROPHILS % (AUTO) 82 % (42-75); PLATELET COUNT 171 10^3/uL (130-400); WHITE BLOOD COUNT 16.8 10^3/uL (4.3-11.0)
[2020-09-21] MEDS ORDERED: METR500T PO (08:14)
[2020-09-21] MEDS ORDERED: CEPH500T PO (08:14)
[2020-09-21] MEDS ORDERED: ACET-93 PO (08:14)
[2020-09-21] MEDS ORDERED: DCS100C PO (08:14)
[2020-09-21] MEDS ORDERED: IBUP-844 PO (08:14)
--- NOTE | 2020-09-21 08:17 | Discharge Inst-Women's Service ---
Discharge Inst-Women's Serv Depart Medication/Instructions New, Converted or Re-Newed RX: RX on Chart Problems Reviewed?: Yes Consults/Follow Up Additional Follow Up: Yes Activity Activity: Activity as Tolerated Driving Instructions: No Driving for 1 Week NO SMOKING: NO SMOKING Nothing Inside Vagina: No Douching, No [place], No Tampons Diet Discharge Diet: No Restrictions Symptoms to Report to : Bleeding Excessive, Pain Increased, Fever Over 101 Degrees F, Vaginal Bleeding Increase, Questions/Concerns For Any Problems or Questions: Contact Your Physician PARUL HUDSON DO September 21, 2020 08:17
[2020-09-21] MEDS ORDERED: ALPR0.25 PO (08:27)
[2020-09-21] MEDS ORDERED: VENL75CA93 PO (08:27)
--- NOTE | 2020-09-21 08:28 | Progress Note ---
Standard Progress Note Progress Notes/Assess & Plan Date Seen by a Provider: September 21, 2020 Time Seen by a Provider: 08:15 Progress/Assessment & Plan Patient afebrile overnight, doing well this AM. She is wanting to go home this morning. Vital Signs 09/21/20 05:01 Temp 36.2 Pulse 65 Resp 18 B/P (MAP) 86/49 (61) Pulse Ox 99 O2 Delivery Room Air Laboratory Tests Test 09/21/20 06:04 Range/Units White Blood Count 16.8 H 4.3-11.0 10^3/uL Red Blood Count 3.78 L 3.80-5.11 10^6/uL Hemoglobin 10.7 L 11.5-16.0 g/dL Hematocrit 32 L 35-52 % Mean Corpuscular Volume 84 80-99 fL Mean Corpuscular Hemoglobin 28 25-34 pg Mean Corpuscular Hemoglobin Concent 34 32-36 g/dL Red Cell Distribution Width 13.8 10.0-14.5 % Platelet Count 171 130-400 10^3/uL Mean Platelet Volume 9.5 9.0-12.2 fL Immature Granulocyte % (Auto) 1 % Neutrophils (%) (Auto) 82 H 42-75 % Lymphocytes (%) (Auto) 10 L 12-44 % Monocytes (%) (Auto) 5 0-12 % Eosinophils (%) (Auto) 1 0-10 % Basophils (%) (Auto) 0 0-10 % Neutrophils # (Auto) 13.8 H 1.8-7.8 10^3/uL Lymphocytes # (Auto) 1.7 1.0-4.0 10^3/uL Monocytes # (Auto) 0.8 0.0-1.0 10^3/uL Eosinophils # (Auto) 0.1 0.0-0.3 10^3/uL Basophils # (Auto) 0.0 0.0-0.1 10^3/uL Immature Granulocyte # (Auto) 0.2 H 0.0-0.1 10^3/uL Diagnosis: PPD 1 17 week stillbirth vaginal delivery P: Continue antibiotics Follow up in one week PARUL HUDSON DO September 21, 2020 08:28
[2020-09-21] MEDS ORDERED: metroNIDAZOLE 500 MG (FLAGYL) TAB PO SCH (09:00)
[2020-09-21 09:30] VITALS: BP 103/55
[2020-09-21] MEDS ORDERED: IBUPROFEN 600 MG (MOTRIN) TAB PO ONE ×2 (10:07→10:15)
[2020-09-21] MEDS: ACETAMINOPHEN 500 MG TAB (TYLENOL) PO SCH (10:07)
[2020-09-21] MEDS: DOCUSATE SODIUM 100 MG (COLACE) CAP PO SCH (10:07)
[2020-09-21] MEDS ORDERED: IBUPROFEN 600 MG (MOTRIN) TAB PO SCH (10:15)
[2020-09-21] MEDS: CEPHALEXIN 250 MG (KEFLEX) CAP PO SCH ×2 (10:17→13:07)
[2020-09-21 13:25] VITALS: BP 103/55
[2020-09-25] MEDS ORDERED: IBUPROFEN 600 MG (MOTRIN) TAB PO SCH (16:30)
== END 2020-09-21 13:25 | disposition home or self-care (01) | DRG 805 ==
LOC: EDUNIT# 07:48 → ER 07:50 → LDRP 08:00 → OBSVTOIN 08:30 → LDRP 21:09
PROVIDERS: ADMIT Obstetrics & Gynecology; ATTEND Obstetrics & Gynecology
PROC: 10E0XZZ Delivery of Products of Conception, External Approach (ICD-10-PCS; principal; 2020-09-20)
DX: O02.1 Missed abortion (principal); O41.1220 Chorioamnionitis, second trimester, not applicable or unspecified; Z37.1 Single stillbirth; Z3A.17 17 weeks gestation of pregnancy
CPT/HCPCS: 36415; 76815; 80048; 85007; 85025; 85027; 86900; 86901; 87070; 87075; 87077; 87186; 87205

== ENCOUNTER 2021-10-27 09:51 | Outpatient (CLI) | payer SELFPAY ==
[~2021-10-27] VITALS: Ht 165.1 cm; Wt 83.1 kg
[~2021-10-27 09:51] MED LIST changes: +ACET-93 PO; +ALPR0.25 PO; +CEPH500T PO; +DOCU-239 PO; +METR500T PO; +VENL75CA93 PO
[2021-10-27 10:15] VITALS: BP 132/80
[2021-10-27 10:25] LABS: BILIRUBIN,URINE NEGATIVE (NEGATIVE); CLARITY,URINE CLEAR; COLOR,URINE YELLOW; GLUCOSE, URINE (UA) NEGATIVE (NEGATIVE); KETONES,URINE NEGATIVE (NEGATIVE); LEUKOCYTE ESTERASE ,URINE NEGATIVE (NEGATIVE); NITRITE,URINE NEGATIVE (NEGATIVE); PROTEIN,URINE TRACE (NEGATIVE)
[2021-10-27 10:35] LABS: BACTERIA,URINE TRACE /HPF; HYALINE CASTS, URINE 0-2 /LPF; WBC,URINE 0-2 /HPF
[2021-10-27] MEDS ORDERED: D5 LR IV SOLUTION 1,000 ML IV SCH (11:15)
--- NOTE | 2021-10-27 11:55 | Diagnostic Imaging Report ---
Indication: Clinical suspicion for premature rupture of membranes. FINDINGS: A Mckoy intrauterine gestation in cephalic position. The amniotic fluid index is a 8.4 cm. There was fluid within within each pocket, the largest vertical pocket measuring 3.5 cm. The placenta eccentric to the right and posterior with no abruption or previa. heart rate 130 bpm. Cervical evaluation is limited on a technical basis. The os appeared closed. The precise length cannot be ascertained. IMPRESSION: Amniotic fluid index 8.4. Mckoy viable IUP is in cephalic position measuring 35 weeks 5 days. Dictated by: Dictated on workstation # [id number]
--- NOTE | 2021-10-30 08:51 | Physician Query-Final Dx ---
Clinic Account Progress/Dx Physician Query: Please give diagnosis Please include # weeks gestation Date of Service Oct 27, 2021 at 09:51 JAVIER,MayOct 30, 2021 08:51
== END 2021-10-27 14:14 | disposition home or self-care (01) ==
LOC: WSo 09:51 → LDRP 09:51 → WSo 14:14
PROVIDERS: ATTEND Family Medicine
DX: O26.853 Spotting complicating pregnancy, third trimester (principal); Z3A.35 35 weeks gestation of pregnancy
CPT/HCPCS: 76815; 81000; 84112; 96360; 96361; G0463; 99214

== ENCOUNTER 2021-10-30 13:31 | Outpatient (CLI) | payer SELFPAY ==
[~2021-10-30] VITALS: Ht 165 cm; Wt 83.4 kg
[2021-10-30 13:30] VITALS: BP 127/73
[2021-10-30 13:45] VITALS: BP 127/73
[2021-10-30] MEDS ORDERED: PREN1TAB19 PO (15:08)
[2021-10-30] MEDS ORDERED: ACET-3075 PO (15:08)
[2021-10-30] MEDS ORDERED: MINERAL OIL 30 ML TOP PRN (16:00)
[2021-10-30] MEDS ORDERED: D5 LR IV SOLUTION 1,000 ML IV SCH (16:00)
[2021-10-30 16:40] LABS: BASOPHILS % (AUTO) 0 % (0-10); EOSINOPHILS # (AUTO) 0.1 10^3/uL (0.0-0.3); EOSINOPHILS % (AUTO) 1 % (0-10); HEMATOCRIT 36 % (35-52); HEMOGLOBIN 12.2 g/dL (11.5-16.0); LYMPHOCYTES # (AUTO) 2.1 10^3/uL (1.0-4.0); LYMPHOCYTES % (AUTO) 19 % (12-44); MEAN CORPUSCULAR HEMOGLOBIN 28 pg (25-34); MEAN CORPUSCULAR HGB CONC 34 g/dL (32-36); MEAN CORPUSCULAR VOLUME 83 fL (80-99); MEAN PLATELET VOLUME 9.5 fL (9.0-12.2); MONOCYTES # (AUTO) 0.6 10^3/uL (0.0-1.0); MONOCYTES % (AUTO) 6 % (0-12); NEUTROPHILS % (AUTO) 74 % (42-75); PLATELET COUNT 196 10^3/uL (130-400); WHITE BLOOD COUNT 10.8 10^3/uL (4.3-11.0)
[2021-10-30] MEDS ORDERED: BETAMETHASONE ACE/NA PHOS 6 MG/ML (CELESTONE SOLUSPAN) IM SCH (17:00)
[2021-10-30 17:30] VITALS: BP 119/57
[2021-10-30] MEDS ORDERED: CATHETER FLUSH 10 ML SYR IV SCH (22:00)
--- NOTE | 2021-10-31 08:34 | Physician Query-Final Dx ---
Clinic Account Progress/Dx Physician Query: Please give diagnosis Please include # weeks gestation Date of Service Oct 30, 2021 at 13:31 ,MayOct 31, 2021 08:34
== END 2021-10-30 19:20 | disposition home or self-care (01) ==
LOC: WSo 13:31 → LDRP 13:32 → WSo 19:20
PROVIDERS: ATTEND Family Medicine
DX: O62.9 Abnormality of forces of labor, unspecified (principal); Z3A.36 36 weeks gestation of pregnancy
CPT/HCPCS: 36415; 85025; 86850; 86900; 86901; 96360; 96372; 99213

== ENCOUNTER 2021-10-31 16:31 | Outpatient (CLI) | payer SELFPAY ==
[~2021-10-31 16:31] MED LIST changes: +ACET-3075 PO; +PREN1TAB19 PO
[2021-10-31] MEDS ORDERED: BETAMETHASONE ACE/NA PHOS 6 MG/ML (CELESTONE SOLUSPAN) IM ONE ×2 (17:00→17:30)
[2021-11-04] MEDS ORDERED: IBUP-844 PO (11:44)
[2021-11-04] MEDS ORDERED: DOCU100C37 PO (11:44)
== END 2021-10-31 18:00 | disposition home or self-care (01) ==
LOC: WSo 16:31
PROVIDERS: ATTEND Family Medicine
DX: O47.03 False labor before 37 completed weeks of gestation, third trimester (principal)
CPT/HCPCS: 96372

== ENCOUNTER 2021-11-02 12:16 | Inpatient (IN) | payer SELFPAY ==
[2021-11-02] VITALS (36 sets, daily range): BP systolic 101–144; BP diastolic 52–96
[~2021-11-02] VITALS: Ht 165.1 cm; Wt 84.0 kg
[2021-11-02] MEDS ORDERED: MINERAL OIL 30 ML TOP PRN (13:45)
[2021-11-02] MEDS ORDERED: D5 LR IV SOLUTION 1,000 ML IV SCH (13:45)
[2021-11-02] MEDS ORDERED: OXYTOCIN PRE-MIX DRIP 500 ML IV SCH ×2 (13:45→21:00)
[2021-11-02] MEDS ORDERED: CATHETER FLUSH 10 ML SYR IV SCH ×2 (14:00→22:00)
[2021-11-02 14:15] LABS: BASOPHILS % (AUTO) 0 % (0-10); EOSINOPHILS % (AUTO) 0 % (0-10); HEMATOCRIT 38 % (35-52); HEMOGLOBIN 12.7 g/dL (11.5-16.0); LYMPHOCYTES # (AUTO) 2.4 10^3/uL (1.0-4.0); LYMPHOCYTES % (AUTO) 21 % (12-44); MEAN CORPUSCULAR HEMOGLOBIN 28 pg (25-34); MEAN CORPUSCULAR HGB CONC 34 g/dL (32-36); MEAN CORPUSCULAR VOLUME 83 fL (80-99); MEAN PLATELET VOLUME 9.8 fL (9.0-12.2); MONOCYTES # (AUTO) 0.9 10^3/uL (0.0-1.0); MONOCYTES % (AUTO) 8 % (0-12); NEUTROPHILS % (AUTO) 70 % (42-75); PLATELET COUNT 204 10^3/uL (130-400); WHITE BLOOD COUNT 11.5 10^3/uL (4.3-11.0)
--- NOTE | 2021-11-02 15:03 | History & Physical-OB ---
OB - Chief Complaint & HPI Date/Time Date of Admission: Date of Admission: Nov 02, 2021 at 13:30 Date seen by a Provider: Nov 02, 2021 Time Seen by a Provider: 15:00 Chief Complaint/History OB-Reason for Admission/Chief: Rupture of Membranes Hx : 3 Hx Para: 2 Expected Date of Delivery: Nov 27, 2021 Gestational Age in Weeks: 36 Gestational Age in Days: 3 Admission Nurse Assessment Rev: Yes History of Labs GBS negative Allergies and Home Medications Allergies Coded Allergies: amoxicillin (Verified Allergy, Mild, rash, 09/19/20) pertussis vaccine,adsorbed (Verified Allergy, Unknown, 09/19/20) Patient Home Medication List Home Medication List Reviewed: Yes Acetaminophen/Diphenhydramine (Tylenol Pm Ex-Strength Caplet) 500 Mg-25 Mg Tablet, 1 EACH PO PRN, (Reported) Entered as Reported by: KEITH KITCHEN on 10/30/211507 Last Action: Converted Vit/Iron Fumarate/FA ( Vitamins Tablet) 28 Mg Iron-800 Mcg Tablet, 1 EACH PO DAILY, (Reported) Entered as Reported by: KEITH KITCHEN on 10/30/211507 Last Action: Converted Discontinued Medications Acetaminophen (Acetaminophen) 500 Mg Tablet, 1,000 MG PO Q8HR Discontinued Reason: No Longer Taking Prescribed by: PARUL HUDSON on 09/21/20813 Alprazolam (Xanax) 0.25 Mg Tablet, 0.25 MG PO TID PRN for ANXIETY Discontinued Reason: No Longer Taking Prescribed by: PARUL HUDSON on 09/21/20826 Cephalexin (Cephalexin) 500 Mg Tablet, 500 MG PO QID Discontinued Reason: No Longer Taking Prescribed by: PARUL HUDSON on 09/21/20813 Docusate Sodium (Dok) 100 Mg Capsule, 100 MG PO BID PRN for CONSTIPATION-1ST LINE Discontinued Reason: No Longer Taking Prescribed by: PARUL HUDSON on 09/21/20813 Ibuprofen (Ibu) 600 Mg Tablet, 600 MG PO Q6H Discontinued Reason: No Longer Taking Prescribed by: PARUL HUDSON on 09/21/20813 Metronidazole (Flagyl) 500 Mg Tablet, 500 MG PO BID Discontinued Reason: No Longer Taking Prescribed by: PARUL HUDSON on 09/21/20813 Venlafaxine HCl (Venlafaxine HCl ER) 75 Mg Cap.er.24h, 75 MG PO DAILY Discontinued Reason: No Longer Taking Prescribed by: PARUL HUDSON on 09/21/20 1537 OB - History Hx of Present Care: Yes Ultrasounds: Normal mid trimester US Obstetrical Complications: Other ( labor) Medical Complications: None Obstetrical History Hx Termination: Yes Hx Multiple Gestation: No Hx Stillbirth: No Hx Complication: No Hx Induced Hypertens: No Hx Maternal Gestational Diabet: No Delivery History Hx Dystocia: No Hx Large For Gestational Age I: No Hx Small for Gestational Age I: No Hx Section: No Hx Vaginal Delivery Post C-Sec: No Hx Blood Disorders: No Adverse Rxn to Tranfusion: No Patient Past Medical History PMHx: depression Social History/Family History 2nd Hand Smoke Exposure: No Immunizations Influenza Vaccine Up-to-Date: No; Not Current Hepatitis A: Yes Hepatitis B: Yes Tetanus Booster (TDap): More than 5yrs OB - Admission Exam Physical Exam HEENT: Moist Membranes Heart: Rhythm Normal Lungs: Clear Abdomen: Gravid Cervical Dilatation: 5cm Effacement: 75% Station: -3 Amniotic Fluid: Clear Heart Rate: 140's Accelerations: Accelerations Present Decelerations: No Decelerations Short Term Variability: Present Contractions on Admission: >10 Minutes Apart Intensity: Mild Labs Laboratory Tests Test 11/02/21 12:35 11/02/21 13:55 Range/Units Amniotic Fluid [place] Test POSITIVE NEGATIVE White Blood Count 11.5 H 4.3-11.0 10^3/uL Red Blood Count 4.52 3.80-5.11 10^6/uL Hemoglobin 12.7 11.5-16.0 g/dL Hematocrit 38 35-52 % Mean Corpuscular Volume 83 80-99 fL Mean Corpuscular Hemoglobin 28 25-34 pg Mean Corpuscular Hemoglobin Concent 34 32-36 g/dL Red Cell Distribution Width 13.9 10.0-14.5 % Platelet Count 204 130-400 10^3/uL Mean Platelet Volume 9.8 9.0-12.2 fL Immature Granulocyte % (Auto) 1 % Neutrophils (%) (Auto) 70 42-75 % Lymphocytes (%) (Auto) 21 12-44 % Monocytes (%) (Auto) 8 0-12 % Eosinophils (%) (Auto) 0 0-10 % Basophils (%) (Auto) 0 0-10 % Neutrophils # (Auto) 8.0 H 1.8-7.8 10^3/uL Lymphocytes # (Auto) 2.4 1.0-4.0 10^3/uL Monocytes # (Auto) 0.9 0.0-1.0 10^3/uL Eosinophils # (Auto) 0.0 0.0-0.3 10^3/uL Basophils # (Auto) 0.0 0.0-0.1 10^3/uL Immature Granulocyte # (Auto) 0.1 0.0-0.1 10^3/uL OB - Assessment/Plan/Diagnosis Assessment Assessment: rupture of membranes (at 36w3d gestation) Admission Dx 1. IUP at 36w3d gestation with SROM Admission Status: Inpatient Order (span 2 midnights) Reason for Inpatient Admission: L&D Plan Plan: Expectant Management Induction Method: per Pitocin Protocol Other Plan -desires epidural later -pitocin NILDA DE LA CRUZ MD Nov 02, 2021 15:03
[2021-11-02] MEDS ORDERED: CALCIUM CARBONATE 500 MG (TUMS) TAB.CHEW ONE (15:05)
[2021-11-02] MEDS ORDERED: CALCIUM CARBONATE 500 MG (TUMS) TAB.CHEW PO PRN ×2 (15:15)
[2021-11-02 15:40] LABS: BILIRUBIN,URINE NEGATIVE (NEGATIVE); CLARITY,URINE CLEAR; COLOR,URINE YELLOW; GLUCOSE, URINE (UA) NEGATIVE (NEGATIVE); KETONES,URINE NEGATIVE (NEGATIVE); LEUKOCYTE ESTERASE ,URINE 1+ (NEGATIVE); NITRITE,URINE NEGATIVE (NEGATIVE); PH,URINE 6.5 (5-9); PROTEIN,URINE NEGATIVE (NEGATIVE)
[2021-11-02 15:47] LABS: BACTERIA,URINE FEW /HPF
[2021-11-02] MEDS ORDERED: fentaNYL 2 mcg/ml BUPIVA 0.125 100 ML ONE (17:02)
[2021-11-02] MEDS ORDERED: LACTATED RINGERS 1,000 ML IV ONE ×2 (17:03→18:15)
[2021-11-02] MEDS ORDERED: BUPIVACAINE 0.25% 30 ML (SENSORCAINE) VIAL ONE (17:37)
[2021-11-02] MEDS ORDERED: fentaNYL INJ 100 MCG/2 ML AMP ONE (17:37)
[2021-11-02] MEDS ORDERED: fentaNYL 2 mcg/ml BUPIVA 0.125 100 ML IV SCH (18:15)
[2021-11-02] MEDS ORDERED: ONDANSETRON 4 MG/2 ML (SDV) Z0FRAN IV PRN (18:15)
[2021-11-02] MEDS ORDERED: CATHETER FLUSH 10 ML SYR IV PRN (18:15)
[2021-11-02] MEDS ORDERED: NALOXONE 0.4 MG/ML 1 ML (NARCAN) VIAL IV PRN ×2 (18:15→21:00)
[2021-11-02] MEDS ORDERED: diphenhydrAMINE 50 MG/ML INJ (BENADRYL) IV PRN (18:15)
[2021-11-02] MEDS ORDERED: OXYTOCIN PRE-MIX DRIP 500 ML IV ONE (19:35)
[2021-11-02] MEDS ORDERED: MEPIVACAINE (CARBOCAINE) 2% 50 ML VIAL ONE (19:35)
[2021-11-02] MEDS ORDERED: WITCH HAZEL(TUCKS) 40 EA JAR TOP PRN (21:00)
[2021-11-02] MEDS ORDERED: TETANUS,DIPTH,PERTUSS P/F (BOOSTRIX) 0.5 ML VIAL IM ONE (21:00)
[2021-11-02] MEDS ORDERED: BENZOCAINE/MENTHOL (DERMOPLAST) 56 ML CAN TP PRN (21:00)
[2021-11-02] MEDS ORDERED: MEASLES,MUMPS,RUBELLA 1 EA INJ SQ ONE (21:00)
--- NOTE | 2021-11-02 21:00 | OB Labor & Delivery Record ---
L&D History Date of Service Date of Service: Nov 02, 2021 History Expected Date of Delivery: Nov 27, 2021 Gestational Age in Weeks: 36 Hx : 3 Hx Para: 3 Complications Events: Labor <37 wks Operative Indications (Cesarea: N/A-Vaginal Delivery Intrapartal Events: None L&D Stage1 Stage One Onset of Labor - Date: Nov 02, 2021 Onset of Labor - Time: 11:30 Monitors and Tracing Monitor Mode: Internal Heart Rate: 120 Monitor Accelerations: Uniform Monitor Decelerations: None Station: 0 Chief Compliance Officer Variability: Average (6-10) Short Term Variability: Present Presentation: Vertex Vital Signs VS - Last 72 Hours, by Label 11/02/21 11/02/21 11/02/21 11/02/21 13:05 15:15 15:30 15:45 Temp 36.4 Pulse 64 66 71 74 Resp 18 B/P (MAP) 111/72 (85) 112/64 (80) 115/66 (82) Pulse Ox 98 O2 Delivery Room Air 11/02/21 11/02/21 11/02/21 11/02/21 16:00 16:15 16:30 17:00 Temp 36.2 Pulse 70 69 71 79 B/P (MAP) 117/64 (81) 108/63 (78) 111/62 (78) 120/65 (83) 11/02/21 11/02/21 11/02/21 11/02/21 17:15 17:30 17:45 17:48 Temp 36.1 Pulse 72 71 80 70 B/P (MAP) 131/65 (87) 116/64 (81) 144/69 (94) 131/63 (85) Pulse Ox 99 99 O2 Delivery Room Air Room Air 11/02/21 11/02/21 11/02/21 11/02/21 17:50 17:53 17:56 17:59 Pulse 80 76 80 69 B/P (MAP) 130/70 (90) 132/80 (97) 121/75 (90) 115/63 (80) Pulse Ox 100 100 98 98 O2 Delivery Room Air Room Air Room Air Room Air 11/02/21 11/02/21 11/02/21 11/02/21 18:02 18:05 18:08 18:15 Pulse 70 69 65 69 B/P (MAP) 110/56 (74) 112/58 (76) 103/54 (70) 113/56 (75) Pulse Ox 98 98 98 98 O2 Delivery Room Air Room Air Room Air Room Air 11/02/21 11/02/21 11/02/21 11/02/21 18:20 18:25 18:30 18:35 Pulse 63 63 64 66 B/P (MAP) 113/57 (75) 112/58 (76) 120/55 (76) 101/55 (70) Pulse Ox 99 99 98 98 O2 Delivery Room Air Room Air Room Air Room Air 11/02/21 11/02/21 11/02/21 11/02/21 18:40 18:45 18:50 19:15 Temp 35.8 Pulse 71 69 71 68 Resp 18 B/P (MAP) 101/55 (70) 114/62 (79) 102/58 (73) 113/64 (80) Pulse Ox 100 99 99 100 O2 Delivery Room Air Room Air Room Air Room Air 11/02/21 11/02/21 11/02/21 19:30 19:45 19:59 Pulse 68 88 94 Resp 18 18 18 B/P (MAP) 114/69 (84) 122/96 (105) 113/72 (86) Pulse Ox 100 99 100 O2 Delivery Room Air Room Air Room Air Signs of Distress by FHT Signs of Distress no Rupture of Membranes Spontaneous Ruture of Membrane: Yes Amniotic Membrane Rupture Time: 1130 Amniotic Membrane Fluid Desc.: Clear Amniotic Fluid Membrane Tests: Fern Positive Vaginal Bleeding Description: None Induction/Anesthesia Epidural Cath Placement - Time: 1748 L&D Stage2 Stage Two Stage II Date: Nov 02, 2021 Stage II Time: 19:59 Monitors and Tracing Monitor Mode: Internal Heart Rate: 120 Monitor Accelerations: Uniform Monitor Decelerations: None Assisted Variability: Average (6-10) Short Term Variability: Present Position: Left Occiput Anterior Presentation: Vertex Signs of Distress by FHT Signs of Distress no Cord Descript/Complications Cord Vessel Description: 3 Vessels Delivery Type Delivery Method: Spontaneous Vaginal Anterior Shoulder: Left Episiotomy/Perineal Laceration Laceraction(s)/Extensions: No Condition of Infant Delivery 1 minute Comment: 9 5 minute Comment: 9 Condition of Infant Condition of : Living Exam: No Observed Abnormalities Resuscitation Resuscitation: N/A - Spontaneous Resp L&D Stage3 Stage Three Stage III Date: Nov 02, 2021 Stage III Time: 20:04 Pictocin Pitocin Administration mu/min: 10 Pitocin ml/hr: 10 Pitocin Administration Comment: 1835 PITOCIN INCREASED PER PROTOCOL. Placenta Delivery Placenta Delivery: Spontaneous Delivery Summary Summary Estimated blood loss (mL): 50 Condition of Delivery Examined: Cervix Examined Post Hemorrhage: No Intervention Required none NILDA DE LA CRUZ MD Nov 02, 2021 21:00
[2021-11-02] MEDS ORDERED: IBUPROFEN 600 MG (MOTRIN) TAB PO ONE (21:19)
[2021-11-02] MEDS: IBUPROFEN 600 MG (MOTRIN) TAB PO SCH (21:20)
[2021-11-02] MEDS ORDERED: ACETAMINOPHEN 500 MG TAB (TYLENOL) PO PRN (21:45)
[2021-11-02] MEDS ORDERED: diphenhydrAMINE 25 MG TAB (BENADRYL) PO PRN (21:45)
[2021-11-03 01:00] VITALS: BP 94/54
[2021-11-03] MEDS ORDERED: CALCIUM CARBONATE 500 MG (TUMS) TAB.CHEW ONE (02:00)
[2021-11-03] MEDS: CALCIUM CARBONATE 500 MG (TUMS) TAB.CHEW PO PRN ×2 (02:05→02:06)
[2021-11-03 05:05] VITALS: BP 122/73
[2021-11-03 05:45] LABS: BASOPHILS # (AUTO) 0.1 10^3/uL (0.0-0.1); BASOPHILS % (AUTO) 0 % (0-10); EOSINOPHILS # (AUTO) 0.1 10^3/uL (0.0-0.3); EOSINOPHILS % (AUTO) 1 % (0-10); HEMATOCRIT 35 % (35-52); HEMOGLOBIN 11.6 g/dL (11.5-16.0); LYMPHOCYTES # (AUTO) 2.8 10^3/uL (1.0-4.0); LYMPHOCYTES % (AUTO) 23 % (12-44); MEAN CORPUSCULAR HEMOGLOBIN 28 pg (25-34); MEAN CORPUSCULAR HGB CONC 33 g/dL (32-36); MEAN CORPUSCULAR VOLUME 84 fL (80-99); MEAN PLATELET VOLUME 10.3 fL (9.0-12.2); MONOCYTES # (AUTO) 1.1 10^3/uL (0.0-1.0); MONOCYTES % (AUTO) 9 % (0-12); NEUTROPHILS # (AUTO) 7.8 10^3/uL (1.8-7.8); NEUTROPHILS % (AUTO) 66 % (42-75); PLATELET COUNT 210 10^3/uL (130-400); WHITE BLOOD COUNT 11.9 10^3/uL (4.3-11.0)
--- NOTE | 2021-11-03 07:19 | Anesthesia-Regional Post-Op ---
Regional Patient Condition Mental Status: Alert, Oriented x3 Circulation: Same as Pre-Op Headache: Absent Sensation: Full Recovery Motor Block: Absent Post Op Complications Complications None Follow Up Care/Instructions Patient Instructions None needed. Anesthesia/Patient Condition Patient is doing well, no complaints, stable vital signs, no apparent adverse anesthesia problems. No complications reported per nursing. D/C home per [facility] Criteria: Yes ZACARIAS SADLER CRNA Nov 03, 2021 07:19
[2021-11-03] MEDS: IBUPROFEN 600 MG (MOTRIN) TAB PO SCH ×3 (10:50→23:51)
[2021-11-03] MEDS: DOCUSATE SODIUM 100 MG (COLACE) CAP PO SCH ×3 (10:50→22:05)
[2021-11-03] MEDS: ACETAMINOPHEN 500 MG TAB (TYLENOL) PO SCH ×3 (10:51→23:50)
[2021-11-03] MEDS: PRENATAL VITAMIN 1 EA TAB PO SCH (10:51)
[2021-11-03 10:52] VITALS: BP 116/64
[2021-11-03 17:57] VITALS: BP 118/69
[2021-11-03 23:50] VITALS: BP 121/79
[2021-11-04 06:00] VITALS: BP 137/77
[2021-11-04] MEDS: ACETAMINOPHEN 500 MG TAB (TYLENOL) PO SCH (06:04)
[2021-11-04] MEDS: IBUPROFEN 600 MG (MOTRIN) TAB PO SCH (06:04)
[2021-11-04 10:00] VITALS: BP 116/66
[2021-11-04] MEDS: DOCUSATE SODIUM 100 MG (COLACE) CAP PO SCH (10:06)
[2021-11-04] MEDS: PRENATAL VITAMIN 1 EA TAB PO SCH (10:06)
[2021-11-04] MEDS ORDERED: IBUP-844 PO (11:44)
[2021-11-04] MEDS ORDERED: DOCU100C37 PO (11:44)
--- NOTE | 2021-11-04 11:45 | Discharge Summary ---
Discharge Inst-Women's Serv Depart Medications New, Converted or Re-Newed RX: Transmitted to Pharmacy New Medications: Docusate Sodium (Docusate Sodium) 100 Mg Capsule 100 MG PO BID, #60 CAP 0 Refills Ibuprofen (Ibu) 600 Mg Tablet 600 MG PO Q6HR PRN for PAIN-MODERATE (5-7), #60 TAB 0 Refills Continued Medications: Vit/Iron Fumarate/FA ( Vitamins Tablet) 28 Mg Iron-800 Mcg Tabl et 1 EACH PO DAILY, TAB Discontinued Medications: Acetaminophen/Diphenhydramine (Tylenol Pm Ex-Strength Caplet) 500 Mg-25 Mg Tablet 1 EACH PO PRN, TAB Follow Up/Instructions Goal/Follow Up: Follow up with Dr. De La Cruz in 6 weeks for visit. Activity Activity: Activity as Tolerated (avoid strenuous activity x 6 weeks) Nothing Inside Vagina: No Douching, No [place], No Tampons Diet Discharge Diet: Regular Diet Symptoms to Report to : Bleeding Excessive, Fever Over 101 Degrees F, Vaginal Bleeding Increase, Lightheadedness, Vaginal Discharge Foul, Dizziness/Fainting, Shortness of Breath For Any Problems or Questions: Contact Your Physician Copies To 1: NILDA DE LA CRUZ MD,SCOOTER Valdez MD Nov 04, 2021 11:45
--- NOTE | 2021-11-04 12:55 | Discharge Summary ---
EZEQUIEL ROSENTHAL 11/04/21 1251: Discharge Summary Hospital Course Hospital Course Date of Admission: Nov 02, 2021 at 13:30 Admission Diagnosis : Spontaneous Rupture of Membrane Family Physician/Provider: Ld Mendosa MD Date of Discharge: 11/04/21 Discharge Diagnosis: [status post spontaneous vaginal delivery] Hospital Course: [Presented in labor at 36w3d gestation at 11:30 on 11/04/21 with SROM. Normal without complications prior to labor. Dextrose/LR fluids given for maintenance fluid and IV fentanyl was given for pain management at first. Pitocin was started and progressed per protocol. Epidural was placed at 1748 and used for pain control for rest of delivery. She preceded to deliver viable 5lb 13oz. male child vaginally at 20:04 with Apgars of 9 and 9 at one and five minutes. Placenta shortly followed with no complications. course was uneventful and patient's pain was well controlled with oral pain medications. She was discharged on day 2. ] Labs and Pending Lab Test: Microbiology 11/02/21 Urine Culture - Final, Complete Escherichia coli Home Meds Active Docusate Sodium 100 Mg Capsule 100 Mg PO BID Ibu (Ibuprofen) 600 Mg Tablet 600 Mg PO Q6HR PRN Reported Vitamins Tablet ( Vit/Iron Fumarate/FA) 28 Mg Iron-800 Mcg Tablet 1 Each PO DAILY Patient Discharge Instructions Day 2 status post vaginal delivery at 36 weeks and 3 days gestation -Continue PO pain meds and regular diet as tolerated. Continue trying to breastfeed and pump. Milk production should increase, but in the meantime continue to supplement with formula. Follow up with Dr. Mendosa in 6 weeks for visit and nothing in the vagina until cleared by Dr. Mendosa at visit as he deems appropriate. Continue to take ducusate to allow BM to be soft and prevent need to strain when they return. If you fail to have spontaneous return of bowel movements, abdominal distension, or abdominal pain in the following days then check in with Dr. Mendosa to see if anything else needs done. Activity: Activity as Tolerated (No strenous activity for 6 weeks) Driving Instructions: You May Drive Nothing Inside Vagina: No Douching, No Post Falls, No Tampons Discharge Diet: No Restrictions Symptoms to Report to : Bleeding Excessive, Fever Over 101 Degrees F, Vaginal Bleeding Increase, Lightheadedness, Vaginal Discharge Foul, Dizziness/Fainting, Shortness of Breath For Any Problems or Questions: Contact Your Physician, Go to Emergency Room (If severe) Discharge Physical Examination Allergies: Coded Allergies: amoxicillin (Verified Allergy, Mild, rash, 09/19/20) pertussis vaccine,adsorbed (Verified Allergy, Unknown, 09/19/20) Vitals & I&Os Vital Signs Date Time Temp Pulse Resp B/P (MAP) Pulse Ox O2 Delivery O2 Flow Rate FiO2 11/04/21 10:00 36.5 70 18 116/66 (83) 95 Room Air General Appearance: No Apparent Distress, WD/WN HEENT: PERRL/EOMI, Pharynx Normal Respiratory: Lungs Clear, Normal Breath Sounds, No Accessory Muscle Use Cardiovascular: Regular Rate, Rhythm, No Edema, No Murmur, Normal Peripheral Pulses Gastrointestinal: Normal Bowel Sounds, Non Tender, Soft, Other (fundus firm and below umbilicas) Extremity: Normal Capillary Refill, No Pedal Edema Skin: Normal Color, Warm/Dry Neurologic/Psychiatric: Alert, Oriented x3, Normal Mood/Affect Discharge Summary Date of Admission Nov 02, 2021 at 13:30 Date of Discharge Discharge Date: Nov 04, 2021 SCOOTER STANTON MD 11/06/21 2009: Discharge Summary Discharge Physical Examination Allergies: Coded Allergies: amoxicillin (Verified Allergy, Mild, rash, 09/19/20) pertussis vaccine,adsorbed (Verified Allergy, Unknown, 09/19/20) Supervisory-Addendum Brief Verification & Attestation Participated in pt care: history, MDM, physical Personally performed: exam, history, MDM, supervision of care Care discussed with: Medical Student Procedures: n/a I personally saw and examined patient and repeated the history and exam documented by the medical student. I directed the plan of care as documented by the medical student. EZEQUIEL ROSENTHAL Nov 04, 2021 12:51 SCOOTER STANTON MD Nov 06, 2021 20:09
== END 2021-11-04 15:40 | disposition home or self-care (01) | DRG 807 ==
LOC: WSo 12:16 → LDRP 12:16 → WSo 13:30 → LDRP 20:00 → WS 20:00 → LDRP 21:30
PROVIDERS: ADMIT Family Medicine; ATTEND Family Medicine
PROC: 10E0XZZ Delivery of Products of Conception, External Approach (ICD-10-PCS; principal; 2021-11-02)
PROC: 3E033VJ Introduction of Other Hormone into Peripheral Vein, Percutaneous Approach (ICD-10-PCS; 2021-11-02)
DX: O60.14X0 Preterm labor third trimester with preterm delivery third trimester, not applicable or unspecified (principal); Z37.0 Single live birth; Z3A.36 36 weeks gestation of pregnancy
CPT/HCPCS: 36415; 81000; 85025; 86850; 86900; 86901; 87088; 89060; 99212